=== PATIENT | female | born 1970 | race Caucasian/White ===

== ENCOUNTER 2018-02-18 16:32 | Emergency (ER) | payer SELFPAY ==
[2018-02-18 17:11] LABS: Urine Blood NEGATIVE (NEG); Urine Glucose 1+ (NEG); Urine Protein NEGATIVE (NEG); Urine Specific Gravity >1.030 (1.005-1.030); Urine pH 5.5 (5.0-7.0)
[2018-02-18 17:20] LABS: Urine Bacteria <20 /HPF (<20); Urine Culture Reflex Order NOT NEEDED; Urine RBC NONE SEEN /HPF (NONE SEEN)
[2018-02-18 19:41] LABS: Absolute Monocytes 1.2 K/uL (0.1-1.3); Absolute Neutrophil 8.1 K/uL (1.8-8.0); Basophils % 0.7 % (0-1.3); Eosinophils % 1.3 % (0-4.4); Hematocrit 41.2 % (36.0-45.0); Lymphocytes % 34.2 % (15.3-44.8); MCH 29.9 pg (27.0-35.0); MPV 9.7 fL (7.6-11.3); Monocytes % 8.1 % (3.3-12.3); RBC Red Blood Cell Count 4.63 M/uL (3.86-4.86)
[2018-02-18 19:49] LABS: Potassium 3.8 mEq/L (3.6-5.0)
--- NOTE | 2018-02-18 20:45 | RAD REPORT ---
EXAM DESCRIPTION: CT - Abdomen Pelvis W Contrast - 02/18/2018 8:16 pm CLINICAL HISTORY: Abdominal pain/left upper quadrant pain x1 week COMPARISON: September 2017 TECHNIQUE: Computed axial tomography of the abdomen pelvis was obtained. 100 cc Isovue-300 was admin istered intravenously. Oral contrast was not requested which limits evaluation of bowel. All CT scans are performed using dose optimization technique as appropriate and may include automated exposure control or mA/KV adjustment according to patient size. FINDINGS: Fatty infiltration liver is present. Spleen, pancreas, adrenal and kidneys appear unremarkable. There is no evidence of diverticulitis. The appendix is normal. A 2 centimeter right ovarian cyst is present without significant free-fluid. The gallbladder has been removed. 7 millimeter right pericardiac lymph node is stable. The appendix appears normal IMPRESSION: 2 centimeter right ovarian cyst without significant free-fluid.
[2018-02-18] MEDS ORDERED: KETOROLAC 30 MG/ML INJ ONE (21:19)
--- NOTE | 2018-02-18 21:27 | EDPHYS ---
Physician Documentation [facility] Name: Pamela Bassett Age: 47 yrs Sex: Female : 1970 Arrival Date: 02/18/2018 Time: 16:33 Bed 13 Private MD: Lavon Hightower ED Physician Sandoval Morton HPI: 02/18 17:55 This 47 yrs old Female presents to ER via Ambulatory with complaints of Groin kb Pain. 17:55 The patient presents with abdominal pain in the left lower quadrant. Onset: The kb symptoms/episode began/occurred 1 week(s) ago. The symptoms do not radiate. Associated signs and symptoms: none. The symptoms are described as achy, constant. Modifying factors: The symptoms are alleviated by nothing, the symptoms are aggravated by nothing. Severity of pain: At its worst the pain was moderate in the emergency department the pain is unchanged. The patient has not experienced similar symptoms in the past. The patient has not recently seen a physician. Pt reports left lower abd pain that started a week ago. States she hasn't had any other symptoms. Called PCP today for continued pain and was told to come to ER for evaluation because they couldn't see her for 2 weeks. . 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 hb Historical: - Allergies: 16:38 No Known Allergies; hb - Home Meds: 16:38 diclofenac sodium 75 mg Oral TbEC 1 tab 2 times per day [Active]; dicyclomine 20 mg hb Oral tab 1 tab 3 times per day [Active]; lisinopril 5 mg Oral tab 1 tab once daily [Active]; losartan 50 mg Oral tab 1 tab once daily [Active]; metformin 500 mg Oral Tb24 1 tab once daily [Active]; promethazine 12.5 mg Oral tab 1 tab every 8 hours as needed [Active]; spironolactone 25 mg Oral tab 1 tab once daily [Active]; - PMHx: 16:38 Diabetes - NIDDM; Hypertension; Irritable bowel syndrome; Migraines; PUD; hb - PSHx: 16:38 Cholecystectomy; Tonsillectomy; hb - Immunization history:: Adult Immunizations up to date. - Social history:: Smoking status: Patient/guardian denies using tobacco. ROS: 17:54 Constitutional: Negative for fever, chills, and weight loss, Cardiovascular: Negative kb for chest pain, palpitations, and edema, Respiratory: Negative for shortness of breath, cough, wheezing, and pleuritic chest pain, Back: Negative for injury and pain, : Negative for injury, bleeding, discharge, and swelling, MS/Extremity: Negative for injury and deformity, Skin: Negative for injury, rash, and discoloration, Neuro: Negative for headache, weakness, numbness, tingling, and seizure. 17:54 Abdomen/GI: Positive for abdominal pain, Negative for nausea, vomiting, and diarrhea, constipation, abdominal cramps, abdominal distension, anorexia. Exam: 17:54 Constitutional: This is a well developed, well nourished patient who is awake, alert, kb and in no acute distress. Head/Face: Normocephalic, atraumatic. Chest/axilla: Normal chest wall appearance and motion. Nontender with no deformity. No lesions are appreciated. Cardiovascular: Regular rate and rhythm with a normal S1 and S2. No gallops, murmurs, or rubs. Normal PMI, no JVD. No pulse deficits. Respiratory: Lungs have equal breath sounds bilaterally, clear to auscultation and percussion. No rales, rhonchi or wheezes noted. No increased work of breathing, no retractions or nasal flaring. Back: No spinal tenderness. No costovertebral tenderness. Full range of motion. Skin: Warm, dry with normal turgor. Normal color with no rashes, no lesions, and no evidence of cellulitis. MS/ Extremity: Pulses equal, no cyanosis. Neurovascular intact. Full, normal range of motion. Neuro: Awake and alert, GCS 15, oriented to person, place, time, and situation. Cranial nerves II-XII grossly intact. Motor strength 5/5 in all extremities. Sensory grossly intact. Cerebellar exam normal. Normal gait. 17:54 Abdomen/GI: Inspection: abdomen appears normal, Bowel sounds: normal, in all quadrants, Palpation: soft, in all quadrants, nontender, in the right upper quadrant, left upper quadrant and right lower quadrant, moderate abdominal tenderness, in the left lower quadrant. Vital Signs: 16:38 BP 145 / 92; Pulse 93; Resp 20; Temp 98.9; Pulse Ox 100% on R/A; Weight 120.2 kg; hb Height 5 ft. 5 in. (165.10 cm); Pain 9/10; 18:00 BP 138 / 94; Pulse 87; Resp 18; Pulse Ox 99% on R/A; ph 20:28 BP 137 / 89; Pulse 84; Resp 18; Pulse Ox 99% on R/A; mt 21:00 BP 120 / 58; Pulse 88; Resp 16; Temp 97.9(O); Pulse Ox 99% on R/A; Pain 0/10; bs1 21:30 BP 123 / 86; Pulse 82; Resp 16; Temp 97.9(O); Pulse Ox 100% ; Pain 0/10; bs1 16:38 Body Mass Index 44.10 (120.20 kg, 165.10 cm) hb MDM: 17:18 Patient medically screened. kb 17:53 Data reviewed: vital signs, nurses notes. Data interpreted: Pulse oximetry: on room air kb is 100 %. Interpretation: normal. 21:26 Counseling: I had a detailed discussion with the patient and/or guardian regarding: the kb historical points, exam findings, and any diagnostic results supporting the discharge/admit diagnosis, lab results, radiology results, the need for outpatient follow up, a family practitioner, an OB/Gyne specialist, to return to the emergency department if symptoms worsen or persist or if there are any questions or concerns that arise at home. 02/18 16:39 Order name: Urine Microscopic Only; Complete Time: 17:21 kb 02/18 17:05 Order name: Urine Dipstick--Ancillary (enter results); Complete Time: 17:19 bd 02/18 17:05 Order name: Urine --Ancillary (enter results); Complete Time: 17:19 bd 02/18 17:22 Order name: CBC with Diff; Complete Time: 19:48 kb 02/18 17:22 Order name: Basic Metabolic Panel; Complete Time: 19:50 kb 02/18 17:22 Order name: CT Abd/Pelvis - W/Contrast; Complete Time: 20:46 kb 02/18 16:39 Order name: Urine Dipstick-Ancillary (obtain specimen); Complete Time: 18:29 kb 02/18 17:22 Order name: IV Start; Complete Time: 18:26 kb Administered Medications: 21:35 Drug: TORadol 30 mg Route: IVP; Site: right antecubital; bs1 22:16 Follow up: Response: No adverse reaction bs1 Disposition: 02/18/18 21:27 Discharged to Home. Impression: Lower abdominal pain, unspecified. - Condition is Stable. - Discharge Instructions: Abdominal Pain, Women. - Medication Reconciliation Form, Thank You Letter, Antibiotic Education, Prescription Opioid Use form. - Follow up: Emergency Department; When: As needed; Reason: Worsening of condition. Follow up: Private Physician; When: 2 - 3 days; Reason: Recheck today's complaints, Continuance of care, Re-evaluation by your physician. Addendum: 02/22/2018 19:16 Co-signature as Attending Physician, Sandoval Morton MD. g s Signatures: Dispatcher [employer] EDMS Melanie Mckeon, DONNA-Tri THOMPSON-Lashell Palacios, RN RN Sandoval Morton MD MD gs Salazar, Brittany, RN RN bs1 Corrections: (The following items were deleted from the chart) 02/18 22:16 21:27 02/18/2018 21:27 Discharged to Home. Impression: Lower abdominal pain, bs1 unspecified. Condition is Stable. Forms are Medication Reconciliation Form, Thank You Letter, Antibiotic Education, Prescription Opioid Use. Follow up: Emergency Department; When: As needed; Reason: Worsening of condition. Follow up: Private Physician; When: 2 - 3 days; Reason: Recheck today's complaints, Continuance of care, Re-evaluation by your physician. kb
--- NOTE | 2018-02-18 21:27 | ER ---
Nurse's Notes [facility] Name: Pamela Bassett Age: 47 yrs Sex: Female : 1970 Arrival Date: 02/18/2018 Time: 16:33 Bed 13 Private MD: Lavon Hightower Diagnosis: Lower abdominal pain, unspecified Presentation: 02/18 16:36 Presenting complaint: Patient states: Left groin pain 9/10 that radiates to LUQ x 1 hb week. Denies fever/urinary s/s. Transition of care: patient was not received from another setting of care. Onset of symptoms is unknown. Initial Sepsis Screen: Does the patient meet any 2 criteria? No. Patient's initial sepsis screen is negative. Does the patient have a suspected source of infection? No. Patient's initial sepsis screen is negative. Care prior to arrival: None. 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 hb Historical: - Allergies: 16:38 No Known Allergies; hb - Home Meds: 16:38 diclofenac sodium 75 mg Oral TbEC 1 tab 2 times per day [Active]; dicyclomine 20 mg hb Oral tab 1 tab 3 times per day [Active]; lisinopril 5 mg Oral tab 1 tab once daily [Active]; losartan 50 mg Oral tab 1 tab once daily [Active]; metformin 500 mg Oral Tb24 1 tab once daily [Active]; promethazine 12.5 mg Oral tab 1 tab every 8 hours as needed [Active]; spironolactone 25 mg Oral tab 1 tab once daily [Active]; - PMHx: 16:38 Diabetes - NIDDM; Hypertension; Irritable bowel syndrome; Migraines; PUD; hb - PSHx: 16:38 Cholecystectomy; Tonsillectomy; hb - Immunization history:: Adult Immunizations up to date. - Social history:: Smoking status: Patient/guardian denies using tobacco. Screenin:27 Abuse screen: Denies threats or abuse. Denies injuries from another. Nutritional ph screening: No deficits noted. Tuberculosis screening: No symptoms or risk factors identified. Fall Risk None identified. Assessment: 17:30 General: Appears in no apparent distress. comfortable, obese, well groomed, Behavior is ph calm, cooperative, appropriate for age, Denies fever. Pain: Complains of pain in left femoral area and left inguinal area. 19:15 Reassessment: Patient appears in no apparent distress at this time. Patient and/or bs1 family updated on plan of care and expected duration. Pain level reassessed. Patient is alert, oriented x 3, equal unlabored respirations, skin warm/dry/pink. 19:15 Neuro: Level of Consciousness is awake, alert, obeys commands. Cardiovascular: Denies bs1 chest pain, Heart tones S1 S2 present Capillary refill < 3 seconds Patient's skin is warm and dry. Respiratory: Airway is patent. GI: Parent/caregiver reports the patient having pain in left femoral/inguinal area. 20:15 Reassessment: Patient appears in no apparent distress at this time. No changes from bs1 previously documented assessment. Patient and/or family updated on plan of care and expected duration. Pain level reassessed. Patient is alert, oriented x 3, equal unlabored respirations, skin warm/dry/pink. 21:45 Reassessment: Patient appears in no apparent distress at this time. Patient and/or bs1 family updated on plan of care and expected duration. Pain level reassessed. Patient is alert, oriented x 3, equal unlabored respirations, skin warm/dry/pink. Patient states symptoms have improved. Vital Signs: 16:38 BP 145 / 92; Pulse 93; Resp 20; Temp 98.9; Pulse Ox 100% on R/A; Weight 120.2 kg; hb Height 5 ft. 5 in. (165.10 cm); Pain 9/10; 18:00 BP 138 / 94; Pulse 87; Resp 18; Pulse Ox 99% on R/A; ph 20:28 BP 137 / 89; Pulse 84; Resp 18; Pulse Ox 99% on R/A; mt 21:00 BP 120 / 58; Pulse 88; Resp 16; Temp 97.9(O); Pulse Ox 99% on R/A; Pain 0/10; bs1 21:30 BP 123 / 86; Pulse 82; Resp 16; Temp 97.9(O); Pulse Ox 100% ; Pain 0/10; bs1 16:38 Body Mass Index 44.10 (120.20 kg, 165.10 cm) hb ED Course: 16:33 Patient arrived in ED. as 16:33 Lavon Hightower MD is Private Physician. as 16:37 Triage completed. hb 16:38 Arm band placed on left wrist. hb 17:10 Marva Yates, RN is Primary Nurse. ph 17:18 Mel[facility] Mcke[facility]C [facility]. kb 17:18 Sandoval Morton MD is Attending Physician. kb 18:28 Patient has correct armband on for positive identification. Bed in low position. Call ph light in reach. Side rails up X 1. Pulse ox on. NIBP on. Warm blanket given. 18:28 Initial lab(s) drawn, by me, sent to lab. Inserted saline lock: 22 gauge in right ph antecubital area, using aseptic technique. Blood collected. 19:19 Radiology exam delayed due to lab results not completed at this time. (BUN/Creatinine). 19:43 Radiology exam delayed due to lab results not completed at this time. (BUN/Creatinine). nj 20:[address] via wheelchair. nj 20:16 CT completed. Patient tolerated procedure well. Patient moved back from CT. nj 20:16 CT Abd/Pelvis - W/Contrast In Process Unspecified. EDMS 22:13 No provider procedures requiring assistance completed. IV discontinued, bleeding bs1 controlled, No redness/swelling at site. Pressure dressing applied. Administered Medications: 21:35 Drug: TORadol 30 mg Route: IVP; Site: right antecubital; bs1 22:16 Follow up: Response: No adverse reaction bs1 Outcome: 21:27 Discharge ordered by MD. kb 22:13 Discharged to home ambulatory. bs1 22:13 Condition: stable 22:13 Discharge instructions given to patient, Instructed on discharge instructions, follow up and referral plans. Demonstrated understanding of instructions, follow-up care. 22:16 Patient left the ED. bs1 Signatures: Dispatcher [employer] EDMS Melanie Mckeon FNP-C FNP-Ckb Jones, Susan sj Martinez, Amelia as Marva Yates, DONTE KENT Lashell Diaz RN RN Nii Jackson Moriah il Nora Newman RN RN bs1 Corrections: (The following items were deleted from the chart) 22:13 21:24 BP 161 / 76; Pulse 73bpm; Resp 16bpm; Pulse Ox 96% RA; Temp 97.9F Oral; Pain bs1 0/10; bs1 22:13 22:10 BP 157 / 72; Pulse 73bpm; Resp 17bpm; Pulse Ox 100%; Temp 97.9F Oral; Pain 0/10; bs1 bs1
[2018-02-18 22:30] VITALS: TEMP 97.9
[2018-02-18 22:32] VITALS: BP 123/86; O2SAT 100
== END 2018-02-18 22:16 | disposition home or self-care (01) ==
LOC: ER 16:32
DX: R10.32 Left lower quadrant pain (principal); I10 Essential (primary) hypertension; E11.9 Type 2 diabetes mellitus without complications
CPT/HCPCS: 36415; 74177; 80048; 81003; 81015; 81025; 85025; 96374; 99284; Q9967

== ENCOUNTER 2018-04-12 12:46 | Emergency (ER) | payer SELFPAY ==
[2018-04-12] MEDS ORDERED: NA CHLORIDE 0.9% 1,000 ML ONE (13:31)
[2018-04-12 13:46] LABS: Absolute Lymphocytes (CBC) 3.2 K/uL (0.7-4.9); Absolute Monocytes 0.7 K/uL (0.1-1.3); Absolute Neutrophil 6.8 K/uL (1.8-8.0); Hematocrit 46.1 % (36.0-45.0); Lymphocytes % 29.1 % (15.3-44.8); MCH 29.8 pg (27.0-35.0); MCV 89.5 fL (80-100); MPV 9.9 fL (7.6-11.3); Monocytes % 6.2 % (3.3-12.3); RBC Red Blood Cell Count 5.15 M/uL (3.86-4.86)
[2018-04-12 14:20] LABS: ALT/SGPT 27 U/L (12-78); AST/SGOT 22 U/L (15-37); Albumin 3.7 g/dL (3.4-5.0); Alkaline Phosphatase 86 U/L (45-117); BUN Blood Urea Nitrogen 16 mg/dL (7-18); Bicarbonate 26 mmol/L (21-32); Bilirubin Direct 0.1 mg/dL (0-0.2); Bilirubin Total 0.7 mg/dL (0.2-1.0); Creatine Phosphokinase 38 U/L (26-192); Glucose Level 288 mg/dL (74-106); Potassium 4.4 mmol/L (3.5-5.1); Protein, Total 8.3 g/dL (6.4-8.2); Sodium Level 131 mmol/L (136-145)
--- NOTE | 2018-04-12 15:03 | EDPHYS ---
Physician Documentation [facility] Name: Pamela Bassett Age: 47 yrs Sex: Female : 1970 Arrival Date: 04/12/2018 Time: 12:48 Bed 23 Private MD: None, None ED Physician Harjinder Pool HPI: 04/12 13:20 This 47 yrs old Female presents to ER via Ambulatory with complaints of High jr8 Blood Sugar. 13:20 Onset: The symptoms/episode began/occurred gradually. Associated signs and symptoms: jr8 Pertinent positives: nausea, vomiting. Current symptoms: In the emergency department the patient's symptoms are unchanged from the initial presentation. The patient has not experienced similar symptoms in the past. The patient has been recently seen by a physician:. Patient stated that she blood glucose has been more elevated and A1c came back high. Stated that PCP increased her metformin from 1000mg per day to 2000mg per day and started her on glipizide but has not filled that one yet. Took first increased dose of metformin today. While going to work had n/v, GI upset. Feels weak and has had mild muscle cramping in thighs . 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 - Social history:: Smoking status: Patient/guardian denies using tobacco, Patient/guardian denies using alcohol. - Ebola Screening: : No symptoms or risks identified at this time. ROS: 13:20 Eyes: Negative for injury, pain, redness, and discharge, ENT: Negative for injury, jr8 pain, and discharge, Neck: Negative for injury, pain, and swelling, Cardiovascular: Negative for chest pain, palpitations, and edema, Respiratory: Negative for shortness of breath, cough, wheezing, and pleuritic chest pain, Back: Negative for injury and pain, MS/Extremity: Negative for injury and deformity, Skin: Negative for injury, rash, and discoloration, Neuro: Negative for headache, weakness, numbness, tingling, and seizure. 13:20 Constitutional: Positive for malaise. 13:20 Abdomen/GI: Positive for nausea and vomiting, Negative for abdominal pain, diarrhea, abdominal distension, anorexia, dysphagia, hematemesis, black/tarry stool, rectal pain, rectal bleeding, bowel incontinence, flatulence. Exam: 13:20 Eyes: Pupils equal round and reactive to light, extra-ocular motions intact. Lids and jr8 lashes normal. Conjunctiva and sclera are non-icteric and not injected. Cornea within normal limits. Periorbital areas with no swelling, redness, or edema. ENT: Nares patent. No nasal discharge, no septal abnormalities noted. Tympanic membranes are normal and external auditory canals are clear. Oropharynx with no redness, swelling, or masses, exudates, or evidence of obstruction, uvula midline. Mucous membranes moist. Neck: Trachea midline, no thyromegaly or masses palpated, and no cervical lymphadenopathy. Supple, full range of motion without nuchal rigidity, or vertebral point tenderness. No Meningismus. Cardiovascular: Regular rate and rhythm with a normal S1 and S2. No gallops, murmurs, or rubs. Normal PMI, no JVD. No pulse deficits. Respiratory: Lungs have equal breath sounds bilaterally, clear to auscultation and percussion. No rales, rhonchi or wheezes noted. No increased work of breathing, no retractions or nasal flaring. Abdomen/GI: Soft, non-tender, with normal bowel sounds. No distension or tympany. No guarding or rebound. No evidence of tenderness throughout. Back: No spinal tenderness. No costovertebral tenderness. Full range of motion. Skin: Warm, dry with normal turgor. Normal color with no rashes, no lesions, and no evidence of cellulitis. MS/ Extremity: Pulses equal, no cyanosis. Neurovascular intact. Full, normal range of motion. Neuro: Awake and alert, GCS 15, oriented to person, place, time, and situation. Cranial nerves II-XII grossly intact. Motor strength 5/5 in all extremities. Sensory grossly intact. Cerebellar exam normal. Normal gait. Vital Signs: 12:56 BP 151 / 90; Pulse 97; Resp 20; Temp 98.4; Pulse Ox 97% ; Weight 133.81 kg; Height 5 sv ft. 5 in. (165.10 cm); Pain 0/10; 14:06 BP 116 / 89; Pulse 87; Resp 18; Pulse Ox 96% ; tl3 14:52 BP 125 / 75; Pulse 92; Resp 16; Pulse Ox 99% on R/A; tl3 12:56 Body Mass Index 49.09 (133.81 kg, 165.10 cm) sv MDM: 13:02 Patient medically screened. jr8 15:01 Data reviewed: vital signs, nurses notes, lab test result(s), and as a result, I will jr8 discharge patient. Data interpreted: Pulse oximetry: on room air is 99 %. Interpretation: normal. Counseling: I had a detailed discussion with the patient and/or guardian regarding: the historical points, exam findings, and any diagnostic results supporting the discharge/admit diagnosis, lab results, the need for outpatient follow up, a family practitioner, to return to the emergency department if symptoms worsen or persist or if there are any questions or concerns that arise at home. Response to treatment: the patient's symptoms have markedly improved after treatment, patient is well hydrated. ED course: Discussed with patient that this was more then likely side effect of increasing metformin. To f/u with PCP for adjustment . 04/12 13:16 Order name: CBC with Diff; Complete Time: 14:21 04/12 13:16 Order name: Basic Metabolic Panel; Complete Time: 14:21 04/12 13:16 Order name: IV; Complete Time: 13:40 8 04/12 13:16 Order name: LFT's; Complete Time: 14:21 04/12 13:16 Order name: CK; Complete Time: 14:21 04/12 13:16 Order name: Glucose Level; Complete Time: 13:30 Administered Medications: 13:40 Drug: NS 0.9% 1000 ml Route: IV; Rate: 1000 ml; Site: right forearm; Delivery: Primary tl3 tubing; 14:52 Follow up: IV Status: Completed infusion; IV Intake: 1000ml tl3 Point of Care Testing: Blood Glucose: 12:57 Blood Glucose: 253 mg/dL; sv 15:09 Blood Glucose: 191 mg/dL; tl3 Ranges: Critical Glucose Levels:Adult <50 mg/dl or >400 mg/dl <40 mg/dl or >180 mg/dl Disposition: 16:51 Co-signature as Attending Physician, Harjinder Pool MD. rn Disposition: 04/12/18 15:02 Discharged to Home. Impression: Hyperglycemia, unspecified, Adverse effect of insulin and oral hypoglycemic [antidiabetic] drugs. - Condition is Stable. - Discharge Instructions: Hyperglycemia, Blood Glucose Monitoring, Adult. - Medication Reconciliation Form, Thank You Letter, Antibiotic Education, Prescription Opioid Use, Work release form form. - Follow up: Private Physician; When: 2 - 3 days; Reason: Recheck today's complaints, Continuance of care, Re-evaluation by your physician. - Problem is new. - Symptoms have improved. Signatures: Dispatcher [employer] [place] Lee RN RN sv Nieto, Roman, MD MD rn Roszak, Josh, PA PA jr8 Lynn Zambrano RN RN tl3 Corrections: (The following items were deleted from the chart) 15:18 15:02 04/12/2018 15:02 Discharged to Home. Impression: Hyperglycemia, unspecified; tl3 Adverse effect of insulin and oral hypoglycemic [antidiabetic] drugs. Condition is Stable. Forms are Medication Reconciliation Form, Thank You Letter, Antibiotic Education, Prescription Opioid Use. Follow up: Private Physician; When: 2 - 3 days; Reason: Recheck today's complaints, Continuance of care, Re-evaluation by your physician. Problem is new. Symptoms have improved. jr8
--- NOTE | 2018-04-12 15:03 | ER ---
Nurse's Notes [facility] Name: Pamela Bassett Age: 47 yrs Sex: Female : 1970 Arrival Date: 04/12/2018 Time: 12:48 Bed 23 Private MD: None, None Diagnosis: Hyperglycemia, unspecified;Adverse effect of insulin and oral hypoglycemic [antidiabetic] drugs Presentation: 04/12 12:52 Presenting complaint: Patient states: hyperglycemia [id number], Metformin changed yesterday sv from 500 mg to 2000 mg. c/o vomiting/dizziness. Transition of care: patient was not received from another setting of care. Onset of symptoms was April 12, 2018. Risk Assessment: Do you want to hurt yourself or someone else? Patient reports no desire to harm self or others. Care prior to arrival: None. 12:52 Method Of Arrival: Ambulatory sv 12:52 Acuity: ITALO 3 sv 15:10 Initial Sepsis Screen: Does the patient meet any 2 criteria? No. Patient's initial tl3 sepsis screen is negative. Does the patient have a suspected source of infection? No. Patient's initial sepsis screen is negative. 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 - Social history:: Smoking status: Patient/guardian denies using tobacco, Patient/guardian denies using alcohol. - Ebola Screening: : No symptoms or risks identified at this time. Screenin:05 Abuse screen: Denies threats or abuse. Nutritional screening: No deficits noted. tl3 Tuberculosis screening: No symptoms or risk factors identified. Fall Risk None identified. Assessment: 13:05 General: Appears uncomfortable, obese, well groomed, well developed, well nourished, tl3 Behavior is calm, cooperative, appropriate for age. Pain: Denies pain. Neuro: No deficits noted. Level of Consciousness is awake, alert, obeys commands, Oriented to person, place, time, situation, Appropriate for age. Cardiovascular: Heart tones S1 S2 present Patient's skin is warm and dry. Respiratory: Airway is patent Respiratory effort is even, unlabored, Respiratory pattern is regular, symmetrical. GI: Reports nausea, vomiting, since three times today. Pt Metformin dose was increased to 2000 mg per day yesterday had 1000 mg last pm and 1000 mg this am, pt called PCP and was told to come in to ER since she was vomiting. Glipizide also prescribed yesterday but not picked up from the pharmacy yet. 13:05 : No signs and/or symptoms were reported regarding the genitourinary system. EENT: No tl3 signs and/or symptoms were reported regarding the EENT system. Derm: No signs and/or symptoms reported regarding the dermatologic system. Musculoskeletal: No signs and/or symptoms reported regarding the musculoskeletal system. 14:52 Reassessment: Patient appears in no apparent distress at this time. Patient and/or tl3 family updated on plan of care and expected duration. Pain level reassessed. Patient is alert, oriented x 3, equal unlabored respirations, skin warm/dry/pink. pt resting quietly. Vital Signs: 12:56 BP 151 / 90; Pulse 97; Resp 20; Temp 98.4; Pulse Ox 97% ; Weight 133.81 kg; Height 5 sv ft. 5 in. (165.10 cm); Pain 0/10; 14:06 BP 116 / 89; Pulse 87; Resp 18; Pulse Ox 96% ; tl3 14:52 BP 125 / 75; Pulse 92; Resp 16; Pulse Ox 99% on R/A; tl3 12:56 Body Mass Index 49.09 (133.81 kg, 165.10 cm) sv ED Course: 12:48 Patient arrived in ED. mr 12:48 None, None is Private Physician. mr 12:54 Triage completed. sv 12:57 Arm band placed on right wrist. sv 12:59 Lynn Zambrano, DONTE is Primary Nurse. tl3 13:02 Luis Miguel Bryant PA is PHCP. jr8 13:02 Harjinder Pool MD is Attending Physician. jr8 13:05 Patient has correct armband on for positive identification. Bed in low position. Call tl3 light in reach. Side rails up X 1. 13:05 No provider procedures requiring assistance completed. tl3 13:41 Initial lab(s) drawn, by me, sent to lab. Inserted saline lock: 20 gauge in right tl3 forearm, using aseptic technique. Blood collected. 15:09 IV discontinued, intact, bleeding controlled, No redness/swelling at site. Pressure tl3 dressing applied. Administered Medications: 13:40 Drug: NS 0.9% 1000 ml Route: IV; Rate: 1000 ml; Site: right forearm; Delivery: Primary tl3 tubing; 14:52 Follow up: IV Status: Completed infusion; IV Intake: 1000ml tl3 Point of Care Testing: Blood Glucose: 12:57 Blood Glucose: 253 mg/dL; sv 15:09 Blood Glucose: 191 mg/dL; tl3 Ranges: Intake: 14:52 IV: 1000ml; Total: 1000ml. tl3 Outcome: 15:02 Discharge ordered by MD. corado 15:10 Discharged to home ambulatory. tl3 15:10 Condition: good 15:10 Discharge instructions given to patient, Instructed on discharge instructions, follow up and referral plans. Demonstrated understanding of instructions, follow-up care, medications. 15:18 Patient left the ED. tl3 Signatures: Africa Olivarez, RN RN Birgit Sarmiento mr Luis Miguel Bryant PA PA jr8 Lowrey, Tammy, RN RN tl3 Corrections: (The following items were deleted from the chart) 13:11 13:05 GI: Reports nausea, vomiting, since three times today. Pt Metformin dose was tl3 increased to 2000 mg per day yesterday had 1000 mg last pm and 1000 mg this am, pt called PCP and was told to come in to ER since she was vomiting tl3
[2018-04-12 15:25] VITALS: TEMP 98.4
[2018-04-12 15:30] VITALS: BP 125/75; O2SAT 99
== END 2018-04-12 15:18 | disposition home or self-care (01) ==
LOC: ER 12:46
DX: E11.65 Type 2 diabetes mellitus with hyperglycemia (principal); T38.3X5A Adverse effect of insulin and oral hypoglycemic [antidiabetic] drugs, initial encounter; I10 Essential (primary) hypertension
CPT/HCPCS: 36415; 80048; 80076; 82550; 82962; 85025; 96360; 99284; J7030

== ENCOUNTER 2018-07-06 13:59 | Emergency (ER) | payer SELFPAY ==
--- NOTE | 2018-07-06 15:07 | RAD REPORT ---
EXAM DESCRIPTION: Alycia Single View07/06/2018 2:42 pm CLINICAL HISTORY: Chest pain COMPARISON: September 2017 FINDINGS: The lungs appear clear of acute infiltrate. The heart is upper limits normal size IMPRESSION: No acute abnormalities displayed
[2018-07-06 15:25] LABS: Absolute Lymphocytes (CBC) 4.7 K/uL (0.7-4.9); Absolute Monocytes 0.7 K/uL (0.1-1.3); Absolute Neutrophil 6.8 K/uL (1.8-8.0); Basophils % 0.6 % (0-1.3); Eosinophils % 1.2 % (0-4.4); Hematocrit 43.4 % (36.0-45.0); Lymphocytes % 37.7 % (15.3-44.8); MCH 29.9 pg (27.0-35.0); MCV 89.6 fL (80-100); Monocytes % 5.9 % (3.3-12.3); RBC Red Blood Cell Count 4.84 M/uL (3.86-4.86)
[2018-07-06 15:36] LABS: Protime INR 0.97
[2018-07-06 15:48] LABS: ALT/SGPT 25 U/L (12-78); AST/SGOT 14 U/L (15-37); Albumin 3.7 g/dL (3.4-5.0); Alkaline Phosphatase 82 U/L (45-117); BUN Blood Urea Nitrogen 13 mg/dL (7-18); Bicarbonate 25 mmol/L (21-32); Bilirubin Direct 0.2 mg/dL (0-0.2); Bilirubin Total 0.6 mg/dL (0.2-1.0); CKMB Creatine Kinase MB < 1.0 ng/mL (0.3-3.6); Creatine Phosphokinase 41 U/L (26-192); Glucose Level 226 mg/dL (74-106); Magnesium 1.8 mg/dL (1.8-2.4); NT PRO-BNP 91 pg/mL (<125); Potassium 4.2 mmol/L (3.5-5.1); Sodium Level 134 mmol/L (136-145); Troponin (Emerg Dept Use Only) < 0.02 ng/mL (0.0-0.045)
[2018-07-06 15:56] LABS: Urine Blood NEGATIVE (NEG); Urine Glucose 2+ (NEG); Urine Protein NEGATIVE (NEG)
[2018-07-06] MEDS ORDERED: ACETAMINOPHEN 325 MG TABLET ONE (16:15)
[2018-07-06] MEDS ORDERED: NA CHLORIDE 0.9% 1,000 ML ONE ×2 (16:40→20:25)
--- NOTE | 2018-07-06 18:03 | EDPHYS ---
Physician Documentation [facility] Name: Pamela Bassett Age: 48 yrs Sex: Female : 1970 Arrival Date: 07/06/2018 Time: 14:07 Bed 19 Private MD: ED Physician Korey Scruggs HPI: 07/06 14:47 This 48 yrs old Female presents to ER via EMS with complaints of Weakness, jmm elevated glucose. 14:47 Onset: The symptoms/episode began/occurred this morning. The patient has experienced jmm similar episodes in the past. This is a 48 year old female with a history of DM, HTN that presents to the ED with generalized weakness. Patient states her blood glucose has been elevated at home. Is currently taking metformin XR 1000 mg BID. Patient patricia SOB, vomiting, abdominal pain, cough. . 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 - Social history:: Smoking status: Patient/guardian denies using tobacco. - Ebola Screening: : Patient negative for fever greater than or equal to 101.5 degrees Fahrenheit, and additional compatible Ebola Virus Disease symptoms Patient denies exposure to infectious person Patient denies travel to an Ebola-affected area in the 21 days before illness onset No symptoms or risks identified at this time. ROS: 14:47 Eyes: Negative for injury, pain, redness, and discharge, Cardiovascular: Negative for jmm chest pain, palpitations, and edema, Respiratory: Negative for shortness of breath, cough, wheezing, and pleuritic chest pain, Abdomen/GI: Negative for abdominal pain, nausea, vomiting, diarrhea, and constipation. 14:47 Constitutional: Positive for malaise. 14:47 Neuro: Positive for weakness. 14:47 All other systems are negative. Exam: 14:47 Head/Face: atraumatic. Chest/axilla: Normal chest wall appearance and motion. [facility] Cardiovascular: Regular rate and rhythm. No edema appreciated Respiratory: Normal respirations, no respiratory distress appreciated Abdomen/GI: Non distended, soft 14:47 Constitutional: The patient appears in no acute distress, alert, awake. 14:47 Abdomen/GI: Inspection: abdomen appears normal, Bowel sounds: normal, Palpation: abdomen is soft and non-tender. 14:47 Back: ROM is normal. 14:47 Musculoskeletal/extremity: ROM: intact in all extremities. 14:47 Skin: Appearance: Color: normal in color. 14:47 Neuro: Orientation: is normal, Mentation: is normal, Memory: is normal. 14:47 Psych: Behavior/mood is pleasant, cooperative. Vital Signs: 14:12 BP 130 / 74; Pulse 59; Resp 18; Pulse Ox 100% on R/A; Weight 122.47 kg; Height 5 ft. 5 em in. (165.10 cm); Pain 5/10; 15:30 BP 117 / 66; Pulse 87; Resp 18; Pulse Ox 100% on R/A; Pain 5/10; em 16:39 BP 118 / 73; Pulse 87; Resp 16; Pulse Ox 98% on R/A; em 17:54 BP 107 / 72; Pulse 78; Resp 16; Pulse Ox 98% on R/A; Pain 2/10; em 14:12 Body Mass Index 44.93 (122.47 kg, 165.10 cm) em MDM: 14:45 Patient medically screened. [facility] 17:26 Data reviewed: vital signs, nurses notes, lab test result(s), EKG, radiologic studies. [facility] Data interpreted: Pulse oximetry: on room air is 98 %. Interpretation: normal. Counseling: I had a detailed discussion with the patient and/or guardian regarding: the historical points, exam findings, and any diagnostic results supporting the discharge/admit diagnosis, lab results, radiology results, the need for outpatient follow up, to return to the emergency department if symptoms worsen or persist or if there are any questions or concerns that arise at home. 07/06 14:17 Order name: Basic Metabolic Panel [facility] 07/06 14:17 Order name: CBC with Diff; Complete Time: 16:03 [facility] 07/06 14:17 Order name: Ckmb; Complete Time: 16:03 [facility] 07/06 14:17 Order name: CPK; Complete Time: 16:03 [facility] 07/06 14:17 Order name: LFT's; Complete Time: 16:03 [facility] 07/06 14:17 Order name: Magnesium; Complete Time: 16:03 [facility] 07/06 14:17 Order name: NT PRO-BNP; Complete Time: 16:03 [facility] 07/06 14:17 Order name: PT-INR; Complete Time: 16:03 [facility] 07/06 14:17 Order name: Ptt, Activated; Complete Time: 16:03 [facility] 07/06 14:17 Order name: Troponin (emerg Dept Use Only); Complete Time: 16:03 [facility] 07/06 14:17 Order name: Basic Metabolic Panel; Complete Time: 16:03 [facility] 07/06 15:23 Order name: Urine Dipstick--Ancillary (enter results) ag 07/06 15:23 Order name: Urine --Ancillary (enter results) ag 07/06 15:23 Order name: Urine Dipstick-Ancillary; Complete Time: 16:03 [facility] 07/06 14:17 Order name: XRAY Chest (1 view); Complete Time: 15:17 [facility] 07/06 14:17 Order name: EKG; Complete Time: 14:18 [facility] 07/06 14:17 Order name: Cardiac monitoring; Complete Time: 15:00 [facility] 07/06 14:17 Order name: EKG - Nurse/Tech; Complete Time: 15:00 [facility] 07/06 14:17 Order name: IV Saline Lock; Complete Time: 15:00 [facility] 07/06 14:17 Order name: Labs collected and sent; Complete Time: 15:00 [facility] 07/06 14:17 Order name: O2 Per Protocol; Complete Time: 15:00 [facility] 07/06 14:17 Order name: O2 Sat Monitoring; Complete Time: 15:00 [facility] 07/06 14:17 Order name: Urine Dipstick-Ancillary (obtain specimen); Complete Time: 15:59 [facility] 07/06 15:23 Order name: Urine --Ancillary; Complete Time: 16:03 [facility] 07/06 16:26 Order name: Glucose Level; Complete Time: 16:41 jmm Administered Medications: 16:16 Drug: Tylenol 650 mg Route: PO; em 17:30 Follow up: Response: No adverse reaction; Pain is decreased em 16:38 Drug: NS 0.9% 1000 ml Route: IV; Rate: 1 bolus; Site: right antecubital; em 18:16 Follow up: IV Status: Completed infusion; IV Intake: 1000ml em Point of Care Testing: Blood Glucose: 14:50 Blood Glucose: 203 mg/dL; mh5 17:54 Blood Glucose: 132 mg/dL; em Ranges: Critical Glucose Levels:Adult <50 mg/dl or >400 mg/dl <40 mg/dl or >180 mg/dl Disposition: 07/06/18 18:03 Discharged to Home. Impression: Hyperglycemia, unspecified. - Condition is Stable. - Discharge Instructions: Hyperglycemia. - Medication Reconciliation Form, Thank You Letter, Antibiotic Education, Prescription Opioid Use form. - Follow up: Private Physician; When: 2 - 3 days; Reason: Recheck today's complaints, Continuance of care, Re-evaluation by your physician. Addendum: 07/08/2018 08:00 Co-signature as Attending Physician, Korey Scruggs MD I agree with the assessment and w a plan of care. Signatures: Dispatcher [employer] EDMS David Stone PA PA jmm Munoz, Edgar, MOLDED RUBBER GOODS CUTTER MOLDED RUBBER GOODS CUTTER Korey Scruggs MD MD al Corrections: (The following items were deleted from the chart) 07/06 18:24 18:03 07/06/2018 18:03 Discharged to Home. Impression: Hyperglycemia, unspecified. em Condition is Stable. Forms are Medication Reconciliation Form, Thank You Letter, Antibiotic Education, Prescription Opioid Use. Follow up: Private Physician; When: 2 - 3 days; Reason: Recheck today's complaints, Continuance of care, Re-evaluation by your physician. luly
--- NOTE | 2018-07-06 18:03 | ER ---
Nurse's Notes [facility] Name: Pamela Bassett Age: 48 yrs Sex: Female : 1970 Arrival Date: 07/06/2018 Time: 14:07 Bed 19 Private MD: Diagnosis: Hyperglycemia, unspecified Presentation: 07/06 14:08 Presenting complaint: EMS states: called out for not feeling well that started today, em pt checked glucose was 422, EMS checked it and it was 244, also complains of nausea, dizziness and headache, hx of diabetes, VSS. Transition of care: patient was not received from another setting of care. Onset of symptoms was July 06, 2018. Risk Assessment: Do you want to hurt yourself or someone else? Patient reports no desire to harm self or others. Initial Sepsis Screen: Does the patient meet any 2 criteria? No. Patient's initial sepsis screen is negative. Does the patient have a suspected source of infection? No. Patient's initial sepsis screen is negative. Care prior to arrival: None. 14:08 Method Of Arrival: EMS: [facility] em 14:41 Acuity: ITALO 3 la1 Triage Assessment: 14:12 General: Appears in no apparent distress. uncomfortable, Behavior is calm, cooperative. em Pain: Complains of pain in headache. 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 - Social history:: Smoking status: Patient/guardian denies using tobacco. - Ebola Screening: : Patient negative for fever greater than or equal to 101.5 degrees Fahrenheit, and additional compatible Ebola Virus Disease symptoms Patient denies exposure to infectious person Patient denies travel to an Ebola-affected area in the 21 days before illness onset No symptoms or risks identified at this time. Screenin:58 Abuse screen: Denies threats or abuse. Nutritional screening: No deficits noted. em Tuberculosis screening: No symptoms or risk factors identified. Fall Risk None identified. Assessment: 14:16 General: Appears in no apparent distress. uncomfortable, Behavior is calm, cooperative. em Pain: Complains of pain in headache. Neuro: Level of Consciousness is awake, alert, obeys commands, Oriented to person, place, time, situation. Cardiovascular: Capillary refill < 3 seconds Patient's skin is warm and dry. Respiratory: Airway is patent Respiratory effort is even, unlabored, Respiratory pattern is regular, symmetrical. GI: Abdomen is obese, Reports nausea. : No signs and/or symptoms were reported regarding the genitourinary system. Derm: Skin is intact, Skin is pink, warm \T\ dry. Musculoskeletal: Range of motion: intact in all extremities. 14:16 Reassessment: I agree with assessment completed by Abhijit Gomez LVN . aa5 15:00 Reassessment: Patient appears in no apparent distress at this time. Patient and/or em family updated on plan of care and expected duration. Pain level reassessed. Patient is alert, oriented x 3, equal unlabored respirations, skin warm/dry/pink. 16:05 Reassessment: Patient appears in no apparent distress at this time. Patient and/or em family updated on plan of care and expected duration. Pain level reassessed. Patient is alert, oriented x 3, equal unlabored respirations, skin warm/dry/pink. pt request some Tylenol for mild headache, provider notified, new medication orders received. 16:40 Reassessment: Patient appears in no apparent distress at this time. Patient and/or em family updated on plan of care and expected duration. Pain level reassessed. Patient is alert, oriented x 3, equal unlabored respirations, skin warm/dry/pink. will recheck BGL after completion of liter NS. 17:55 Reassessment: Patient appears in no apparent distress at this time. Patient and/or em family updated on plan of care and expected duration. Pain level reassessed. Patient is alert, oriented x 3, equal unlabored respirations, skin warm/dry/pink. rates pain 2/10, completion of liter NS, provider notified Patient states feeling better. Patient states symptoms have improved. Vital Signs: 14:12 BP 130 / 74; Pulse 59; Resp 18; Pulse Ox 100% on R/A; Weight 122.47 kg; Height 5 ft. 5 em in. (165.10 cm); Pain 5/10; 15:30 BP 117 / 66; Pulse 87; Resp 18; Pulse Ox 100% on R/A; Pain 5/10; em 16:39 BP 118 / 73; Pulse 87; Resp 16; Pulse Ox 98% on R/A; em 17:54 BP 107 / 72; Pulse 78; Resp 16; Pulse Ox 98% on R/A; Pain 2/10; em 14:12 Body Mass Index 44.93 (122.47 kg, 165.10 cm) em ED Course: 14:07 Patient arrived in ED. em 14:12 Arm band placed on. em 14:16 David Stone PA is PHCP. [facility] 14:16 Korey Scruggs MD is Attending Physician. [facility] 14:41 Triage completed. la1 14:41 X-ray completed. Portable x-ray completed in exam room. Patient tolerated procedure la2 well. 14:42 XRAY Chest (1 view) In Process Unspecified. EDMS 14:50 Missed attempt(s): 20 gauge in right forearm. mh5 14:51 Patient has correct armband on for positive identification. Placed in gown. Bed in low mh5 position. Call light in reach. Side rails up X 1. Warm blanket given. Pulse ox on. NIBP on. 15:00 Abhijit Gomez LVN is Primary Nurse. em 15:00 No provider procedures requiring assistance completed. Inserted saline lock: 20 gauge em in right antecubital area, using aseptic technique. Blood collected. 15:00 Initial lab(s) drawn, by in, sent to lab. em 15:18 EKG done, by ED staff, reviewed by David DE GUZMAN. 5 16:41 Urine --Ancillary (enter results) Sent. mh5 16:41 Urine Dipstick--Ancillary (enter results) Sent. 5 16:41 Urine collected: clean catch specimen, clear. 5 18:14 IV discontinued, intact, bleeding controlled, No redness/swelling at site. Pressure em dressing applied. Administered Medications: 16:16 Drug: Tylenol 650 mg Route: PO; em 17:30 Follow up: Response: No adverse reaction; Pain is decreased em 16:38 Drug: NS 0.9% 1000 ml Route: IV; Rate: 1 bolus; Site: right antecubital; em 18:16 Follow up: IV Status: Completed infusion; IV Intake: 1000ml em Point of Care Testing: Blood Glucose: 14:50 Blood Glucose: 203 mg/dL; mh5 17:54 Blood Glucose: 132 mg/dL; em Ranges: Intake: 18:16 IV: 1000ml; Total: 1000ml. em Outcome: 18:03 Discharge ordered by . luly 18:14 Discharged to home ambulatory. em 18:14 Condition: good 18:14 Discharge instructions given to patient, Instructed on discharge instructions, follow up and referral plans. Demonstrated understanding of instructions, follow-up care. 18:24 Patient left the ED. em Signatures: Dispatcher [employer] David Peña PA PA jmm Munoz, Edgar, SENIOR QUALITY METHODS SPECIALIST SENIOR QUALITY METHODS SPECIALIST em Joanna Shaikh RN RN [email or web address] Jm Cali RN RN la1 Birgit Mayer Ana Maria Shen
[2018-07-06 18:32] VITALS: O2SAT 98
[2018-07-06 18:34] VITALS: BP 107/72
[2018-07-06] MEDS ORDERED: METOCLOPRAMIDE 10 MG/2mL INJ ONE (20:24)
[2018-07-06] MEDS ORDERED: KETOROLAC 30 MG/ML INJ ONE (20:24)
[2018-07-06] MEDS ORDERED: NA CHLORIDE 0.9% 100 ML IV ONE (20:25)
--- NOTE | 2018-07-08 06:56 | EKG ---
Test Date: 2018-07-06 Test Time: 15:14:19 Underwear Cutter: TOM MEASUREMENT RESULTS: Intervals: Rate: 83 CT: 132 QRSD: 76 QT: 370 QTc: 434 Hollins: P: 29 CT: 132 QRS: 18 T: 14 INTERPRETIVE STATEMENTS: Normal sinus rhythm Normal ECG Compared to ECG 10/14/2017 06:28:44 No significant changes Electronically Signed On 07-08-18 06:51:38 CDT by Walter Rush
== END 2018-07-06 18:24 | disposition home or self-care (01) ==
LOC: ER 13:59
DX: R73.9 Hyperglycemia, unspecified (principal); I10 Essential (primary) hypertension; E11.9 Type 2 diabetes mellitus without complications
CPT/HCPCS: 36415; 71045; 80048; 80076; 81003; 81025; 82550; 82553; 82962; 83735; 83880; 84484; 85025; 85610; 85730; 93005; 96360; 96361; 99284; J2765; J7030

== ENCOUNTER 2018-11-13 17:27 | Emergency (ER) | payer SELFPAY ==
[2018-11-13 18:46] LABS: Absolute Lymphocytes (CBC) 4.1 K/uL (0.7-4.9); Absolute Monocytes 0.9 K/uL (0.1-1.3); Absolute Neutrophil 6.6 K/uL (1.8-8.0); Basophils % 0.8 % (0-1.3); Eosinophils % 1.2 % (0-4.4); Hematocrit 42.2 % (36.0-45.0); Lymphocytes % 34.4 % (15.3-44.8); MPV 9.3 fL (7.6-11.3); Monocytes % 7.5 % (3.3-12.3); RBC Red Blood Cell Count 4.71 M/uL (3.86-4.86)
[2018-11-13 18:49] LABS: Protime INR 1.05
[2018-11-13 19:06] LABS: ALT/SGPT 24 U/L (12-78); AST/SGOT 9 U/L (15-37); Albumin 3.5 g/dL (3.4-5.0); Alkaline Phosphatase 75 U/L (45-117); BUN Blood Urea Nitrogen 13 mg/dL (7-18); Bicarbonate 25 mmol/L (21-32); Bilirubin Direct 0.2 mg/dL (0-0.2); Bilirubin Total 0.6 mg/dL (0.2-1.0); Glucose Level 181 mg/dL (74-106); Lipase 86 U/L (73-393); Magnesium 1.6 mg/dL (1.8-2.4); Potassium 4.3 mmol/L (3.5-5.1); Protein, Total 7.8 g/dL (6.4-8.2); Sodium Level 135 mmol/L (136-145); Troponin I < 0.02 ng/mL (0.0-0.045)
[2018-11-13 19:12] LABS: Urine Blood NEGATIVE (NEG); Urine Glucose 2+ (NEG); Urine Protein NEGATIVE (NEG); Urine pH 5.5 (5.0-7.0)
--- NOTE | 2018-11-13 21:05 | RAD REPORT ---
EXAM DESCRIPTION: CT - Abdomen Pelvis W Contrast - 11/13/2018 8:42 pm CLINICAL HISTORY: Abdominal pain, nausea and vomiting, history of recent bladder infection COMPARISON: January 2018 CT study TECHNIQUE: Biphasic, helical CT imaging of the abdomen and pelvis was performed following 100 ml non -ionic IV contrast. Oral contrast was given. All CT scans are performed using dose optimization technique as appropriate and may include automated exposure control or mA/KV adjustment according to patient size. FINDINGS: No suspicious findings in the lung bases. Liver is borderline fatty infiltrated. No focal liver lesions seen. Spleen and pancreas show no suspi cious findings. Cholecystectomy clips are present. No biliary tree dilatation. Symmetric renal function is seen with no hydronephrosis or suspicious renal mass. No pyelonephritis o r acute parenchymal process. No bladder wall thickening or edema. No CT findings for cystitis. No adr enal abnormalities. No dilated bowel loops or bowel wall thickening. No appendicitis or acute GI process. No free air, fr ee fluid or inflammatory stranding. No hernia, mass or bulky lymphadenopathy. Uterus and ovaries sh ow no suspicious finding. No suspicious bony findings. IMPRESSION: No CT findings of cystitis or acute bladder process. No renal or ureteral acute finding. Liver is borderline fatty infiltrated. Gallbladder is absent with normal biliary tree.
[2018-11-13] MEDS ORDERED: MAGNESIUM SULFATE 1 gm IVPB 1 GM/100 ML BAG IV ONE (21:52)
--- NOTE | 2018-11-13 21:54 | EDPHYS ---
Physician Documentation [facility] Name: Pamela Bassett Age: 48 yrs Sex: Female : 1970 Arrival Date: 11/13/2018 Time: 17:30 Bed 19 Private MD: Lavon Hightower ED Physician Harjinder Pool HPI: 11/13 18:20 This 48 yrs old Female presents to ER via Ambulatory with complaints of cp Nausea/Vomiting. 18:20 The patient presents to the emergency department with nausea, that is moderate, cp vomiting, that is intermittent, described as bilious. Onset: The symptoms/episode began/occurred 3 day(s) ago. Possible causes: antibiotics, Bactrim for UTI. 18:20 Associated signs and symptoms: Pertinent positives: abdominal pain, diarrhea, fever, cp black colored stool, Pertinent negatives: constipation, active vomiting. Severity of symptoms: in the emergency department the symptoms are unchanged. The patient has been recently seen by a physician: Dr. Hightower and referred to ED for evaluation. 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 - Social history:: Smoking status: Patient/guardian denies using tobacco. - Ebola Screening: : No symptoms or risks identified at this time. ROS: 18:25 Constitutional: Negative for body aches, chills, fever, poor PO intake. cp 18:25 Eyes: Negative for injury, pain, redness, and discharge. cp 18:25 ENT: Negative for drainage from ear(s), ear pain, sore throat, difficulty swallowing, cp difficulty handling secretions. 18:25 Cardiovascular: Negative for chest pain, edema, palpitations. 18:25 Respiratory: Negative for cough, shortness of breath, wheezing. 18:25 Abdomen/GI: Positive for abdominal pain, vomiting, diarrhea, black/tarry stool, Negative for constipation. 18:25 Back: Positive for pain at rest, of the low back area, Negative for injury or acute deformity. 18:25 : Negative for pelvic pain, burning with urination, vaginal bleeding, vaginal discharge. 18:25 Skin: Negative for cellulitis, rash. 18:25 Neuro: Negative for altered mental status, dizziness, headache, weakness. 18:25 All other systems are negative. Exam: 18:30 Constitutional: The patient appears in no acute distress, alert, awake, cp non-diaphoretic, non-toxic, well developed, well nourished, obese. 18:30 Head/Face: Normocephalic, atraumatic. cp 18:30 Eyes: Pupils equal round and reactive to light, extra-ocular motions intact. Lids and cp lashes normal. Conjunctiva and sclera are non-icteric and not injected. Cornea within normal limits. Periorbital areas with no swelling, redness, or edema. ENT: Nares patent. No nasal discharge, no septal abnormalities noted. Tympanic membranes are normal and external auditory canals are clear. Oropharynx with no redness, swelling, or masses, exudates, or evidence of obstruction, uvula midline. Mucous membranes moist. Chest/axilla: Normal chest wall appearance and motion. Nontender with no deformity. No lesions are appreciated. 18:30 Cardiovascular: Rate: normal, Rhythm: regular, Edema: is not appreciated, JVD: is not appreciated. 18:30 Respiratory: the patient does not display signs of respiratory distress, Respirations: cp normal, no use of accessory muscles, no retractions, no splinting, no tachypnea, labored breathing, is not present, Breath sounds: are clear throughout, no decreased breath sounds, no stridor, no wheezing. 18:30 Abdomen/GI: Inspection: obese Bowel sounds: active, all quadrants, Palpation: soft, in all quadrants, moderate abdominal tenderness, in the right lower quadrant. 18:30 Back: pain, that is moderate, of the low back area, ROM is normal. 18:30 Skin: cellulitis, is not appreciated, no rash present. 19:35 ECG was reviewed by the Attending Physician. cp Vital Signs: 17:48 BP 135 / 81; Pulse 90; Resp 18; Temp 98.9; Pulse Ox 99% on R/A; Weight 134.26 kg; ca1 Height 5 ft. 5 in. (165.10 cm); Pain 8/10; 18:40 BP 160 / 80; Pulse 81; Resp 14; Pulse Ox 99% ; bp 19:10 BP 141 / 77; Pulse 85; Resp 17; Temp 98.4; Pulse Ox 100% ; Pain 6/10; rr5 20:00 BP 150 / 90; Pulse 80; Resp 17; Pulse Ox 98% ; rr5 21:00 BP 156 / 91; Pulse 81; Resp 17; Pulse Ox 99% ; rr5 22:00 BP 140 / 72; Pulse 80; Resp 17; Pulse Ox 99% ; rr5 22:30 BP 143 / 76; Pulse 79; Resp 16; Pulse Ox 98% ; rr5 17:48 Body Mass Index 49.26 (134.26 kg, 165.10 cm) ca1 MDM: 18:01 Patient medically screened. cp 19:00 Differential diagnosis: Nonspecific abd pain, gastritis, appendicitis, diverticulitis, cp pyelonephritis, kidney stone. 21:50 Data reviewed: vital signs, nurses notes, lab test result(s), EKG, radiologic studies, cp CT scan. 21:50 Test interpretation: by ED physician or midlevel provider: ECG. cp 21:52 Counseling: I had a detailed discussion with the patient and/or guardian regarding: the cp historical points, exam findings, and any diagnostic results supporting the discharge/admit diagnosis, lab results, radiology results, to return to the emergency department if symptoms worsen or persist or if there are any questions or concerns that arise at home. 21:52 Response to treatment: the patient's symptoms have markedly improved after treatment. cp Special discussion: Based on the patient's Hx, exam, and Dx evaluation, there is no indication for emergent surgery or inpatient Tx. It is understood by the patient/guardian that if the Sx's persist or worsen they need to return immediately for re-evaluation. ED course: VSS. CT abdomen/pelvis negative for acute findings. Nausea and pain improved. Will discharge to home for continued monitoring. 11/13 18:14 Order name: Basic Metabolic Panel; Complete Time: 21:13 cp 11/13 21:48 Interpretation: NA 135; GLUC 181. cp 11/13 18:14 Order name: CBC with Diff; Complete Time: 19:01 cp 11/13 21:14 Interpretation: Normal except: WBC 11.8. cp 11/13 18:14 Order name: Creatinine for Radiology; Complete Time: 21:13 cp 11/13 18:14 Order name: Hepatic Function; Complete Time: 21:13 cp 11/13 18:14 Order name: Lipase; Complete Time: 21:13 cp 11/13 18:14 Order name: Troponin I; Complete Time: 21:13 cp 11/13 18:14 Order name: IV Saline Lock; Complete Time: 18:39 cp 11/13 18:14 Order name: Magnesium; Complete Time: 21:13 cp 11/13 21:48 Interpretation: Abnormal: MG 1.6. cp 11/13 18:14 Order name: EKG; Complete Time: 18:14 cp 11/13 18:14 Order name: PT-INR; Complete Time: 19:01 cp 11/13 18:40 Order name: Urine Dipstick--Ancillary (enter results) [facility] 11/13 18:40 Order name: Urine --Ancillary (enter results) [facility] 11/13 19:02 Order name: CT Abd/Pelvis - W/Contrast: give oral contrast; Complete Time: 21:13 cp 11/13 18:14 Order name: Labs collected and sent; Complete Time: 18:39 cp 11/13 18:14 Order name: Urine Dipstick-Ancillary (obtain specimen); Complete Time: 18:39 cp 11/13 18:14 Order name: Urine Test (obtain specimen); Complete Time: 18:39 cp 11/13 18:14 Order name: EKG - Nurse/Tech; Complete Time: 19:51 cp 11/13 21:49 Order name: PO challenge; Complete Time: 21:57 cp EC:35 Rate is 80 beats/min. Rhythm is regular. MA interval is normal. QRS interval is normal. cp QT interval is normal. T waves are Flattened in leads III, aVF. Interpreted by me. Reviewed by me. Administered Medications: 21:56 Drug: Magnesium Sulfate 1 grams Route: IVPB; Infused Over: 30 mins; Site: right forearm;rr5 22:25 Follow up: Response: No adverse reaction; IV Status: Completed infusion; IV Intake: rr5 100ml Disposition: 11/13/18 21:53 Discharged to Home. Impression: Lower abdominal pain, unspecified, Other chest pain. - Condition is Stable. - Discharge Instructions: Abdominal Pain, Adult, Nonspecific Chest Pain. - Prescriptions for Zofran 4 mg Oral Tablet - take 1 tablet by ORAL route every 12 hours As needed; 20 tablet. Bentyl 20 mg Oral Tablet - take 2 tablets by ORAL route every 6 hours As needed; 30 tablet. - Medication Reconciliation Form, Thank You Letter, Antibiotic Education, Prescription Opioid Use form. - Follow up: Lavon Hightower MD; When: 1 - 2 days; Reason: Recheck today's complaints. - Problem is new. - Symptoms have improved. Addendum: 11/16/2018 07:15 Co-signature as Attending Physician, Harjinder Pool MD. r n Signatures: Dispatcher [employer] EDMS Harjinder Pool MD MD rn Jason Freeman PA PA cp Roque, Raymond, RN RN rr5 Aracely Landin RN RN ca1 Corrections: (The following items were deleted from the chart) 11/13 22:44 21:53 11/13/2018 21:53 Discharged to Home. Impression: Lower abdominal pain, rr5 unspecified; Other chest pain. Condition is Stable. Forms are Medication Reconciliation Form, Thank You Letter, Antibiotic Education, Prescription Opioid Use. Follow up: Lavon Hightower; When: 1 - 2 days; Reason: Recheck today's complaints. Problem is new. Symptoms have improved. cp 22:55 22:44 11/13/2018 21:53 Discharged to Home. Impression: Lower abdominal pain, rr5 unspecified; Other chest pain. Condition is Stable. Discharge Instructions: Abdominal Pain, Adult, Nonspecific Chest Pain. Prescriptions for Zofran 4 mg Oral Tablet - take 1 tablet by ORAL route every 12 hours As needed; 20 tablet, Bentyl 20 mg Oral Tablet - take 2 tablets by ORAL route every 6 hours As needed; 30 tablet. and Forms are Medication Reconciliation Form, Thank You Letter, Antibiotic Education, Prescription Opioid Use. Follow up: Lavon Hightower; When: 1 - 2 days; Reason: Recheck today's complaints. Problem is new. Symptoms have improved. rr5
--- NOTE | 2018-11-13 21:54 | ER ---
Nurse's Notes [facility] Name: Pamela Bassett Age: 48 yrs Sex: Female : 1970 Arrival Date: 11/13/2018 Time: 17:30 Bed 19 Private MD: Lavon Hightower Diagnosis: Lower abdominal pain, unspecified;Other chest pain Presentation: 11/13 17:38 Presenting complaint: Patient states: went to the doctor last week on and was ca1 prescribed Sulfamethoxazole for bladder infection. Started to experience N/V, abdl pain, low back pain, chest pain since Sunday. Called the Doctor this morning regarding N/V, and was instructed to visit the ER. Transition of care: patient was not received from another setting of care. Onset of symptoms was November 10, 2018. Risk Assessment: Do you want to hurt yourself or someone else? Patient reports no desire to harm self or others. Initial Sepsis Screen: Does the patient meet any 2 criteria? No. Patient's initial sepsis screen is negative. Does the patient have a suspected source of infection? No. Patient's initial sepsis screen is negative. Care prior to arrival: None. 17:38 Method Of Arrival: Ambulatory ca1 17:38 Acuity: [place] 3 ca1 Triage Assessment: 17:55 General: Appears in no apparent distress. comfortable, Behavior is cooperative, bp appropriate for age, anxious. Pain: Denies pain. GI: Reports nausea, vomiting. 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 - Social history:: Smoking status: Patient/guardian denies using tobacco. - Ebola Screening: : No symptoms or risks identified at this time. Screenin:57 Abuse screen: Denies threats or abuse. Denies injuries from another. Nutritional bp screening: No deficits noted. Tuberculosis screening: No symptoms or risk factors identified. Fall Risk None identified. Assessment: 17:56 General: Appears in no apparent distress. comfortable, obese, Behavior is cooperative, bp appropriate for age, anxious. Pain: Denies pain. Neuro: Level of Consciousness is awake, alert, obeys commands, Oriented to person, place, time, situation, Appropriate for age. Cardiovascular: No deficits noted. Respiratory: Airway is patent Respiratory effort is even, unlabored, Respiratory pattern is regular, symmetrical. GI: Abdomen is non-distended, obese, Bowel sounds present X 4 quads. : No signs and/or symptoms were reported regarding the genitourinary system. EENT: No deficits noted. Derm: No deficits noted. Musculoskeletal: Circulation, motion, and sensation intact. Range of motion: intact in all extremities. 19:10 General: Appears in no apparent distress. comfortable, Behavior is calm, cooperative, rr5 appropriate for age. Pain: Complains of pain in lower back Pain radiates to abdomen Pain currently is 6 out of 10 on a pain scale. Quality of pain is described as aching, Pain began gradually, Is intermittent. 19:10 Reassessment: oral contrast consumed. CT staff aware. Neuro: Level of Consciousness is rr5 awake, alert, obeys commands, Oriented to person, place, time, situation, Appropriate for age. Cardiovascular: Capillary refill < 3 seconds Patient's skin is warm and dry. Respiratory: Airway is patent Respiratory effort is even, unlabored, Respiratory pattern is regular, symmetrical. GI: Abdomen is non-distended, obese, Bowel sounds present X 4 quads. : Reports having treatment for infection. EENT: No deficits noted. Derm: No signs and/or symptoms reported regarding the dermatologic system. Musculoskeletal: Circulation, motion, and sensation intact. Capillary refill < 3 seconds, Range of motion: intact in all extremities. 20:30 Reassessment: Patient appears in no apparent distress at this time. No changes from rr5 previously documented assessment. sent for CT scan. 21:07 Reassessment: Patient appears in no apparent distress at this time. Patient is alert, rr5 oriented x 3, equal unlabored respirations, skin warm/dry/pink. no complaints made, awaiting for Ct report. 22:00 Reassessment: Patient appears in no apparent distress at this time. Patient is alert, rr5 oriented x 3, equal unlabored respirations, skin warm/dry/pink. magnesium infusion started then for discharge. 22:41 Reassessment: Patient appears in no apparent distress at this time. No changes from rr5 previously documented assessment. discharge instruction instruction given and explained, without complaints made. Vital Signs: 17:48 BP 135 / 81; Pulse 90; Resp 18; Temp 98.9; Pulse Ox 99% on R/A; Weight 134.26 kg; ca1 Height 5 ft. 5 in. (165.10 cm); Pain 8/10; 18:40 BP 160 / 80; Pulse 81; Resp 14; Pulse Ox 99% ; bp 19:10 BP 141 / 77; Pulse 85; Resp 17; Temp 98.4; Pulse Ox 100% ; Pain 6/10; rr5 20:00 BP 150 / 90; Pulse 80; Resp 17; Pulse Ox 98% ; rr5 21:00 BP 156 / 91; Pulse 81; Resp 17; Pulse Ox 99% ; rr5 22:00 BP 140 / 72; Pulse 80; Resp 17; Pulse Ox 99% ; rr5 22:30 BP 143 / 76; Pulse 79; Resp 16; Pulse Ox 98% ; rr5 17:48 Body Mass Index 49.26 (134.26 kg, 165.10 cm) ca1 ED Course: 17:30 Patient arrived in ED. dl4 17:30 Lavon Hightower MD is Private Physician. dl4 17:44 Triage completed. ca1 17:48 Arm band placed on left wrist. ca1 17:53 Rikki Chan, DONTE is Primary Nurse. bp 17:57 Patient has correct armband on for positive identification. Bed in low position. Call bp light in reach. Side rails up X2. 18:01 Jason Freeman PA is PHCP. cp 18:01 Harjinder Pool MD is Attending Physician. cp 18:30 Inserted saline lock: 22 gauge in right forearm, using aseptic technique. Blood bp collected. 19:00 Served as a rn neonatal icu during rectal exam. 5 20:11 Primary Nurse role handed off by Rikki Chan, RN 20:38 Patient moved to [place] via wheelchair. nj 20:42 CT completed. Patient tolerated procedure well. Patient moved back from [place]. nj 20:43 CT Abd/Pelvis - W/Contrast: give oral contrast In Process Unspecified. EDMS 21:02 Avila Armando, RN is Primary Nurse. rr5 21:52 Lavon Hightower MD is Referral Physician. cp 22:43 IV discontinued, intact, bleeding controlled, No redness/swelling at site. Pressure rr5 dressing applied. Administered Medications: 21:56 Drug: Magnesium Sulfate 1 grams Route: IVPB; Infused Over: 30 mins; Site: right forearm;rr5 22:25 Follow up: Response: No adverse reaction; IV Status: Completed infusion; IV Intake: rr5 100ml Intake: 22:25 IV: 100ml; Total: 100ml. rr5 Outcome: 21:53 Discharge ordered by MD. cp 22:43 Discharged to home ambulatory. rr5 22:43 Condition: stable 22:43 Discharge instructions given to patient, Instructed on discharge instructions, follow up and referral plans. medication usage, Demonstrated understanding of instructions, follow-up care, medications, Prescriptions given X 2. 22:55 Patient left the ED. rr5 Signatures: Dispatcher [employer] EDMS Jason Freeman PA PA Nii Hilario Maria 5 Rikki Chan RN RN Avila Armando, RN RN rr5 Timo Hinojosa 4 Nimo Rutledge gm, Cheryl, RN RN ca1 Corrections: (The following items were deleted from the chart) 17:50 17:38 Presenting complaint: Patient states: went to the doctor last week on ca1 and was prescribed Sulfamethoxazole for bladder infection. Started to experience N/V, abdl pain since Sunday. Called the Doctor this morning regarding N/V, and was instructed to visit the ER. ca1
[2018-11-13 23:24] VITALS: TEMP 98.4
[2018-11-13 23:29] VITALS: BP 143/76; O2SAT 98
--- NOTE | 2018-11-14 10:45 | EKG ---
Test Date: 2018-11-13 Test Time: 19:29:53 Coverstitch Elastic Attacher: JASEN MEASUREMENT RESULTS: Intervals: Rate: 80 AL: 130 QRSD: 74 QT: 370 QTc: 426 [place]: P: 18 AL: 130 QRS: 41 T: 13 INTERPRETIVE STATEMENTS: Normal sinus rhythm Cannot rule out Anterior infarct, age undetermined Abnormal ECG Compared to ECG 07/06/2018 15:14:19 Myocardial infarct finding now present Electronically Signed On 11-14-18 10:42:55 STAFF ANESTHETIST by Walter Rush
== END 2018-11-13 22:55 | disposition home or self-care (01) ==
LOC: ER 17:27
DX: R07.89 Other chest pain (principal); I10 Essential (primary) hypertension; E11.9 Type 2 diabetes mellitus without complications
CPT/HCPCS: 36415; 74177; 80048; 80076; 81003; 81025; 83690; 83735; 84484; 85025; 85610; 93005; 96365; 99284; J3475; Q9967

== ENCOUNTER 2019-03-31 10:37 | Emergency (ER) | payer BC, SELFPAY ==
--- OUTSIDE RECORDS SUMMARY | 2019-03-31 10:44 | XMS REPORT ---
:1970 [facility] Address [address] [place] [address] Dr. Ruth [address] [place] [id number] Care Team Providers Name Role Phone Unavailable Unavailable Unavailable Problems This patient has no known problems. Allergies, Adverse Reactions, Alerts This patient has no known allergies or adverse reactions. Medications This patient has no known medications.
[2019-03-31 12:04] LABS: Absolute Lymphocytes (CBC) 3.6 K/uL (0.7-4.9); Absolute Monocytes 0.7 K/uL (0.1-1.3); Basophils % 0.8 % (0-1.3); Eosinophils % 1.5 % (0-4.4); Hematocrit 42.4 % (36.0-45.0); Lymphocytes % 34.3 % (15.3-44.8); MPV 9.5 fL (7.6-11.3); Monocytes % 6.6 % (3.3-12.3); RBC Red Blood Cell Count 4.74 M/uL (3.86-4.86)
[2019-03-31] MEDS ORDERED: METOCLOPRAMIDE 10 MG/2mL INJ ONE (12:05)
[2019-03-31] MEDS ORDERED: NA CHLORIDE 0.9% 1,000 ML ONE (12:05)
[2019-03-31 12:09] LABS: Protime INR 1.01
--- NOTE | 2019-03-31 12:25 | RAD REPORT ---
EXAM DESCRIPTION: CT - Head Brain Wo Cont - 03/31/2019 12:06 pm CLINICAL HISTORY: Syncope COMPARISON: None. TECHNIQUE: Computed axial tomography of the head was obtained. IV contrast was not requested. All CT scans are performed using dose optimization technique as appropriate and may include automated exposure control or mA/KV adjustment according to patient size. FINDINGS: An intracranial bleed is not seen . The ventricles are normal in caliber. No extra-axial fluid collection is noted. Fluid within the sinuses/ mastoids is not seen. IMPRESSION: No acute intracranial abnormality is seen. If patient's symptoms persist MRI of the bra in would be recommended.
[2019-03-31 12:53] LABS: ALT/SGPT 31 U/L (12-78); AST/SGOT 20 U/L (15-37); Albumin 3.7 g/dL (3.4-5.0); Alkaline Phosphatase 80 U/L (45-117); BUN Blood Urea Nitrogen 14 mg/dL (7-18); Bicarbonate 24 mmol/L (21-32); Bilirubin Direct < 0.1 mg/dL (0-0.2); Bilirubin Total 0.6 mg/dL (0.2-1.0); Glucose Level 217 mg/dL (74-106); Magnesium 1.9 mg/dL (1.8-2.4); NT PRO-BNP 113 pg/mL (<125); Potassium 4.6 mmol/L (3.5-5.1); Sodium Level 137 mmol/L (136-145); Troponin (Emerg Dept Use Only) < 0.02 ng/mL (0.0-0.045)
--- NOTE | 2019-03-31 12:58 | RAD REPORT ---
EXAM DESCRIPTION: Alycia Single View03/31/2019 12:47 pm CLINICAL HISTORY: Chest pain COMPARISON: June 2018 FINDINGS: The lungs appear clear of acute infiltrate. The heart is normal size IMPRESSION: No acute abnormalities displayed
--- NOTE | 2019-03-31 13:11 | EKG ---
Test Date: 2019-03-31 Test Time: 11:13:53 Senior Environmental Practice Leader: JORDY MEASUREMENT RESULTS: Intervals: Rate: 73 TN: 126 QRSD: 76 QT: 390 QTc: 429 [place]: P: 24 TN: 126 QRS: 31 T: 25 INTERPRETIVE STATEMENTS: Normal sinus rhythm normal ECG Compared to ECG 11/13/2018 19:29:53 minimal criteria for anterior infarct are no longer present Electronically Signed On 03-31-19 13:11:09 CDT by Manpreet Gonsales
--- NOTE | 2019-03-31 14:02 | EDPHYS ---
Physician Documentation [facility] Name: Pamela Bassett Age: 48 yrs Sex: Female : 1970 Arrival Date: 03/31/2019 Time: 10:42 Bed 17 Private MD: ED Physician Tim Dunlap HPI: 03/31 11:29 This 48 yrs old Female presents to ER via Ambulatory with complaints of jmm Syncope. 11:29 The patient has experienced syncope. jmm 11:29 Onset: The symptoms/episode began/occurred acutely, this morning, at 08:00. jmm 11:29 Associated injury: The patient did not suffer any apparent associated injury. jmm Associated signs and symptoms: Pertinent positives: headache, Pertinent negatives: chest pain, shortness of breath. This is a 48 year old female with a history of PCOS that presents to the ED after a syncopal episode which occurred at approx 0800 today. patient states she awoke with a headache this morning and went to the bathroom to vomit. Patient states after vomiting she woke up on the ground. Patient denies chest pain, denies shortness of breath. . 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 - Social history:: Smoking status: Patient uses tobacco products. - Ebola Screening: : No symptoms or risks identified at this time. ROS: 11:29 Constitutional: Negative for fever, chills, and weight loss, Cardiovascular: Negative jmm for chest pain, palpitations, and edema, Respiratory: Negative for shortness of breath, cough, wheezing, and pleuritic chest pain. 11:29 Neuro: Positive for headache, syncope. 11:29 All other systems are negative. Exam: 11:29 Head/Face: atraumatic. Eyes: EOMI, no conjunctival erythema appreciated ENT: Moist jmm Mucus Membranes Neck: Trachea midline, Supple Chest/axilla: Normal chest wall appearance and motion. 11:29 Constitutional: The patient appears in no acute distress, alert, awake. 11:29 Cardiovascular: Rate: normal, Rhythm: regular, Pulses: no pulse deficits are appreciated. 11:29 Respiratory: the patient does not display signs of respiratory distress, Respirations: normal, Breath sounds: are clear throughout. 11:29 Abdomen/GI: Inspection: abdomen appears normal, Bowel sounds: normal, Rectal exam: is unremarkable. 11:29 Musculoskeletal/extremity: ROM: intact in all extremities. 11:29 Skin: Appearance: Color: normal in color. 11:29 Neuro: Orientation: is normal, Mentation: is normal, Memory: is normal. 11:29 Psych: Behavior/mood is pleasant, cooperative. 13:53 ECG was reviewed by the Attending Physician. [facility] Vital Signs: 10:48 BP 153 / 73; Pulse 76; Resp 16; Temp 98.6; Pulse Ox 98% on R/A; Weight 136.08 kg; aj Height 5 ft. 5 in. (165.10 cm); 13:42 BP 136 / 76; Pulse 81; Resp 19; Pulse Ox 99% ; sv 14:14 BP 134 / 70; Pulse 77; Resp 18; Pulse Ox 99% ; sv 10:48 Body Mass Index 49.92 (136.08 kg, 165.10 cm) aj MDM: 11:29 Patient medically screened. [facility] 13:52 Data reviewed: vital signs, nurses notes. Counseling: I had a detailed discussion with [facility] the patient and/or guardian regarding: the historical points, exam findings, and any diagnostic results supporting the discharge/admit diagnosis, lab results, radiology results, the need for outpatient follow up, to return to the emergency department if symptoms worsen or persist or if there are any questions or concerns that arise at home. 13:52 ED course: Patient is alert and non toxic in appearance in the ED. Lungs CTA. PERC [facility] negative. Symptoms appear to be do to vasovagal episode. Patient has been asymptomatic in the ED. Patient advised to follow up with pcp or cardiology for further evaluation. Patient otherwise given strict return precautions. patient understood and agrees with the plan of care. . 03/31 13:02 Order name: CBC with Automated Diff EDMS 03/31 13:02 Order name: Protime (+INR) EDMS 03/31 13:03 Order name: Basic Metabolic Panel; Complete Time: 13:21 EDMS 03/31 13:03 Order name: Liver (Hepatic) Function; Complete Time: 13:21 EDMS 03/31 13:03 Order name: Troponin (Emerg Dept Use Only); Complete Time: 13:21 EDMS 03/31 13:03 Order name: NT PRO-BNP; Complete Time: 13:21 EDMS 03/31 13:03 Order name: Magnesium; Complete Time: 13:21 EDMS 03/31 11:30 Order name: XRAY Chest (1 view) [facility] 03/31 11:30 Order name: EKG; Complete Time: 13:05 [facility] 03/31 11:30 Order name: Cardiac monitoring; Complete Time: 11:31 [facility] 03/31 11:30 Order name: EKG - Nurse/Tech; Complete Time: 12:46 [facility] 03/31 11:30 Order name: IV Saline Lock; Complete Time: 12:46 [facility] 03/31 11:30 Order name: Labs collected and sent; Complete Time: 12:46 [facility] 03/31 11:30 Order name: O2 Per Protocol; Complete Time: 11:31 [facility] 03/31 11:30 Order name: O2 Sat Monitoring; Complete Time: 11:31 [facility] 03/31 11:30 Order name: CT Head Brain wo Cont [facility] 03/31 11:32 Order name: Urine Dipstick-Ancillary (obtain specimen); Complete Time: 13:46 [facility] 03/31 13:07 Order name: Head Brain Wo Cont; Complete Time: 13:21 [facility] 03/31 13:11 Order name: Chest Single View; Complete Time: 13:21 EDMS EC:53 Rate is 73 beats/min. Rhythm is regular. QRS Edmond is Normal. MA interval is normal. QRS jmm interval is normal. QT interval is normal. T waves are Normal. No ST changes noted. Administered Medications: 12:15 Drug: NS 0.9% 1000 ml Route: IV; Rate: 1 bolus; Site: right forearm; sv 13:30 Follow up: Response: No adverse reaction; IV Status: Completed infusion; IV Intake: sv 1000ml 12:16 Drug: Reglan 10 mg Route: IVP; Site: right forearm; sv 13:30 Follow up: Response: No adverse reaction sv Disposition: 21:48 Co-signature as Attending Physician, Tim Dunlap MD available for consultation at [facility] all times . Disposition: 03/31/19 14:00 Discharged to Home. Impression: Syncope and collapse. - Condition is Stable. - Discharge Instructions: Syncope, Vasovagal Syncope, Adult. - Medication Reconciliation Form, Thank You Letter, Antibiotic Education, Prescription Opioid Use form. - Work release form (03/31/19 14:17). sv - Follow up: Private Physician; When: 2 - 3 days; Reason: Recheck today's complaints, Continuance of care, Re-evaluation by your physician. Signatures: Dispatcher [employer] Africa Lee RN RN sv Myers, Amanda, RN RN aj Mickail, Joel, PA PA jmm Singer, Phillip, MD MD ps1 Corrections: (The following items were deleted from the chart) 14:14 14:00 03/31/2019 14:00 Discharged to Home. Impression: Syncope and collapse. Condition sv is Stable. Forms are Medication Reconciliation Form, Thank You Letter, Antibiotic Education, Prescription Opioid Use. Follow up: Private Physician; When: 2 - 3 days; Reason: Recheck today's complaints, Continuance of care, Re-evaluation by your physician. luly
--- NOTE | 2019-03-31 14:02 | ER ---
Nurse's Notes [facility] Name: Pamela Bassett Age: 48 yrs Sex: Female : 1970 Arrival Date: 03/31/2019 Time: 10:42 Bed 17 Private MD: Diagnosis: Syncope and collapse Presentation: 03/31 10:43 Presenting complaint: Patient states: "I think I passed out but I am not sure. I woke aj up this morning and went to the bathroom at 8am, then I must have gone back to my room because I woke up on my bedroom floor." Patient reports she is unsure if she rolled out of bed but reports she woke up on bedroom floor. Transition of care: patient was not received from another setting of care. Onset of symptoms was March 31, 2019. Risk Assessment: Do you want to hurt yourself or someone else? Patient reports no desire to harm self or others. Initial Sepsis Screen: Does the patient meet any 2 criteria? No. Patient's initial sepsis screen is negative. Does the patient have a suspected source of infection? No. Patient's initial sepsis screen is negative. Note Patient ambulated to triage while speaking on cell phone with no difficulty. Delay in triage as patient continues to speak on phone. Care prior to arrival: None. 10:43 Method Of Arrival: Ambulatory aj 10:43 Acuity: ITALO 4 aj Triage Assessment: 10:48 General: Appears in no apparent distress. comfortable, Behavior is calm, cooperative, aj appropriate for age. Pain: Denies pain. Neuro: Level of Consciousness is awake, alert, obeys commands, Oriented to person, place, time, situation, Appropriate for age. Respiratory: Airway is patent Respiratory effort is even, unlabored, Respiratory pattern is regular, symmetrical. Derm: Skin is intact, is healthy with good turgor, Skin is pink, warm \\T\\ dry. normal. 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 - Social history:: Smoking status: Patient uses tobacco products. - Ebola Screening: : No symptoms or risks identified at this time. Screenin:09 Abuse screen: Denies threats or abuse. Denies injuries from another. Nutritional sv screening: No deficits noted. Tuberculosis screening: No symptoms or risk factors identified. Fall Risk None identified. Assessment: 11:30 General: Appears in no apparent distress. uncomfortable, obese, well developed, sv Behavior is calm, cooperative, appropriate for age. Pain: Denies pain. Neuro: Level of Consciousness is awake, alert, obeys commands, Oriented to person, place, time, situation, Moves all extremities. Full function Gait is steady, Speech is normal, Facial symmetry appears normal, Reports a syncopal episode. Respiratory: Respiratory effort is even, unlabored, Respiratory pattern is regular, symmetrical. Derm: Skin is pink, warm \\T\\ dry. 13:42 Reassessment: Patient appears in no apparent distress at this time. No changes from sv previously documented assessment. Patient and/or family updated on plan of care and expected duration. Pain level reassessed. Patient is alert, oriented x 3, equal unlabored respirations, skin warm/dry/pink. 14:14 Reassessment: Patient appears in no apparent distress at this time. No changes from sv previously documented assessment. Patient and/or family updated on plan of care and expected duration. Pain level reassessed. Patient is alert, oriented x 3, equal unlabored respirations, skin warm/dry/pink. Vital Signs: 10:48 BP 153 / 73; Pulse 76; Resp 16; Temp 98.6; Pulse Ox 98% on R/A; Weight 136.08 kg; aj Height 5 ft. 5 in. (165.10 cm); 13:42 BP 136 / 76; Pulse 81; Resp 19; Pulse Ox 99% ; sv 14:14 BP 134 / 70; Pulse 77; Resp 18; Pulse Ox 99% ; sv 10:48 Body Mass Index 49.92 (136.08 kg, 165.10 cm) aj ED Course: 10:42 Patient arrived in ED. tw3 10:47 Triage completed. aj 10:48 Arm band placed on left wrist. Patient placed in waiting room. aj 11:08 Africa Olivarez, DONTE is Primary Nurse. sv 11:09 David Stone PA is PHCP. [facility] 11:09 Tim Dunlap MD is Attending Physician. [facility] 11:09 Patient has correct armband on for positive identification. Bed in low position. Door sv closed. Head of bed elevated. 11:30 Initial lab(s) drawn, by nh, sent to lab. Inserted saline lock: 20 gauge in right sv forearm, using aseptic technique. Blood collected. Flushed right forearm with 5 ml normal saline. 12:[address] via wheelchair. jg6 12:42 X-ray completed. Portable x-ray completed in exam room. Patient tolerated procedure jb2 well. 13:09 Head Brain Wo Cont In Process Unspecified. EDMS 13:13 Chest Single View In Process Unspecified. EDMS 13:17 Basic Metabolic Panel Sent. sv 13:17 CBC with Diff Sent. sv 13:17 LFT's Sent. sv 13:17 Magnesium Sent. sv 13:17 NT PRO-BNP Sent. sv 13:17 PT-INR Sent. sv 13:17 Troponin (emerg Dept Use Only) Sent. sv 13:17 XRAY Chest (1 view) Sent. sv 13:43 Urine collected: clean catch specimen, clear. sv 13:54 CT Head Brain wo Cont Sent. sv 13:56 Awaiting re-evaluation by ER provider. sv 14:14 No provider procedures requiring assistance completed. IV discontinued, intact, sv bleeding controlled, No redness/swelling at site. Pressure dressing applied. Administered Medications: 12:15 Drug: NS 0.9% 1000 ml Route: IV; Rate: 1 bolus; Site: right forearm; sv 13:30 Follow up: Response: No adverse reaction; IV Status: Completed infusion; IV Intake: sv 1000ml 12:16 Drug: Reglan 10 mg Route: IVP; Site: right forearm; sv 13:30 Follow up: Response: No adverse reaction sv Intake: 13:30 IV: 1000ml; Total: 1000ml. sv Outcome: 14:00 Discharge ordered by . luly 14:14 Patient left the ED. sv 14:14 Discharged to home ambulatory. sv 14:14 Condition: stable 14:14 Discharge instructions given to patient, Instructed on discharge instructions, follow up and referral plans. Demonstrated understanding of instructions, follow-up care. Signatures: Dispatcher [employer] Africa Lee, Sintia Omalley RN, RN RN aj Mickail, Joel, PA PA jmm Buechter, Jesse jbEmely Montgomery Jessica jg6
[2019-03-31 19:41] VITALS: TEMP 98.6
[2019-03-31 19:43] VITALS: O2SAT 99
[2019-03-31 19:54] VITALS: BP 134/70
== END 2019-03-31 14:14 | disposition home or self-care (01) ==
LOC: ER 10:37
DX: R55 Syncope and collapse (principal); Z72.0 Tobacco use
CPT/HCPCS: 36415; 70450; 71045; 80048; 80076; 83735; 83880; 84484; 85025; 85610; 93005; 96361; 96374; 99284; J2765; J7030

== ENCOUNTER 2019-11-04 12:12 | Emergency (ER) | payer BC, OTHER ==
--- OUTSIDE RECORDS SUMMARY | 2019-11-04 12:22 | XMS REPORT ---
:1970 [facility] Address [address] [place] [address] [address] [place] [address] Care Team Providers Name Role Phone Unavailable Unavailable Unavailable Problems This patient has no known problems. Allergies, Adverse Reactions, Alerts This patient has no known allergies or adverse reactions. Medications This patient has no known medications.
--- NOTE | 2019-11-04 12:57 | RAD REPORT ---
EXAM DESCRIPTION: CT - Head Brain Wo Cont - 11/04/2019 12:44 pm CLINICAL HISTORY: HEADACHE Fall, head injury, headache COMPARISON: Head Brain Wo Cont dated 03/31/2019 TECHNIQUE: All CT scans are performed using dose optimization technique as appropriate and may inclu de automated exposure control or mA/KV adjustment according to patient size. FINDINGS: No intracranial hemorrhage, hydrocephalus or extra-axial fluid collection.No areas of brai n edema or evidence of midline shift. The paranasal sinuses and mastoids are clear. The calvarium is intact. IMPRESSION: No acute intracranial abnormality.
--- NOTE | 2019-11-04 13:07 | ER ---
Nurse's Notes [facility] Name: Pamela Bassett Age: 49 yrs Sex: Female : 1970 Arrival Date: 11/04/2019 Time: 12:14 Bed 25 Private MD: Lavon Hightower Diagnosis: Post concussion syndrome Presentation: 11/04 12:30 Presenting complaint: Patient states: i fell from a standing position last week at work mg2 seen at [facility] ED and diagnosed her with concussion. now for the past 2 days she was having severe headache. Transition of care: patient was not received from another setting of care. Onset of symptoms was November 02, 2019. Risk Assessment: Do you want to hurt yourself or someone else? Patient reports no desire to harm self or others. Initial Sepsis Screen: Does the patient meet any 2 criteria? No. Patient's initial sepsis screen is negative. Does the patient have a suspected source of infection? No. Patient's initial sepsis screen is negative. Care prior to arrival: None. 12:30 Method Of Arrival: Ambulatory mg2 12:30 Acuity: ITALO 3 mg2 Triage Assessment: 12:33 Headache History: Denies prior headaches. General: Appears in no apparent distress. mg2 comfortable, Behavior is calm, appropriate for age. Pain: Complains of pain in head Pain does not radiate. Pain currently is 8 out of 10 on a pain scale. Quality of pain is described as aching, Pain began 2-3 days ago. Also complains of no other associated symptoms. EENT: No signs and/or symptoms were reported regarding the EENT system. Neuro: Reports headache. Cardiovascular: Capillary refill < 3 seconds Patient's skin is warm and dry. Respiratory: Airway is patent Respiratory effort is even, unlabored, Respiratory pattern is regular, symmetrical. GI: No signs and/or symptoms were reported involving the gastrointestinal system. : No signs and/or symptoms were reported regarding the genitourinary system. Derm: Skin is intact, is healthy with good turgor, Skin is pink, warm \T\ dry. normal. Musculoskeletal: Circulation, motion, and sensation intact. Capillary refill < 3 seconds. 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 - Social history:: Smoking status: unknown. - Ebola Screening: : No symptoms or risks identified at this time. Screenin:34 Abuse screen: Denies threats or abuse. Denies injuries from another. Nutritional mg2 screening: No deficits noted. Tuberculosis screening: No symptoms or risk factors identified. Fall Risk Fall in past 12 months (25 points). Assessment: 12:34 Reassessment: see triage assessment. mg2 13:18 Reassessment: Patient appears in no apparent distress at this time. Patient is alert, ca1 oriented x 3, equal unlabored respirations, skin warm/dry/pink. Pain:. Vital Signs: 12:32 BP 150 / 76; Pulse 98; Resp 18; Pulse Ox 97% on R/A; mg2 13:18 BP 101 / 55; Pulse 84; Resp 17 S; Pulse Ox 98% ; ca1 ED Course: 12:14 Patient arrived in ED. mr 12:14 Lavon Hightower MD is Private Physician. mr 12:26 Tim Dunlap MD is Attending Physician. ps1 12:29 Aracely Landin RN is Primary Nurse. ca1 12:32 Triage completed. mg2 12:34 Arm band placed on. mg2 12:34 Patient has correct armband on for positive identification. mg2 12:34 No provider procedures requiring assistance completed. Patient did not have IV access mg2 during this emergency room visit. 12:47 CT Head Brain wo Cont In Process Unspecified. EDMS 13:06 Lavon Hightower MD is Referral Physician. ps1 Administered Medications: 13:10 Not Given (Patient Refused): Reglan 10 mg PO once ca1 Outcome: 13:07 Discharge ordered by MD. ps1 13:21 Discharged to home ambulatory. ca1 13:21 Condition: stable 13:21 Discharge instructions given to patient, Instructed on discharge instructions, follow up and referral plans. medication usage, Demonstrated understanding of instructions, follow-up care, medications, Prescriptions given X 2. 13:21 Patient left the ED. ca1 Signatures: Dispatcher [employer] EDIL Marcela Wright mr Tim Dunlap MD MD ps1 Yunior Rodriguez RN RN mg2 Acob, Aracely, RN RN ca1
--- NOTE | 2019-11-04 13:07 | EDPHYS ---
Physician Documentation [facility] Name: Pamela Bassett Age: 49 yrs Sex: Female : 1970 Arrival Date: 11/04/2019 Time: 12:14 Bed 25 Private MD: Lavon Hightower ED Physician Tim Dunlap HPI: 11/04 13:00 This 49 yrs old Female presents to ER via Ambulatory with complaints of ps1 Headache. 13:00 Patient has had a headache since falling a week ago while at work. 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 She was seen and evaluated at [facility]. No imaging and was told that she has symptoms of concussion. Normal exam at the time. She states that she had slurred speech. Normal phonation during my exam today. Additionally states that she has been somnolent for last three days and staying in bed. No repetitive nausea and vomiting or ataxia. . 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 - Social history:: Smoking status: unknown. - Ebola Screening: : No symptoms or risks identified at this time. ROS: 13:00 Constitutional: Negative for fever, chills, and weight loss, Eyes: Negative for injury, ps1 pain, redness, and discharge, Cardiovascular: Negative for chest pain, palpitations, and edema, Respiratory: Negative for shortness of breath, cough, wheezing, and pleuritic chest pain, Abdomen/GI: Negative for abdominal pain, nausea, vomiting, diarrhea, and constipation, MS/Extremity: Negative for injury and deformity, Skin: Negative for injury, rash, and discoloration, Psych: Negative for depression, anxiety, suicide ideation, homicidal ideation, and hallucinations. 13:00 Neuro: Positive for headache, somnolence. Exam: 13:00 Constitutional: This is a well developed, well nourished patient who is awake, alert, ps1 and in no acute distress. Head/Face: Normocephalic, atraumatic. Eyes: Pupils equal round and reactive to light, extra-ocular motions intact. Lids and lashes normal. Conjunctiva and sclera are non-icteric and not injected. Chest/axilla: Normal chest wall appearance and motion. Nontender with no deformity. No lesions are appreciated. Cardiovascular: Regular rate and rhythm. No gallops, murmurs, or rubs. Normal PMI, no JVD. No pulse deficits. Respiratory: Lungs have equal breath sounds bilaterally, clear to auscultation and percussion. No rales, rhonchi or wheezes noted. No increased work of breathing, no retractions or nasal flaring. Abdomen/GI: Soft, non-tender, with normal bowel sounds. No distension or tympany. No guarding or rebound. No evidence of tenderness throughout. Skin: Warm, dry with normal turgor. Normal color with no rashes, no lesions, and no evidence of cellulitis. MS/ Extremity: Pulses equal, no cyanosis. Neurovascular intact. Full, normal range of motion. Neuro: Awake and alert, GCS 15, oriented to person, place, time, and situation. Cranial nerves II-XII grossly intact. Sensory grossly intact. Vital Signs: 12:32 BP 150 / 76; Pulse 98; Resp 18; Pulse Ox 97% on R/A; mg2 13:18 BP 101 / 55; Pulse 84; Resp 17 S; Pulse Ox 98% ; ca1 MDM: 12:49 Patient medically screened. ps1 13:09 Data reviewed: vital signs, nurses notes, radiologic studies, CT scan, and as a result, ps1 I will discharge patient. Counseling: I had a detailed discussion with the patient and/or guardian regarding: the historical points, exam findings, and any diagnostic results supporting the discharge/admit diagnosis, radiology results, the need for outpatient follow up. 11/04 12:36 Order name: CT Head Brain wo Cont; Complete Time: 13:06 mg2 Administered Medications: 13:10 Not Given (Patient Refused): Reglan 10 mg PO once ca1 Disposition: 11/04/19 13:07 Discharged to Home. Impression: Post concussion syndrome. - Condition is Stable. - Discharge Instructions: Post-Concussion Syndrome. - Prescriptions for Reglan 10 mg Oral Tablet - take 1 tablet by ORAL route every 6 hours take 30 minutes before meals and at bedtime; 20 tablet. Zofran 4 mg Oral Tablet - take 1 tablet by ORAL route every 12 hours As needed; 20 tablet. - Medication Reconciliation Form, Thank You Letter, Antibiotic Education, Prescription Opioid Use, Work release form form. - Follow up: Lavon Hightower MD; When: 48 Hours; Reason: Further diagnostic work-up, Recheck today's complaints, Continuance of care, Re-evaluation by your physician. Follow up: Emergency Department; When: As needed; Reason: Worsening of condition. - Problem is an ongoing problem. - Symptoms are unchanged. Signatures: Dispatcher [employer] EDMS Tim Dunlap MD MD ps1 Yunior Rodriguez RN RN mg2 Aracely Landin RN RN ca1 Corrections: (The following items were deleted from the chart) 13:21 13:07 11/04/2019 13:07 Discharged to Home. Impression: Post concussion syndrome. ca1 Condition is Stable. Forms are Medication Reconciliation Form, Thank You Letter, Antibiotic Education, Prescription Opioid Use. Follow up: Lavon Hightower; When: 48 Hours; Reason: Further diagnostic work-up, Recheck today's complaints, Continuance of care, Re-evaluation by your physician. Follow up: Emergency Department; When: As needed; Reason: Worsening of condition. Problem is an ongoing problem. Symptoms are unchanged. ps1
[2019-11-04] MEDS ORDERED: METOCLOPRAMIDE 5 MG TAB ONE (13:10)
[2019-11-04 13:30] VITALS: BP 101/55; O2SAT 98
== END 2019-11-04 13:21 | disposition home or self-care (01) ==
LOC: ER 12:12
DX: F07.81 Postconcussional syndrome (principal); I10 Essential (primary) hypertension; E11.9 Type 2 diabetes mellitus without complications; W01.0XXA Fall on same level from slipping, tripping and stumbling without subsequent striking against object, initial encounter; Y93.89 Activity, other specified; Y92.89 Other specified places as the place of occurrence of the external cause; Y99.8 Other external cause status
CPT/HCPCS: 70450; 99283

== ENCOUNTER 2021-02-03 15:55 | Emergency (ER) | payer OTHER, SELFPAY ==
--- OUTSIDE RECORDS SUMMARY | 2021-02-03 15:57 | XMS REPORT | Continuity of Care Document ---
:1970 Author Organization [facility] t Address [address] [place] [address] Care Team Providers Name Role Phone Doctor Unassigned, Name Attending Clinician Unavailable Lab, Fam Pob I Attending Clinician Unavailable Problems This patient has no known problems. Allergies, Adverse Reactions, Alerts This patient has no known allergies or adverse reactions. Medications This patient has no known medications. Procedures This patient has no known procedures. Encounters Start End Encounter Admission Attending Care Care Encounter Source Date/Time Date/Time Type Type Clinicians Facility Department ID 2020-06-10 2020-06-10 Orders Doctor ANGELA [id number] 00:00:00 00:00:00 Only Unassigned, VIKTORIYA [id number] [place] [facility] [id number] 2020-05-25 2020-05-25 Laboratory Lab, [facility] [id number] 12:50:48 13:10:48 Only Fam Pob I Health [id number] [place] [id number] [place] [id number] [address] Results This patient has no known results.
--- NOTE | 2021-02-03 20:07 | RAD REPORT ---
EXAM DESCRIPTION: CT - Head Brain Wo Cont - 02/03/2021 7:44 pm CLINICAL HISTORY: Headache COMPARISON: 2019 TECHNIQUE: Computed axial tomography of the head was obtained. IV contrast was not requested. All CT scans are performed using dose optimization technique as appropriate and may include automated exposure control or mA/KV adjustment according to patient size. FINDINGS: An intracranial bleed is not seen . The ventricles are normal in caliber. No extra-axial fluid collection is noted. Mild low-density areas within periventricular, deep and subcortical white matter likely represent isc hemic changes secondary to small vessel disease. Fluid within the left maxillary sinus IMPRESSION: No acute intracranial abnormality is seen. If patient's symptoms persist MRI of the bra in would be recommended. Small amount of fluid within the left maxillary sinus may indicate acute sinusitis
[2021-02-03 20:38] LABS: SARS-COV-2 RT PCR NEGATIVE (NEGATIVE)
--- NOTE | 2021-02-03 20:57 | ER ---
Nurse's Notes [facility] Name: Pamela Bassett Age: 50 yrs Sex: Female : 1970 Arrival Date: 02/03/2021 Time: 15:58 Bed 25 Private MD: Lavon Hightower Diagnosis: Headache;Acute upper respiratory infection, unspecified Presentation: 02/03 16:04 Chief complaint: Patient states: Had J\T\J covid vaccine 01/25/21. States she has had a COLE ll1 since last night with nausea. States her PCP told her to come get evaluated because that vaccine was recalled. No fever. Coronavirus screen: Client denies travel out of the [place] in the last 14 days. chills, fatigue, headache, nausea, Client presents with at least one sign or symptom that may indicate coronavirus-19. Standard/surgical mask placed on the client. Ebola Screen: Patient denies travel to an Ebola-affected area in the 21 days before illness onset. Initial Sepsis Screen: Does the patient meet any 2 criteria? No. Patient's initial sepsis screen is negative. Does the patient have a suspected source of infection? Yes: Other: COLE. Risk Assessment: Do you want to hurt yourself or someone else? Patient reports no desire to harm self or others. Onset of symptoms was February 02, 2021. 16:04 Method Of Arrival: Ambulatory ll1 16:04 Acuity: ITALO 3 ll1 Historical: - Allergies: 16:08 No Known Allergies; ll1 - PMHx: 16:08 PCOS; PUD; Irritable bowel syndrome; Hypertension; Diabetes - NIDDM; Migraines; ll1 shingles; Stomach Ulcers; - PSHx: 16:08 Cholecystectomy; Tonsillectomy; ll1 - Immunization history:: Client reports receiving the 1st dose of the Covid vaccine, J\T\J Flu vaccine is up to date. - Social history:: Smoking status: Patient denies any tobacco usage or history of. - Family history:: not pertinent. - Hospitalizations: : No recent hospitalization is reported. Screenin:38 Abuse screen: Denies threats or abuse. Nutritional screening: No deficits noted. bb Tuberculosis screening: No symptoms or risk factors identified. Fall Risk None identified. Assessment: 19:38 General: Appears in no apparent distress. uncomfortable, Behavior is calm, cooperative. bb Pain: Complains of pain in head. Neuro: Level of Consciousness is awake, alert, obeys commands, Oriented to person, place, time, situation. Cardiovascular: No deficits noted. Respiratory: Respiratory effort is even, unlabored, Respiratory pattern is regular. GI: No signs and/or symptoms were reported involving the gastrointestinal system. Derm: Skin is pink, warm \T\ dry. Musculoskeletal: Circulation, motion, and sensation intact. 19:39 Reassessment: pt to CT scan via wheelchair accompanied by technology education teacher. bb 20:36 Reassessment: Patient is alert, oriented x 3, equal unlabored respirations, skin bb warm/dry/pink. awaiting diagnostic results. 21:09 Reassessment: Patient is alert, oriented x 3, equal unlabored respirations, skin bb warm/dry/pink. pt verbalized understanding of and agrees to plan of care discharge instructions given pt ambulated with steady gait to exit. Vital Signs: 16:04 BP 152 / 97; Pulse 90; Resp 17; Temp 97.1; Pulse Ox 98% ; Weight 132.9 kg; Height 5 ft. ll1 5 in. (165.10 cm); Pain 8/10; 20:36 BP 104 / 45; Pulse 81; Resp 16 S; Pulse Ox 98% on R/A; bb 21:09 BP 133 / 76; Pulse 85; Resp 16 S; Pulse Ox 99% on R/A; bb 16:04 Body Mass Index 48.76 (132.90 kg, 165.10 cm) ll1 Lyons Coma Score: 20:54 Eye Response: spontaneous(4). Verbal Response: oriented(5). Motor Response: obeys rn commands(6). Total: 15. ED Course: 15:58 Patient arrived in ED. mr 15:58 Lavon Hightower MD is Private Physician. mr 16:08 Triage completed. ll1 16:09 Arm band placed on. ll1 19:19 Harjinder Pool MD is Attending Physician. rn 19:38 Belle Fernández RN is Primary Nurse. bb 19:38 Patient has correct armband on for positive identification. Bed in low position. Call bb light in reach. 19:40 Flu and/or RSV swab sent to lab. COVID swab. bb 21:10 No provider procedures requiring assistance completed. Patient did not have IV access bb during this emergency room visit. Administered Medications: No medications were administered Outcome: 20:57 Discharge ordered by . rn 21:10 Discharged to home ambulatory. bb 21:10 Condition: stable 21:10 Discharge instructions given to patient, Instructed on discharge instructions, follow up and referral plans. Demonstrated understanding of instructions, follow-up care. 21:10 Patient left the ED. bb Signatures: Marcela Wright Brenda RN RN bb Harjinedr Pool MD MD rn Lewis, Lynsay RN RN ll1
--- NOTE | 2021-02-03 20:57 | EDPHYS ---
Physician Documentation [facility] Name: Pamela Bassett Age: 50 yrs Sex: Female : 1970 Arrival Date: 02/03/2021 Time: 15:58 Bed 25 Private MD: Lavon Hightower ED Physician Harjinder Pool HPI: 02/03 19:44 This 50 yrs old Female presents to ER via Ambulatory with complaints of rn Headache. 19:44 The patient complains of pain to the forehead. The patient describes the headache as rn aching. Onset: The symptoms/episode began/occurred yesterday. Associated signs and symptoms: Pertinent negatives: altered mental status, fever, neck stiffness, paresthesias, Photophobia rash, sinus congestion, sinus tenderness, vision changes, vision loss, vomiting, weakness, vertigo. Severity of symptoms: At its worst the pain was mild, in the emergency department the pain is unchanged. The symptoms are alleviated by nothing. the symptoms are aggravated by nothing. The patient has not experienced similar symptoms in the past. The patient has been recently seen by a physician:. Reports received jonathon and jonathon vaccine 1 week ago, began with headache yesterday, no trauma, no fever, does have fatigue and congestion, reports colleague with "bad cough". No focal neuro complaint. No vision changes. . Historical: - Allergies: 16:08 No Known Allergies; ll1 - PMHx: 16:08 PCOS; PUD; Irritable bowel syndrome; Hypertension; Diabetes - NIDDM; Migraines; ll1 shingles; Stomach Ulcers; - PSHx: 16:08 Cholecystectomy; Tonsillectomy; ll1 - Immunization history:: Client reports receiving the 1st dose of the Covid vaccine, J\\T\\J Flu vaccine is up to date. - Social history:: Smoking status: Patient denies any tobacco usage or history of. - Family history:: not pertinent. - Hospitalizations: : No recent hospitalization is reported. ROS: 19:44 Constitutional: Negative for fever, chills, and weight loss, Eyes: Negative for injury, rn pain, redness, and discharge, Neck: Negative for injury, pain, and swelling, Cardiovascular: Negative for chest pain, palpitations, and edema, Respiratory: Negative for shortness of breath, wheezing, and pleuritic chest pain, Abdomen/GI: Negative for abdominal pain, nausea, vomiting, diarrhea, and constipation, Back: Negative for injury and pain, MS/Extremity: Negative for injury and deformity, Skin: Negative for injury, rash, and discoloration, Neuro: + headache, no focla weakness or numbness Exam: 19:44 Constitutional: This is a well developed, well nourished patient who is awake, alert, rn and in no acute distress. Head/Face: Normocephalic, atraumatic. Eyes: Pupils equal round and reactive, extra-ocular motions intact. Cardiovascular: Regular rate and rhythm. No pulse deficits. Respiratory: No increased work of breathing, no retractions or nasal flaring. Skin: Warm, dry, no cyanosis MS/ Extremity: Pulses equal, no cyanosis. Neuro: Awake and alert, GCS 15, oriented to person, place, time, and situation. Cranial nerves II-XII grossly intact. Motor strength 5/5 in all extremities. Sensory grossly intact. Cerebellar exam normal. Vital Signs: 16:04 BP 152 / 97; Pulse 90; Resp 17; Temp 97.1; Pulse Ox 98% ; Weight 132.9 kg; Height 5 ft. ll1 5 in. (165.10 cm); Pain 8/10; 20:36 BP 104 / 45; Pulse 81; Resp 16 S; Pulse Ox 98% on R/A; bb 21:09 BP 133 / 76; Pulse 85; Resp 16 S; Pulse Ox 99% on R/A; bb 16:04 Body Mass Index 48.76 (132.90 kg, 165.10 cm) ll1 Jan Coma Score: 20:54 Eye Response: spontaneous(4). Verbal Response: oriented(5). Motor Response: obeys rn commands(6). Total: 15. MDM: 19:19 Patient medically screened. rn 20:54 Differential diagnosis: migraine, tension headache, vasomotor headache, sinus rn thrombosis, post vaccine adverse effect. Data reviewed: vital signs, nurses notes, lab test result(s), radiologic studies, CT scan, and as a result, I will discharge patient. Counseling: I had a detailed discussion with the patient and/or guardian regarding: the historical points, exam findings, and any diagnostic results supporting the discharge/admit diagnosis, lab results, radiology results, the need for outpatient follow up, to return to the emergency department if symptoms worsen or persist or if there are any questions or concerns that arise at home. Special discussion: I discussed with the patient/guardian in detail that at this point there is no indication for admission to the hospital. It is understood, however, that if the symptoms persist or worsen the patient needs to return immediately for re-evaluation. ED course: CT head neg, flu/covid neg, most likely either adverse effect of vaccine or other viral illness. . 02/03 19:28 Order name: COVID-19 : Document "Date of Symptom Onset" if Symptomatic. rn 02/03 19:28 Order name: Flu rn 02/03 19:28 Order name: CT Head Brain wo Cont rn 02/03 19:54 Order name: CORONAVIRUS EDMS 02/03 19:54 Order name: Influenza Screen (A EDMS 02/03 20:38 Order name: COVID-19/FLU A+B; Complete Time: 20:54 EDMS 02/03 20:08 Order name: CT; Complete Time: 20:54 EDMS Administered Medications: No medications were administered Disposition: 02/03/21 20:57 Discharged to Home. Impression: Headache, Acute upper respiratory infection, unspecified. - Condition is Stable. - Discharge Instructions: General Headache Without Cause, Viral Respiratory Infection. - Work release form, Medication Reconciliation Form, Thank You Letter, Antibiotic Education, Prescription Opioid Use form. - Follow up: Private Physician; When: As needed; Reason: Recheck today's complaints, Re-evaluation by your physician. - Problem is new. - Symptoms have improved. Signatures: Dispatcher [employer] Belle Lacey RN RN bb Nieto, Roman, MD MD rn Lewis, Lynsay, RN RN ll1 Corrections: (The following items were deleted from the chart) 21:10 20:57 02/03/2021 20:57 Discharged to Home. Impression: Headache; Acute upper bb respiratory infection, unspecified. Condition is Stable. Forms are Medication Reconciliation Form, Thank You Letter, Antibiotic Education, Prescription Opioid Use. Follow up: Private Physician; When: As needed; Reason: Recheck today's complaints, Re-evaluation by your physician. Problem is new. Symptoms have improved. rn
[2021-02-03 21:15] VITALS: TEMP 97.1
[2021-02-03 21:18] VITALS: BP 133/76; O2SAT 99
== END 2021-02-03 21:10 | disposition home or self-care (01) ==
LOC: ER 15:55
DX: J06.9 Acute upper respiratory infection, unspecified (principal); Z20.822 Contact with and (suspected) exposure to COVID-19; I10 Essential (primary) hypertension
CPT/HCPCS: 0240U; 70450; 99283

== ENCOUNTER 2022-12-18 09:22 | Emergency (ER) | payer OTHER ==
--- OUTSIDE RECORDS SUMMARY | 2022-12-18 09:27 | XMS REPORT | Continuity of Care Document ---
:1970 Author Organization [facility] t Address [address] [place] [address] Care Team Providers Name Role Phone OSIEL STALEY JR Primary Care Physician Unavailable Corky FITZPATRICK Attending Clinician Unavailable Corky Kothari Attending Clinician Doctor Unassigned, [place] Attending Clinician Unavailable LORI FOSTER Attending Clinician Unavailable Lab, Adc Fam Pob I Attending Clinician Unavailable Lori Menjivar Attending Clinician Corky FITZPATRICK Admitting Clinician Unavailable Payers Payer Name Policy Type Policy Number Effective Date Expiration Date S nam [facility] [id number] 2018 00:00:00 Problems Condition Condition Condition Status Onset Resolution Last Treating Co mments Source Name Details Category Date Date Treatment Clinician Date Rubella Rubella Disease Active Univers immune immune 02-24 ity of 00:00: [address] Hirsutism Hirsutism Disease Active Uni vers 02-23 ity of 00:00: [address] Diabetes- Diabetes- Disease Active Uni vers Type 2 Type 2 02-23 ity of 00:00: [address] Surveillan Surveillan Disease Active U nivers ce of ce of 02-23 [place] 00 [place] dical contracept contracept Br anch naya pill naya pill PCOS PCOS Disease Active Univers (polycysti (polycysti 5-05 it y of c ovarian c [place] syndrome[place] syndrome[place] 00 [facility] [place] Branch Morbid Morbid Disease Active Univers obesity obesity -05 ity of 00:00: [address] Allergies, Adverse Reactions, Alerts Allergy Allergy Status Severity Reaction(s) Onset Inactive Treating Comm ents Source Name Type Date Date Clinician NO KNOWN Drug Active Univers ALLERGIE Class ity of S [facility] Social History Social Habit Start Date Stop Date Quantity Comments Source History SDOH University o f Alcohol Frequency [facility] edical Branch History [facility] University o f Alcohol Std [place] [facility] Dr[facility] Branch History [facility] University o f Alcohol Binge [place] [facility] Branch Exposure to 2022-04-06 2022-04-16 Not sure [facility] SARS-CoV-2 00:00:00 16:27:00 [facility] (event) Branch Alcohol intake 2019-10-28 2019-10-28 Current drinker Unive rsity of 00:00:00 00:00:00 of alcohol [facility] (finding) [place] Alcohol Comment 2014-10-06 2014-10-06 occasional Universit y of 00:00:00 00:00:00 [facility] Tobacco use and 2013-02-13 2013-02-13 Never used Universit y of exposure 00:00:00 00:00:00 [facility] Sex [birth year] Universit y of 00:00:00 00:00:00 [facility] Smoking Status Start Date Stop Date Source Never smoker [facility] Medications Ordered Filled Start Stop Current Ordering Indication Dosage Frequency Signature Comments Components Source Medication Medication Date Date Medication? Clinician (SIG) Name Name dicyclomine No 20mg 20 mg, Uni vers (BENTYL) 04-16 Oral, ity of tablet 20 23:00: 22:08 ONCE, [place] mg [place] :00 dose, On Medical [place] 04/16/22 at 1800, Routine NaCl 0.9% No 1000mL at 999 Uni vers (NS) bolus 04-16 06-26 mL/hr, ity of infusion 22:45: 22:42 1,000 mL, Eric as 1,000 mL 00 :00 IV Medical Infusion, Branch ONCE, 1 dose, On 04/16/22 at 1745, STAT magnesium 2021- No 2g 2 g, IV Univ ers sulfate in 04-16 Piggyback, it y of water 2 22:45: 22:11 Administer Eric as gram/50 mL 00 :00 over 60 Medica l (4 %) Minutes, Branch infusion 2 ONCE, 1 g dose, On 04/16/22 at 1745, Routine iopamidol 2021- No [id number] 70mL 70 mL, U nivers (ISOVUE 04-16 Intravenou ity o f 370-500 mL) 22:30: 21:09 s, ONCE, 1 [place] injection 00 :00 dose, On Medica l 70 mL [place] 04/16/22 at 1730, Routine NaCl 0.9% 2021- No 1000mL at 999 Uni vers (NS) bolus 04-16 mL/hr, ity of infusion 22:00: 22:31 1,000 mL, Eric as 1,000 mL 00 :00 IV Medical Infusion, Branch ONCE, 1 dose, On 04/16/22 at 1700, STAT dicyclomine 0 Yes [id number] 20mg Take 1 Univers 20 mg 04-16 tablet by ity of tablet 00:00: mouth [address] [place] [address] (four) Medical times Branch daily. omeprazole 2020-0 Yes 40mg Take 40 mg U nivers 20 mg 1-07 by mouth ity of capsule 20:05: daily. [address] glipiZIDE 2020-0 Yes 20mg Take 20 mg Un jeanne 10 mg 1-07 by mouth ity of tablet 20:05: daily. [address] losartan 25 2020-0 Yes 25mg Take 25 mg Univers mg tablet 1-07 by mouth ity of 20:05: daily. [address] LOVASTATIN 2020-0 Yes Take by Univ ers ORAL 1-07 mouth. ity of 20:05: [address] omeprazole 2020-0 Yes 40mg Take 40 mg U nivers 20 mg 1-07 by mouth ity of capsule 20:05: daily. [address] glipiZIDE 2020-0 Yes 20mg Take 20 mg Un jeanne 10 mg 1-07 by mouth ity of tablet 20:05: daily. [address] losartan 25 2020-0 Yes 25mg Take 25 mg Univers mg tablet 1-07 by mouth ity of 20:05: daily. [address] LOVASTATIN 2020-0 Yes Take by Univ ers ORAL 1-07 mouth. ity of 20:05: [address] omeprazole 2020-0 Yes 40mg Take 40 mg U nivers 20 mg 1-07 by mouth ity of capsule 14:05: daily. [address] glipiZIDE 2019-0 Yes 20mg Take 20 mg Un jeanne 10 mg 1-07 by mouth ity of tablet 14:05: daily. [address] losartan 25 2019-0 Yes 25mg Take 25 mg Univers mg tablet 1-07 by mouth ity of 14:05: daily. [address] LOVASTATIN 2019-0 Yes Take by Univ ers ORAL 1-07 mouth. ity of 14:05: [address] omeprazole 2019-0 Yes 40mg Take 40 mg U nivers 20 mg 1-07 by mouth ity of capsule 14:05: daily. [address] glipiZIDE 2019-0 Yes 20mg Take 20 mg Un jeanne 10 mg 1-07 by mouth ity of tablet 14:05: daily. [address] losartan 25 2019-0 Yes 25mg Take 25 mg Univers mg tablet 1-07 by mouth ity of 14:05: daily. [address] LOVASTATIN 2019-0 Yes Take by Univ ers ORAL 1-07 mouth. ity of 14:05: [address] metformin 2013-10 Yes 500mg Take 1 Tab U nivers ER 2-09 by mouth 2 ity of (GLUCOPHAGE 00:00: (two) [place] -XR) 500 mg 00 times Medical 24 hr daily. Branch tablet metformin 2013-10 Yes 500mg Take 1 Tab U nivers ER 2-09 by mouth 2 ity of (GLUCOPHAGE 00:00: (two) [place] -XR) 500 mg 00 times Medical 24 hr daily. Branch tablet metformin 2013-10 Yes 500mg Take 1 Tab U nivers ER 2-09 by mouth 2 ity of (GLUCOPHAGE 00:00: (two) [place] -XR) 500 mg 00 times Medical 24 hr daily. Branch tablet metformin 2013-10 Yes 500mg Take 1 Tab U nivers ER 2-09 by mouth 2 ity of (GLUCOPHAGE 00:00: (two) [place] -XR) 500 mg 00 times Medical 24 hr daily. Branch tablet PHENTERMINE Yes Take by Uni vers HCL 5-05 mouth. ity of (PHENTERMIN 14:20: [place] E ORAL) 29 Medical Branch PHENTERMINE Yes Take by Uni vers HCL 5-05 mouth. ity of (PHENTERMIN 14:20: [place] E ORAL) 29 Medical Branch PHENTERMINE Yes Take by Uni vers HCL 5-05 mouth. ity of (PHENTERMIN 09:20: [place] E ORAL) 29 Medical Branch PHENTERMINE Yes Take by Uni vers HCL 5-05 mouth. ity of (PHENTERMIN 09:20: [place] E ORAL) [address] [place] [address] Immunizations Ordered Filled Immunization Date Status Comments Sour e Immunization Name Name MMR Booster 2012-01-22 Completed University of 00:00:00 [facility] MMR Booster 2012-01-22 Completed University of 00:00:00 [facility] MMR Booster 2012-01-22 Completed University of 00:00:00 [facility] MMR Booster 2012-01-22 Completed University of 00:00:00 [facility] TDAP 2011-12-28 Completed University of 00:00:00 [facility] TDAP 2011-12-28 Completed University of 00:00:00 [facility] TDAP 2011-12-28 Completed University of 00:00:00 [facility] TDAP 2011-12-28 Completed University of 00:00:00 [facility] Vital Signs Vital Name Observation Time Observation Value Comments Source Systolic blood 2022-04-16 22:00:00 135 mm[Hg] Univer sity of pressure [facility] Diastolic blood 2022-04-16 22:00:00 62 mm[Hg] Unive rsity of pressure [facility] Heart rate 2022-04-16 22:00:00 81 /min [facility] Respiratory rate 2022-04-16 22:00:00 16 /min [facility] Oxygen saturation in 2022-04-16 22:00:00 95 /min [facility] Arterial blood by [facility] Pulse oximetry [place] Body temperature 2022-04-16 20:21:[address] [facility] Body height 2022-04-16 20:21:00 165.1 cm [facility] Body weight 2022-04-16 20:21:00 140.615 kg [facility] BMI 2022-04-16 20:21:00 51.59 kg/m2 [facility] Procedures Procedure Date / Time Performing Clinician Source Performed URINALYSIS 2022-04-16 21:24:00 Corky Fitzpatrick [facility] CT ABDOMEN PELVIS W 2022-04-16 21:17:04 Corky Fitzpatrick [facility] CONTRAST [facility] CBC WITH DIFF 2022-04-16 20:41:00 Corky Fitzpatrick Paula [facility] LIPASE 2022-04-16 20:41:00 Corky Fitzpatrick [facility] MAGNESIUM 2022-04-16 20:41:00 oCrky Fitzpatrick Paula [facility] TROPONIN I 2022-04-16 20:41:00 Corky Fitzpatrick [facility] COMP. METABOLIC PANEL 2022-04-16 20:41:00 Corky Fitzpatrick [facility] ([id number]) [facility] NOTICE OF PRIVACY 2022-04-16 20:08:24 Doctor Unassigned, No [facility] PRACTICES Name Medical Branch CONSENT/REFUSAL FOR 2022-04-16 20:08:08 [facility]assigned[facility] [place] [facility] DIAGNOSIS AND TREATMENT Name [facility] AUTHORIZATION FOR 2020-06-10 05:01:00 Doctor Unassigned, No [facility] RELEASE OF PHI Name [facility] Encounters Start End Encounter Admission Attending Care Care Encounter Source Date/Time Date/Time Type Type Clinicians Facility Department ID 2022-04-16 2022-04-16 Emergency X Corky FITZPATRICK [facility] ERT [id number] Univers 15:22:00 17:55:00 ity of [facility] 2022-04-16 2022-04-16 Emergency Corky Fitzpatrick [facility] [id number] Univers 15:22:00 17:55:00 Paula BERMEO 350.1.13.10 i ty [facility] 4.2.7.2.686 [facility] [phone] [facility] 084 Branch 2022-04-16 2022-04-16 Orders Doctor ANGELA [id number] Univers 00:00:00 00:00:00 Only Unassigned, VIKTORIYA 350.1.13.10 ity of [place] [facility] 4.2.7.2.686 Eric as [phone] [address] 2020-06-10 2020-06-10 Orders Doctor ANGELA 1.2.840.114 [id number] 00:00:00 00:00:00 Only Unassigned, VIKTORIYA 350.1.13.10 [place] [facility] [phone] [facility] 2020-06-10 2020-06-10 Orders Doctor ANGELA 1.2.840.114 [id number] Univers 00:00:00 00:00:00 Only Unassigned, VIKTORIYA 350.1.13.10 ity of [place] [facility] 4.2.7.2.686 Eric as [phone] [address] 2020-05-25 2020-05-25 Outpatient R KRISTIN [facility] [id number] [facility] 13:20:00 13:20:00 LORI ity of [facility] 2020-05-25 2020-05-25 Laboratory Lab, [facility] [id number] 12:50:48 13:10:48 Only Fam Pob I Health 350.1.13.10 [place] 4.2.7.2.686 Professio [phone] [place] [address] Office [facility] One 2020-05-25 2020-05-25 Laboratory Lab, [facility] Fam Pob I [facility] 1.2. [id number] [id number] [facility] 12:50:48 13:10:48 Only L[facility] 350.1.13.10 ity of [place] 4.2.7.2.686 Eric as Professio [phone] Tn dical [address] Office Building One Results Test Description Test Time Test Comments Results Result Comments Source CBC WITH DIFF 2022-04-16 21:54:28 Test Item Value Reference Range Interpretation Comme nts WBC (test code = 6690-2) See_Comment [A utomated message] The system which ge nerated this result transmit melly reference range: 4.30 - 1 1.10 10*3/?L. The reference r benoit was not used to interpr et this result as normal/abnor mal. RBC (test code = 789-8) See_Comment [Au tomated message] The system which [employer] nerated this result transmit melly reference range: 3.93 - 5 .25 10*6/?L. The reference r benoit was not used to interpr et this result as normal/abnor mal. HGB (test code = 718-7) 15.3 g/dL 11.6-15.0 H HCT (test code = 4544-3) 45.5 % 35.7-45.2 H MCV (test code = 787-2) 87.0 fL 80.6-95.5 MCH (test code = 785-6) 29.3 pg 25.9-32.8 MCHC (test code = 786-4) 33.6 g/dL 31.6-35.1 RDW-SD (test code = 83199-4) 41.1 fL 39.0-49.9 RDW-CV (test code = 788-0) 12.9 % 12.0-15.5 PLT (test code = 777-3) See_Comment [Au tomated message] The system which [employer] nerated this result transmit melly reference range: 166 - 35 8 10*3/?L. The reference range was not used to interpret th is result as normal/abnormal . MPV (test code = 97052-9) 11.3 fL 9.5-12.9 NRBC/100 WBC (test code = See_Comment [ Automated message] The [id number]) system which [employer] nerated this result transmit melly reference range: 0.0 - 10 .0 /100 WBCs. The reference r benoit was not used to interpr et this result as normal/abnor mal. NRBC x10^3 (test code = <0.01 See_Comment [Au tomated message] The [id number]) system which [employer] nerated this result transmit melly reference range: 10*3/?L. The reference range was not u sed to interpret this result as normal/abnormal . GRAN MAT (NEUT) % (test code 45.8 % = 770-8) IMM GRAN % (test code = 0.20 % 2455934846) LYMPH % (test code = 736-9) 44.9 % MONO % (test code = 5905-5) 6.6 % EOS % (test code = 713-8) 1.7 % BASO % (test code = 706-2) 0.8 % GRAN MAT x10^3(ANC) (test 4.33 10*3/uL 1.88-7.09 code = 4356372826) IMM GRAN x10^3 (test code = <0.03 0.00-0.06 5523700737) LYMPH x10^3 (test code = 4.25 10*3/uL 1.32-3.29 H 731-0) MONO x10^3 (test code = 0.62 10*3/uL 0.33-0.92 742-7) EOS x10^3 (test code = 0.16 10*3/uL 0.03-0.39 711-2) BASO x10^3 (test code = 0.08 10*3/uL 0.01-0.07 H 704-7) Lab Interpretation (test Abnormal code = 17459-7) [facility] [id number] 21:12:50 Test Item Value Reference Interpretation Comments Range TROPONIN I (test 0.015 ng/mL See_Comment [Automated code = 8676955640) message] The system which generated this result transmitted reference range : <=0.034. The reference range was not used to interpret this result as normal/abnormal . CHELSIE (test code = Reference (Normal) CHELSIE) Range (defined by the 99th percentile reference limit): <= 0.034 ng/mL Note: Cardiac troponin begins to rise 3-4 hours after the onset of ischemia. Repeat in 4-6 hours if the sample was drawn within 3-4 hours of the onset of the symptom and found normal. Diagnosis of myocardial injury is made with acute changes in cTn concentrations with at least one serial sample above the 99th percentile upper reference limit (URL), taken together with the patient's clinical presentation. Biotin has been reported to cause a negative bias, interpret results relative to patient's use of biotin. Lab Interpretation Normal (test code = 19345-4) [facility]08 Test Item Value Reference Range Interpretation Comments MAGNESIUM (test code = 4298177747) 1.6 mg/dL 1.7-2.4 L Lab Interpretation (test code = Abnormal 10402-8) [facility] (95880)2022-04-16 21:01:48 Test Item Value Reference Range Interpretation Comments NA (test code = 136 mmol/L 135-145 3424152204) K (test code = 3.9 mmol/L 3.5-5.0 6133321881) CL (test code = 99 mmol/L 98-108 1803989544) CO2 TOTAL (test code = 24 mmol/L 23-31 8638923886) AGAP (test code = 2-16 9428507751) BUN (test code = 7 mg/dL 7-23 6092726014) GLUCOSE (test code = 300 mg/dL 70-110 H 1062882726) CREATININE (test code = 0.55 mg/dL 0.50-1.04 5012473178) TOTAL BILI (test code = 0.9 mg/dL 0.1-1.5 0468081147) CALCIUM (test code = 9.0 mg/dL 8.6-10.6 1723568546) T PROTEIN (test code = 6.9 g/dL 6.3-8.2 8849742041) ALBUMIN (test code = 4.0 g/dL 3.5-5.0 8129645105) ALK PHOS (test code = 88 U/L 34-122 8873734612) ALTv (test code = 18 U/L 5-35 1742-6) AST(SGOT) (test code = 21 U/L 13-40 2768275571) eGFR (test code = mL/min/1.73m2 9259646968) CHELSIE (test code = CHELSIE) Association of Glomerular Filtration Rate (GFR) and Staging of Kidney Disease* + --+ --+ ------+| GFR (mL/min/1.73 m2) ?| With Kidney Damage ?| ?Without Kidney Damage+ --------+ --------+ +| ?>90 ?| ?Stage one ?| ? Normal ?+ ---+ ---+ -------+| ?60-89 ?| ?Stage two ?| ? Decreased GFR ? + --+ --+ ------+| ?30-59 ?| ?Stage three ?| ? Stage three ? + --+ --+ ------+| ?15-29 ?| ?Stage four ? | ? Stage four ?+ ---+ ---+ -------+| ?<15 (or dialysis) ? ?| ?Stage five ? | ? Stage five ?+ ---+ ---+ -------+ *Each stage assumes the associated GFR level has been in effect for at least three months. ?Stages 1 to 5, with or without kidney disease, indicate chronic kidney disease. Notes: Determination of stages one and two (with eGFR >59mL/min/1.73 m2) requires estimation of kidney damage for at least three months as defined by structural or functional abnormalities of the kidney, manifested by either:Pathological abnormalities or Markers of kidney damage (including abnormalities in the composition of the blood or urine or abnormalities in imaging tests). Lab Interpretation Abnormal (test code = 98083-9) [facility] 21[facility]01:28 Test Item Value Reference Range Interpretation Comments LIPASE (test code = 2429016955) 55 U/L 0-220 Lab Interpretation (test code = Normal 67545-2) [facility]"
[2022-12-18] MEDS ORDERED: NA CHLORIDE 0.9% 1,000 ML ONE (09:55)
[2022-12-18] MEDS ORDERED: FAMOTIDINE 20 MG/2 ML VIAL IV ONE (09:55)
[2022-12-18] MEDS ORDERED: ONDANSETRON 4 MG/2 ML VIAL ONE (09:55)
[2022-12-18 10:40] LABS: Urine Blood Negative (Negative); Urine Glucose 3+ (Negative); Urine Protein Negative (Negative); Urine Specific Gravity 1.015 (1.005-1.030); Urine pH 5.5 (5.0-7.0)
[2022-12-18 10:49] LABS: Absolute Lymphocytes (CBC) 4.7 K/uL (0.7-4.9); Hematocrit 41.4 % (36.0-45.0); Lymphocytes % 37.8 % (15.3-44.8); MCV 89.1 fL (80-100); MPV 10.2 fL (7.6-11.3); RBC Red Blood Cell Count 4.64 M/uL (3.86-4.86)
[2022-12-18 10:55] LABS: Urine Bacteria <20 /HPF (<20); Urine Mucus Slight /HPF (None Seen); Urine RBC <5 /HPF (None Seen); Urine WBC Clump Rare /HPF (None Seen)
[2022-12-18 11:22] LABS: Albumin 3.4 g/dL (3.4-5.0); Bilirubin Total 0.6 mg/dL (0.2-1.0); Protein, Total 7.7 g/dL (6.4-8.2)
[2022-12-18 11:24] LABS: Potassium 4.4 mmol/L (3.5-5.1)
--- NOTE | 2022-12-18 12:01 | RAD REPORT ---
EXAM DESCRIPTION: CTAbdomen Pelvis W Contrast - 12/18/2022 11:54 am CLINICAL HISTORY: ABD PAIN COMPARISON: Abdomen Pelvis W Contrast dated 11/13/2018; Abdomen Pelvis W Contrast dated 02/18/2018 ; Abdomen Pelvis W Contrast dated 10/13/2017; Abdomen Pelvis W Contrast dated 09/17/2017 TECHNIQUE: CT of the abdomen and pelvis was performed. All CT scans are performed using dose optimization technique as appropriate and may include automated exposure control or mA/KV adjustment according to patient size. FINDINGS: Lower chest: No acute abnormality. Liver: Hepatic steatosis. Mildly nodular liver configuration. Biliary: Cholecystectomy Stomach: No significant focal abnormality. Duodenum: No significant focal abnormality. Pancreas: No significant abnormality. Spleen: No significant abnormality. Adrenal: No suspicious lesions. Kidney/ureter: No hydronephrosis. No renal calculi. Retroperitoneum: No retroperitoneal adenopathy. Vascular: No aneurysm. Bowel: No significant focal abnormality. Moderate colonic stool. No appendicitis . Peritoneum: No ascites or free air. Bladder: Grossly unremarkable. Reproductive: No adnexal masses. Bones: No acute fracture. Other: n/a IMPRESSION: No acute intra-abdominal or pelvic finding. Hepatic steatosis. Question early cirrhotic changes.
--- NOTE | 2022-12-18 12:04 | EDPHYS ---
Physician Documentation [facility] Name: Pamela Bassett Age: 52 yrs Sex: Female : 1970 Arrival Date: 12/18/2022 Time: 09:23 Bed 18 Private MD: Lavon Hightower ED Physician Bhupendra Villa HPI: 12/18 09:30 This 52 yrs old Female presents to ER via Ambulatory with complaints of Abdominal Pain, jh7 Diarrhea, Nausea. 09:30 Onset: The symptoms/episode began/occurred 1 week(s) ago. 52-year-old female reports jh7 abdominal discomfort, diarrhea, nausea, and malaise. Reports that her diabetes has been acting up and that her sugar was 357 last night and 229 this morning. History of cholecystectomy. Patient of Dr. Feliciano. Denies fever or any other complaints at this time.. 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 - Social history:: Smoking status: Patient denies any tobacco usage or history of. Patient/guardian denies using alcohol. ROS: 09:30 Constitutional: Negative for fever, chills, and weight loss, Eyes: Negative for injury, jh7 pain, redness, and discharge, ENT: Negative for injury, pain, and discharge, Neck: Negative for injury, pain, and swelling, Cardiovascular: Negative for chest pain, palpitations, and edema, Respiratory: Negative for shortness of breath, cough, wheezing, and pleuritic chest pain, Back: Negative for injury and pain, MS/Extremity: Negative for injury and deformity, Skin: Negative for injury, rash, and discoloration, Neuro: Negative for headache, weakness, numbness, tingling, and seizure. 09:30 Abdomen/GI: Positive for abdominal pain, nausea, vomiting, and diarrhea. 09:30 All other systems are negative. Exam: 09:30 Constitutional: This is a well developed, well nourished patient who is awake, alert, jh7 and in no acute distress. Head/Face: Normocephalic, atraumatic. Eyes: Pupils equal round and reactive to light, extra-ocular motions intact. Lids and lashes normal. Conjunctiva and sclera are non-icteric and not injected. Cornea within normal limits. Periorbital areas with no swelling, redness, or edema. ENT: Nares patent. No nasal discharge, no septal abnormalities noted. Tympanic membranes are normal and external auditory canals are clear. Oropharynx with no redness, swelling, or masses, exudates, or evidence of obstruction, uvula midline. Mucous membranes moist. Cardiovascular: Regular rate and rhythm with a normal S1 and S2. No gallops, murmurs, or rubs. Normal PMI, no JVD. No pulse deficits. Respiratory: Lungs have equal breath sounds bilaterally, clear to auscultation and percussion. No rales, rhonchi or wheezes noted. No increased work of breathing, no retractions or nasal flaring. Back: No spinal tenderness. No costovertebral tenderness. Full range of motion. Skin: Warm, dry with normal turgor. Normal color with no rashes, no lesions, and no evidence of cellulitis. MS/ Extremity: Pulses equal, no cyanosis. Neurovascular intact. Full, normal range of motion. Neuro: Awake and alert, GCS 15, oriented to person, place, time, and situation. Normal gait. 09:30 Abdomen/GI: Inspection: abdomen appears normal, Bowel sounds: normal, Palpation: soft, mild abdominal tenderness, in the right upper quadrant and left upper quadrant. Vital Signs: 09:29 BP 136 / 70; Pulse 82; Resp 18; Temp 97.8(O); Pulse Ox 97% on R/A; Weight 128.82 kg; ld1 Height 5 ft. 5 in. (165.10 cm); Pain 0/10; 11:00 BP 123 / 82; Pulse 63; Resp 18; Pulse Ox 100% on R/A; db 11:43 BP 102 / 83; Pulse 66; Resp 17; Pulse Ox 100% ; jh5 12:30 BP 139 / 83; Pulse 78; Resp 16; Pulse Ox 100% on R/A; db 09:29 Body Mass Index 47.26 (128.82 kg, 165.10 cm) ld1 MDM: 09:24 Patient medically screened. [facility] 12:10 Differential diagnosis: gastritis, gastroesophageal reflux disease, Viral [facility] gastroenteritis. Data reviewed: vital signs, nurses notes, lab test result(s), radiologic studies, CT scan. I considered the following discharge prescriptions or medication management in the emergency department Medications were administered in the Emergency Department. See MAR. Care significantly affected by the following chronic conditions: Diabetes, Hypertension. Counseling: I had a detailed discussion with the patient and/or guardian regarding: the historical points, exam findings, and any diagnostic results supporting the discharge/admit diagnosis, to return to the emergency department if symptoms worsen or persist or if there are any questions or concerns that arise at home. Response to treatment: the patient's symptoms have markedly improved after treatment. 12/18 09:30 Order name: CBC with Diff [facility] 12/18 09:30 Order name: CMP [facility] 12/18 09:30 Order name: Lipase [facility] 12/18 09:30 Order name: Urine Microscopic Only [facility] 12/18 10:41 Order name: Urine Dipstick-Ancillary; Complete Time: 10:51 [facility] 12/18 10:41 Order name: Glucose, Ancillary Testing; Complete Time: 10:51 [facility] 12/18 10:50 Order name: CBC with Automated Diff; Complete Time: 10:51 [facility] 12/18 11:05 Order name: Urine Microscopic Only; Complete Time: 11:17 [facility] 12/18 11:19 Order name: CT Abd/Pelvis - IV Contrast Only [facility] 12/18 11:25 Order name: Comprehensive Metabolic Panel; Complete Time: 11:37 [facility] 12/18 11:25 Order name: Lipase; Complete Time: 11:37 [facility] 12/18 12:02 Order name: CT; Complete Time: 12:02 [facility] 12/18 12:15 Order name: Urine Culture [facility] 12/18 12:49 Order name: Glucose, Ancillary Testing; Complete Time: 12:50 [facility] 12/18 09:30 Order name: IV Saline Lock; Complete Time: 10:45 [facility] 12/18 09:30 Order name: Labs collected and sent; Complete Time: 10:45 [facility] 12/18 09:30 Order name: Urine Dipstick-Ancillary (obtain specimen); Complete Time: 10:45 [facility] 12/18 09:30 Order name: Blood Glucose Level; Complete Time: 10:45 7 12/18 12:03 Order name: Recheck Blood Sugar; Complete Time: 12:43 jh7 Administered Medications: 10:25 Drug: NS 0.9% 1000 ml Route: IV; Rate: 1 bolus; Site: left antecubital; db 11:30 Follow up: Response: No adverse reaction; IV Status: Completed infusion; IV Intake: db 1000ml 10:25 Drug: Pepcid (famotidine) 20 mg Route: IVP; Site: right antecubital; db 12:50 Follow up: Response: No adverse reaction db 10:25 Drug: Zofran (Ondansetron) 4 mg Route: IVP; Site: right antecubital; db 12:50 Follow up: Response: No adverse reaction db Disposition: 11:26 Co-signature as Attending Physician, Bhupendra Villa DO I was immediately available on-site ms3 in the Emergency Department for consultation in the care of the patient. Disposition Summary: 12/18/22 12:03 Discharge Ordered Location: Home [facility] Problem: new [facility] Symptoms: have improved [facility] Condition: Stable [facility] Diagnosis - Noninfective gastroenteritis and colitis, unspecified jh7 - Hyperglycemia, unspecified jh7 Followup: [facility] - With: Lavon Hightower MD - When: 2 - 3 days - Reason: Recheck today's complaints Discharge Instructions: - Discharge Summary Sheet 7 - Diarrhea, Adult jh7 - Viral Gastroenteritis, Adult jh7 Forms: - Medication Reconciliation Form 7 - Thank You Letter 7 - Work release form db Prescriptions: - ondansetron 4 mg Oral tablet,disintegrating - place 1 tablet by TRANSLINGUAL route 4 times per day As needed; 20 tablet; 7 Refills: 0, Product Selection Permitted - Levsin 0.125 mg Oral Tablet - take 1 tablet by ORAL route every 8 hours; 30 tablet; Refills: 0, Product [facility] Selection Permitted Signatures: Dispatcher [employer] EDBhupendra Panda DO DO ms3 Sho Morales RN RN ld1 Sally Goldstein, EDUCATION PROGRAM MANAGER EDUCATION PROGRAM MANAGER 7 Luz Roberts RN RN db Corrections: (The following items were deleted from the chart) 10:00 09:30 This 52 yrs old Female presents to ER via Ambulatory with complaints of Abdominal 7 Pain, Diarrhea, Nausea. jh7
--- NOTE | 2022-12-18 12:04 | ER ---
Nurse's Notes [facility] Name: Pamela Bassett Age: 52 yrs Sex: Female : 1970 Arrival Date: 12/18/2022 Time: 09:23 Bed 18 Private MD: Lavon Hightower Diagnosis: Noninfective gastroenteritis and colitis, unspecified;Hyperglycemia, unspecified Presentation: 12/18 09:29 Chief complaint: Patient states: Unable to control BGL for 1-2 weeks. N/V/D for 1 week. ld1 Abdominal discomfort. Coronavirus screen: At this time, the client does not indicate any symptoms associated with coronavirus-19. Ebola Screen: No symptoms or risks identified at this time. Initial Sepsis Screen: Does the patient meet any 2 criteria? No. Patient's initial sepsis screen is negative. Does the patient have a suspected source of infection? No. Patient's initial sepsis screen is negative. Risk Assessment: Do you want to hurt yourself or someone else? Patient reports no desire to harm self or others. Onset of symptoms was December 18, 2022. 09:29 Method Of Arrival: Ambulatory ld1 09:29 Acuity: [place]AL[place] 3 ld1 Triage Assessment: :31 General: Appears in no apparent distress. comfortable, Behavior is calm, cooperative, ld1 appropriate for age. Pain: Denies pain. Neuro: Level of Consciousness is awake, alert, obeys commands, Oriented to person, place, time, situation. Respiratory: Airway is patent Respiratory effort is even, unlabored. GI: Abdomen is round non-distended, Reports diarrhea, nausea, vomiting, abdominal discomfort. 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 - Social history:: Smoking status: Patient denies any tobacco usage or history of. Patient/guardian denies using alcohol. Screenin:30 [facility] ED Fall Risk Assessment (Adult) History of falling in the last 3 months, db including since admission No falls in past 3 months (0 pts) Confusion or Disorientation No (0 pts) Intoxicated or Sedated No (0 pts) Impaired Gait No (0 pts) Mobility Assist Device Used No (0 pt) Altered Elimination No (0 pt) Score/Fall Risk Level 0 - 2 = Low Risk Oriented to surroundings, Maintained a safe environment. Abuse screen: Denies threats or abuse. Denies injuries from another. Nutritional screening: No deficits noted. Tuberculosis screening: No symptoms or risk factors identified. Assessment: 10:00 Reassessment: Patient appears in no apparent distress at this time. Patient and/or db family updated on plan of care and expected duration. Pain level reassessed. Patient is alert, oriented x 3, equal unlabored respirations, skin warm/dry/pink. high blood glucose and abdominal pain nausea since yesterday. General: Appears in no apparent distress. comfortable, Behavior is calm, cooperative. Neuro: No deficits noted. Level of Consciousness is awake, alert, obeys commands, Oriented to person, place, time, situation. Respiratory: Airway is patent Respiratory effort is even, unlabored, Respiratory pattern is regular, symmetrical. GI: Abdomen is distended, Bowel sounds present X 4 quads. Abd is soft and non tender. Vital Signs: 09:29 BP 136 / 70; Pulse 82; Resp 18; Temp 97.8(O); Pulse Ox 97% on R/A; Weight 128.82 kg; ld1 Height 5 ft. 5 in. (165.10 cm); Pain 0/10; 11:00 BP 123 / 82; Pulse 63; Resp 18; Pulse Ox 100% on R/A; db 11:43 BP 102 / 83; Pulse 66; Resp 17; Pulse Ox 100% ; jh5 12:30 BP 139 / 83; Pulse 78; Resp 16; Pulse Ox 100% on R/A; db 09:29 Body Mass Index 47.26 (128.82 kg, 165.10 cm) ld1 ED Course: 09:23 Patient arrived in ED. am2 09:23 Lavon Hightower MD is Private Physician. am2 09:23 [facility] Goldstein [facility] jh7 09:24 Bhupendra Villa DO is Attending Physician. jh7 09:31 Triage completed. ld1 09:31 Arm band placed on right wrist. ld1 09:44 Luz Roberts, RN is Primary Nurse. db 12:03 Lavon Hightower MD is Referral Physician. jh7 12:30 Patient has correct armband on for positive identification. Call light in reach. Side db rails up X 1. Pulse ox on. NIBP on. Warm blanket given. 12:30 No provider procedures requiring assistance completed. IV discontinued, intact, db bleeding controlled, No redness/swelling at site. Administered Medications: 10:25 Drug: NS 0.9% 1000 ml Route: IV; Rate: 1 bolus; Site: left antecubital; db 11:30 Follow up: Response: No adverse reaction; IV Status: Completed infusion; IV Intake: db 1000ml 10:25 Drug: Pepcid (famotidine) 20 mg Route: IVP; Site: right antecubital; db 12:50 Follow up: Response: No adverse reaction db 10:25 Drug: Zofran (Ondansetron) 4 mg Route: IVP; Site: right antecubital; db 12:50 Follow up: Response: No adverse reaction db Medication: 12:30 VIS not applicable for this client. db Intake: 11:30 IV: 1000ml; Total: 1000ml. db Outcome: 12:03 Discharge ordered by . jh7 12:30 Discharged to home ambulatory. db 12:30 Condition: stable 12:30 Discharge instructions given to patient, Instructed on discharge instructions, follow up and referral plans. Prescriptions given X 2. 12:51 Patient left the ED. db Signatures: Sintia Macario am2 Sho Morales, RN RN ld1 Monserrat Wolf RN RN jh5 Sally Goldstein FNP [employer] PA[employer]RO[employer] CONSULTANT jh7 Luz Roberts, RN RN db
[2022-12-18 12:59] VITALS: TEMP 97.8
[2022-12-18 13:25] VITALS: O2SAT 100
[2022-12-18 13:28] VITALS: BP 139/83
== END 2022-12-18 12:51 | disposition home or self-care (01) ==
LOC: ER 09:22
DX: K52.9 Noninfective gastroenteritis and colitis, unspecified (principal); E11.65 Type 2 diabetes mellitus with hyperglycemia; I10 Essential (primary) hypertension
CPT/HCPCS: 87088; 85025; 87086; 36415; 82947 ×2; 83690; 80053; 74177; Q9967; J7030; J2405; 81003; 81015; 87077; 87186; 96361; 96374; 96375; 99283

== ENCOUNTER 2022-12-26 13:32 | Emergency (ER) | payer OTHER ==
--- OUTSIDE RECORDS SUMMARY | 2022-12-26 13:35 | XMS REPORT | Continuity of Care Document ---
:1970 Author Organization [facility] t Address [address] [place] [address] Care Team Providers Name Role Phone OSIEL STALEY JR Primary Care Physician Unavailable Corky FITZPATRICK Attending Clinician Unavailable Corky Kothari Attending Clinician Doctor Unassigned, [place] Attending Clinician Unavailable LORI FOSTER Attending Clinician Unavailable Lab, Adc Fam Pob I Attending Clinician Unavailable Lori Menjivar Attending Clinician Corky FITZPATRICK Admitting Clinician Unavailable Payers Payer Name Policy Type Policy Number Effective Date Expiration Date S [facility] [id number] 2018 00:00:00 Problems Condition Condition Condition Status Onset Resolution Last Treating Co mments Source Name Details Category Date Date Treatment Clinician Date Rubella Rubella Disease Active Univers immune immune 02-24 ity of 00:00: [address] Hirsutism Hirsutism Disease Active Uni vers 02-23 ity of 00:00: [address] Diabetes- Diabetes- Disease Active Uni vers Type 2 Type 2 02-23 ity of 00:00: [address] Surveillan Surveillan Disease Active U nivers ce of ce of 02-23 [place] 00 Me dical contracept contracept Br anch naya pill naya pill PCOS PCOS Disease Active Univers (polycysti (polycysti -05 it y of c ovarian c ovarian [place] syndrome[place] syndrome) 00 [facility] Morbid Morbid Disease Active [facility] obesity obesity -05 ity of 00:00: [address] Allergies, Adverse Reactions, Alerts Allergy Allergy Status Severity Reaction(s) Onset Inactive Treating Comm ents Source Name Type Date Date Clinician NO KNOWN Drug Active [facility] ALLERGIE Class ity of S [facility] Social History Social Habit Start Date Stop Date Quantity Comments Source History SDOH University o f Alcohol Frequency [facility] edical Branch History SDOH University o f Alcohol Std [place] [facility] History SDTX University o f Alcohol Binge [place] [facility] Exposure to 2022-04-06 2022-04-16 Not sure [facility]-CoV-2 00:00:00 16:27:00 [facility] (event) Union Alcohol intake 2019-10-28 2019-10-28 Current drinker Unive rsity of 00:00:00 00:00:00 of alcohol [facility] (finding) [facility] Alcohol Comment 2014-10-06 2014-10-06 occasional Universit y of 00:00:00 00:00:00 [facility] Tobacco use and 2013-02-13 2013-02-13 Never used Universit y of exposure 00:00:00 00:00:00 [facility] Sex Ass[birth year] At [birth year] Universit y of 00:00:00 00:00:00 [facility] Smoking Status Start Date Stop Date Source Never smoker [facility] Medications Ordered Filled Start Stop Current Ordering [...] infusion 2 ONCE, 1 g dose, On [place] 04/16/22 at 1745, Routine iopamidol 2021- No [id number] 70mL 70 mL, U nivers (ISOVUE 04-16 [...] Medical Infusion, Branch ONCE, 1 dose, On [place] 04/16/22 at 1700, STAT dicyclomine Yes [id number] 20mg Take 1 Univers 20 mg 04-16 tablet by ity of tablet 00:00: mouth [address] [place] [id number] (four) Medical times Branch daily. omeprazole 2020-0 Yes 40mg Take 40 mg U nivers 20 mg 1-07 by mouth ity of capsule 20:05: daily. [address] glipiZIDE 2020-0 Yes 20mg Take 20 mg Un jeanne 10 mg 1-07 by mouth ity of tablet 20:05: daily. [address] losartan 25 2020-0 Yes 25mg Take 25 mg Univers mg tablet 1-07 by mouth ity of 20:05: daily. [address] LOVASTATIN 2020-0 Yes Take by Univ ers ORAL 1-07 mouth. ity of 20:05: [address] omeprazole 2020-0 Yes 40mg Take 40 mg U nivers 20 mg 1-07 by mouth ity of capsule 20:05: daily. [address] glipiZIDE 2020-0 Yes 20mg Take 20 mg Un jeanne 10 mg 1-07 by mouth ity of tablet 20:05: daily. [address] losartan 25 2020-0 Yes 25mg Take 25 mg Univers mg tablet 1-07 by mouth ity of 20:05: daily. [address] LOVASTATIN 2020-0 Yes Take by Univ ers ORAL 1-07 mouth. ity of 20:05: [address] omeprazole 2020-0 Yes 40mg Take 40 mg U nivers 20 mg 1-07 by mouth ity of capsule 14:05: daily. [address] glipiZIDE 2019-0 Yes 20mg Take 20 mg Un jeanne 10 mg 1-07 by mouth ity of tablet 14:05: daily. [address] losartan 25 2019-0 Yes 25mg Take 25 mg Univers mg tablet 1-07 by mouth ity of 14:05: daily. [address] LOVASTATIN 2019-0 Yes Take by Univ ers ORAL 1-07 mouth. ity of 14:05: [address] omeprazole 2019-0 Yes 40mg Take 40 mg U nivers 20 mg 1-07 by mouth ity of capsule 14:05: daily. [address] glipiZIDE 2019-0 Yes 20mg Take 20 mg Un jeanne 10 mg 1-07 by mouth ity of tablet 14:05: daily. [address] losartan 25 2019-0 Yes 25mg Take 25 mg Univers mg tablet 1-07 by mouth ity of 14:05: daily. [address] LOVASTATIN 2019-0 Yes Take by Univ ers ORAL 1-07 mouth. ity of 14:05: [address] metformin 2013-10 Yes 500mg Take 1 [...] ity of (PHENTERMIN 09:20: [place] E ORAL) [address] [place] [address] Immunizations Ordered Filled Immunization Date Status Comments Sour e Immunization Name Name MMR Booster 2012-01-22 Completed University of 00:00:00 [facility] MMR Booster 2012-01-22 Completed University of 00:00:00 [facility] MMR Booster 2012-01-22 Completed University of 00:00:00 [facility] MMR Booster 2012-01-22 Completed University of 00:00:00 [facility] TDAP 2011-12-28 Completed University of 00:00:00 [facility] TDAP 2011-12-28 Completed University of 00:00:00 [facility] TDAP 2011-12-28 Completed University of 00:00:00 [facility] TDAP 2011-12-28 Completed University of 00:00:00 [facility] Vital Signs Vital Name Observation Time Observation Value Comments Source Systolic blood 2022-04-16 22:00:00 135 mm[Hg] Univer sity of pressure [facility] Diastolic blood 2022-04-16 22:00:00 62 mm[Hg] Unive rsity of pressure [facility] Heart rate 2022-04-16 22:00:00 81 /min [facility] Respiratory rate 2022-04-16 22:00:00 16 /min [facility] Oxygen saturation in 2022-04-16 22:00:00 95 /min [facility] Arterial blood by [facility] Pulse oximetry Branch Body temperature 2022-04-16 20:21:00 37.44 Yany [facility] Body height 2022-04-16 20:21:00 165.1 cm [facility] Body weight 2022-04-16 20:21:00 140.615 kg [facility] BMI 2022-04-16 20:21:00 51.59 kg/m2 [facility] Procedures Procedure Date / Time Performing Clinician Source Performed URINALYSIS 2022-04-16 21:24:00 Corky Fitzpatrick [facility] ABDOMEN PELVIS W 2022-04-16 21:17:04 Corky Fitzpatrick [facility] CONTRAST [facility] CBC WITH DIFF 2022-04-16 20:41:00 Corky Fitzpatrick [facility] LIPASE 2022-04-16 20:41:00 Corky [facility]patrick [facility] MAGNESIUM 2022-04-16 20:41:00 Corky Fitzpatrick [facility] TROPONIN I 2022-04-16 20:41:00 [facility] COMP. METABOLIC PANEL 2022-04-16 20:41:00 Corky Fitzpatrick [facility] ([id number]) [facility] NOTICE OF PRIVACY 2022-04-16 20:08:24 Doctor Unassigned, No [facility] PRACTICES Name Medical Branch CONSENT/REFUSAL FOR 2022-04-16 20:08:08 [facility] Name [facility] AUTHORIZATION FOR 2020-06-10 05:01:00 Doctor Unassigned, No [facility] RELEASE OF PHI Name [facility] Encounters Start End Encounter Admission Attending Care Care Encounter Source Date/Time Date/Time Type Type Clinicians Facility Department ID 2022-04-16 2022-04-16 Emergency X Corky FITZPATRICK [facility] ERT [id number] Univers 15:22:00 17:55:00 ity of [facility] 2022-04-16 2022-04-16 Emergency Corky Fitzpatrick [facility] [id number] Univers 15:22:00 17:55:00 Paula BERMEO [id number] i ty [facility] 4.2.7.2.686 [facility] [id number] [address] 2022-04-16 2022-04-16 Orders Doctor ANGELA [id number] Univers 00:00:00 00:00:00 Only Unassigned, VIKTORIYA [id number] ity of [place] [facility] 4.2.7.2.686 Eric as [id number] [address] 2020-06-10 2020-06-10 Orders Doctor ANGELA [id number] 00:00:00 00:00:00 Only Unassigned, VIKTORIYA [id number] [place] [facility] 4.2.7.2.686 [id number] [facility] 2020-06-10 2020-06-10 Orders Doctor ANGELA [id number] Univers 00:00:00 00:00:00 Only Unassigned, VIKTORIYA [id number] ity of [place] [facility] 4.2.7.2.686 Eric as [phone] [address] 2020-05-25 2020-05-25 Outpatient R KRISTIN, [facility] [id number] [facility] 13:20:00 13:20:00 LORI ity of [facility] 2020-05-25 2020-05-25 Laboratory Lab, [facility] 1.2.840.114 [id number] 12:50:48 13:10:48 Only Fam Pob I Health 350.1.13.10 [place] 4.2.7.2.686 Professio [phone] [place] [address] [address] 2020-05-25 2020-05-25 Laboratory Lab, [facility] Fam Pob I [facility] [id number]. [id number] [id number] Univers 12:50:48 13:10:48 Only L[facility] 350.1.13.10 ity of [place] 4.2.7.2.686 Eric as Professio [phone] Id dical [address] Office [address] Results Test Description [...] See_Comment [Au tomated message] The system which Xuanyixia nerated this result transmit melly reference range: [...] 33.6 g/dL 31.6-35.1 RDW-SD (test code = 48676-5) 41.1 fL 39.0-49.9 RDW-CV (test code = 788-0) 12.9 % 12.0-15.5 PLT (test code = 777-3) See_Comment [Au tomated message] The system which Xuanyixia nerated this result transmit melly reference range: 166 - 35 8 10*3/?L. The reference range was not used to interpret th is result as normal/abnormal . MPV (test code = 53789-9) 11.3 fL 9.5-12.9 NRBC/100 WBC (test code = See_Comment [ Automated message] The 4492906206) system which Xuany[employer]ia nerated this result transmit melly reference range: 0.0 - 10 .0 /100 WBCs. The reference r benoit was not used to interpr et this result as normal/abnor mal. NRBC x10^3 (test code = <0.01 See_Comment [Au tomated message] The 5025811623) system which Xuanyixia nerated this result transmit melly reference range: 10*3/?L. The reference range was not u sed to interpret this result as normal/abnormal . GRAN MAT (NEUT) % (test code 45.8 % = 770-8) IMM GRAN % (test code = 0.20 % 2882231147) LYMPH % (test code = 736-9) 44.9 % MONO % (test code = 5905-5) 6.6 % EOS % (test code = 713-8) 1.7 % BASO % (test code = 706-2) 0.8 % GRAN MAT x10^3(ANC) (test 4.33 10*3/uL 1.88-7.09 code = 9028526383) IMM GRAN x10^3 (test code = <0.03 0.00-0.06 6851617253) LYMPH x10^3 (test code = 4.25 10*3/uL 1.32-3.29 H 731-0) MONO x10^3 (test code = 0.62 10*3/uL 0.33-0.92 742-7) EOS x10^3 (test code = 0.16 10*3/uL 0.03-0.39 711-2) BASO x10^3 (test code = 0.08 10*3/uL 0.01-0.07 H 704-7) Lab Interpretation (test Abnormal code = 21037-6) [facility] [id number] 21:12:50 Test Item Value Reference Interpretation Comments Range TROPONIN I (test 0.015 ng/mL See_Comment [Automated code = 8217744418) message] The system which generated this result [...] biotin. Lab Interpretation Normal (test code = 42657-8) [facility] Test Item Value Reference Range Interpretation Comments MAGNESIUM (test code = 8210333690) 1.6 mg/dL 1.7-2.4 L Lab Interpretation (test code = Abnormal 61133-0) [facility]. METABOLIC PANEL (32596)2022-04-16 21:01:48 Test Item Value Reference Range Interpretation Comments NA (test code = 136 mmol/L 135-145 5605188014) K (test code = 3.9 mmol/L 3.5-5.0 5209705560) CL (test code = 99 mmol/L 98-108 4323366488) CO2 TOTAL (test code = 24 mmol/L 23-31 3077465902) AGAP (test code = 2-16 8010698861) BUN (test code = 7 mg/dL 7-23 2257731773) GLUCOSE (test code = 300 mg/dL 70-110 H 0720122127) CREATININE (test code = 0.55 mg/dL 0.50-1.04 4561631417) TOTAL BILI (test code = 0.9 mg/dL 0.1-1.7 2925173099) CALCIUM (test code = 9.0 mg/dL 8.6-10.6 6614795977) T PROTEIN (test code = 6.9 g/dL 6.3-8.2 1748415864) ALBUMIN (test code = 4.0 g/dL 3.5-5.0 6140849056) ALK PHOS (test code = 88 U/L 34-122 6408930519) ALTv (test code = 18 U/L 5-35 1742-6) AST(SGOT) (test code = 21 U/L 13-40 3974570177) eGFR (test code = mL/min/1.73m2 9313434055) CHELSIE (test code = CHELSIE) Association of [...] tests). Lab Interpretation Abnormal (test code = 92756-0) [facility]28 Test Item Value Reference Range Interpretation Comments LIPASE (test code = 0298913607) 55 U/L 0-220 Lab Interpretation (test code = Normal 86613-6) [facility]"
[2022-12-26] MEDS ORDERED: ONDANSETRON 4 MG/2 ML VIAL ONE (15:29)
[2022-12-26] MEDS ORDERED: NA CHLORIDE 0.9% 1,000 ML ONE (15:30)
[2022-12-26 15:32] LABS: Absolute Lymphocytes (CBC) 4.9 K/uL (0.7-4.9); Hematocrit 42.3 % (36.0-45.0); Lymphocytes % 35.4 % (15.3-44.8); MCV 88.5 fL (80-100); MPV 9.8 fL (7.6-11.3); RBC Red Blood Cell Count 4.79 M/uL (3.86-4.86)
[2022-12-26 15:52] LABS: Albumin 3.4 g/dL (3.4-5.0); Bilirubin Total 0.4 mg/dL (0.2-1.0); Potassium 3.9 mmol/L (3.5-5.1); Protein, Total 7.5 g/dL (6.4-8.2)
--- NOTE | 2022-12-26 18:20 | RAD REPORT ---
EXAM DESCRIPTION: CTAbdomen Pelvis W Contrast - 12/26/2022 5:43 pm CLINICAL HISTORY: Abdominal pain. abdominal pain, vomiting COMPARISON: Abdomen Pelvis W Contrast dated 12/18/2022; Abdomen Pelvis W Contrast dated 11/13/2018 ; Abdomen Pelvis W Contrast dated 02/18/2018; Abdomen Pelvis W Contrast dated 10/13/2017 TECHNIQUE: Biphasic CT imaging of the abdomen and pelvis was performed with 100 ml non-ionic IV cont rast. All CT scans are performed using dose optimization technique as appropriate and may include automated exposure control or mA/KV adjustment according to patient size. FINDINGS: The lung bases are clear. The liver demonstrates diffuse fatty infiltration. Cholecystectomy. Spleen, pancreas, adrenal glands and kidneys are within normal limits. No bowel obstruction, free air, free fluid or abscess. Moderate stool is present throughout the colo n. No evidence of significant lymphadenopathy. No suspicious bony findings. IMPRESSION: No acute intra-abdominal or pelvic finding. Mild diffuse fatty liver infiltration. Moderate stool throughout the colon.
[2022-12-26 19:11] LABS: Urine Blood Negative (Negative); Urine Glucose 3+ (Negative); Urine Protein Negative (Negative)
[2022-12-26 19:29] LABS: Urine Bacteria >50 /HPF (<20); Urine Mucus Slight /HPF (None Seen)
[2022-12-26 21:23] VITALS: TEMP 98.2
[2022-12-26 21:28] VITALS: BP 132/84; O2SAT 100
--- NOTE | 2023-01-12 14:21 | EDPHYS ---
Physician Documentation [facility] Name: Pamela Bassett Age: 52 yrs Sex: Female : 1970 Arrival Date: 12/26/2022 Time: 13:35 Bed 10 Private MD: ED Physician Bhupendra Villa HPI: 12/26 14:14 This 52 yrs old Female presents to ER via Ambulatory with complaints of Abdominal Pain, jmm Vomiting. 14:14 The patient presents with abdominal pain. Onset: The symptoms/episode began/occurred jmm gradually, 3 week(s) ago. This 52-year-old female with history of diabetes mellitus, hypertension, Crohn's disease presents emerged part with complaints of ongoing abdominal pain. Patient was initially evaluated in the ED approximately 2 weeks ago diagnosed with viral gastroenteritis. Patient states she continues to have epigastric pain and vomiting. Patient has had a cholecystectomy. Denies fever. Patient not currently taking any medication for Crohn's disease. Historical: - Allergies: 14:08 No Known Allergies; mb9 - Home Meds: 14:08 Metformin Oral [Active]; losartan oral [Active]; Lovastatin Oral [Active]; mb9 - PMHx: 14:08 Diabetes - NIDDM; Hypertension; Irritable bowel syndrome; Migraines; PCOS; PUD; Stomach mb9 Ulcers; shingles; - PSHx: 14:08 Tonsillectomy; Cholecystectomy; mb9 - Immunization history:: Adult Immunizations up to date. - Social history:: Smoking status: Patient denies any tobacco usage or history of. ROS: 14:14 Constitutional: Negative for fever, chills, and weight loss, Cardiovascular: Negative jmm for chest pain, palpitations, and edema, Respiratory: Negative for shortness of breath, cough, wheezing, and pleuritic chest pain. 14:14 Abdomen/GI: Positive for abdominal pain, nausea and vomiting. 14:14 All other systems are negative. Exam: 14:14 Constitutional: This is a well developed, well nourished patient who is awake, alert, jmm and in no acute distress. Head/Face: atraumatic. Eyes: EOMI, no conjunctival erythema appreciated ENT: Moist Mucus Membranes Neck: Trachea midline, Supple Chest/axilla: Normal chest wall appearance and motion. Cardiovascular: Regular rate and rhythm. No edema appreciated Respiratory: Normal respirations, no respiratory distress appreciated 14:14 Back: Normal ROM Skin: General appearance color normal MS/ Extremity: Moves all extremities, no obvious deformities appreciated, no edema noted to the lower extremities Neuro: Awake and alert Psych: Behavior is normal, Mood is normal, Patient is cooperative and pleasant 14:14 Abdomen/GI: Inspection: abdomen appears normal, Bowel sounds: normal, Palpation: soft, mild abdominal tenderness, in the epigastric area. Vital Signs: 14:05 BP 128 / 76; Pulse 89; Resp 20; Temp 98.2; Pulse Ox 99% ; Weight 128.82 kg; Height 5 mb9 ft. 5 in. ; Pain 7/10; 19:56 BP 132 / 84; Pulse 78; Resp 20; Pulse Ox 100% ; Pain 0/10; mb9 14:05 Body Mass Index 47.26 (128.82 kg, 165.1 cm) mb9 14:05 Pain Scale: Adult mb9 19:56 Pain Scale: Adult mb9 MDM: 14:14 Patient medically screened. [facility] 19:11 Differential diagnosis: diverticulitis, gastritis, non-specific abd pain, pancreatitis, [facility] Peptic Ulcer Disease. Data reviewed: vital signs, nurses notes. I considered the following discharge prescriptions or medication management in the emergency department Medications were administered in the Emergency Department. See MAR. Counseling: I had a detailed discussion with the patient and/or guardian regarding: the historical points, exam findings, and any diagnostic results supporting the discharge/admit diagnosis, lab results, radiology results, the need for outpatient follow up, to return to the emergency department if symptoms worsen or persist or if there are any questions or concerns that arise at home. ED course: Patient is alert nontoxic in appearance NAD. Patient advised follow-up with gastroenterology for further evaluation. Patient understood and agrees plan of care.. 12/26 14:23 Order name: CBC with Diff [facility] 12/26 14:23 Order name: CMP [facility] 12/26 14:23 Order name: Lipase [facility] 12/26 15:32 Order name: CBC with Automated Diff; Complete Time: 15:37 EDMS 12/26 15:53 Order name: Comprehensive Metabolic Panel; Complete Time: 15:59 EDMS 12/26 15:53 Order name: Lipase; Complete Time: 15:59 EDMS 12/26 19:11 Order name: Urine Dipstick-Ancillary; Complete Time: 19:19 [facility] 12/26 19:12 Order name: Urine Microscopic Only; Complete Time: 19:34 [facility] 12/26 15:59 Order name: CT Abd/Pelvis - IV Contrast Only; Complete Time: 18:21 [facility] 12/26 14:23 Order name: IV Saline Lock; Complete Time: 15:14 [facility] 12/26 14:23 Order name: Labs collected and sent; Complete Time: 15:14 [facility] 12/26 18:22 Order name: Urine Dipstick-Ancillary (obtain specimen); Complete Time: 19:14 [facility] Administered Medications: 15:30 Drug: NS 0.9% IV 1000 ml Route: IV; Rate: 1 bolus; Site: left antecubital; iw 15:30 Drug: Ondansetron IVP 4 mg Route: IVP; Site: left antecubital; iw Disposition: 12/27 13:37 Co-signature as Attending Physician, Bhupendra LOREDO was immediately available on-site ms3 in the Emergency Department for consultation in the care of the patient. Disposition Summary: 12/26/22 19:12 Discharge Ordered Location: Home [facility] Condition: Stable [facility] Diagnosis - Vomiting jmm - Abdominal pain, unspecified jmm Followup: [facility] - With: Private Physician - When: 2 - 3 days - Reason: Recheck today's complaints, Continuance of care, Re-evaluation by your physician Discharge Instructions: - Discharge Summary Sheet jm - Abdominal Pain, Adult jmm - Vomiting, Adult jmm Forms: - Medication Reconciliation Form [facility] - Thank You Letter [facility] - Antibiotic Education [facility] - Prescription Opioid Use [facility] - Work release form kr3 Prescriptions: - Flagyl 500 mg Oral Tablet - take 1 tablet by ORAL route every 6 hours for 7 days; 28 tablet; Refills: 0, [facility] Product Selection Permitted - Reglan 10 mg Oral Tablet - take 1 tablet by ORAL route 2 times per day As needed take 30 minutes before [facility] meals and at bedtime; 20 tablet; Refills: 0, Product Selection Permitted - Cipro 500 mg Oral Tablet - take 1 tablet by ORAL route every 12 hours for 7 days; 14 tablet; Refills: 0, [facility] Product Selection Permitted - dicyclomine 20 mg Oral Tablet - take 1 tablet by ORAL route 3 times per day As needed; 20 tablet; Refills: 0, [facility] Product Selection Permitted Signatures: Dispatcher [employer] David Peña PA PA jmm Williams, Irene, RN RN iw Bhupendra Villa DO DO ms3 Marcela Rodrigues RN RN mb9
--- NOTE | 2023-01-12 14:21 | ER ---
Nurse's Notes [facility] Name: Pamela Bassett Age: 52 yrs Sex: Female : 1970 Arrival Date: 12/26/2022 Time: 13:35 Bed 10 Private MD: Diagnosis: Vomiting;Abdominal pain, unspecified Presentation: 12/26 14:05 Chief complaint: Patient states: "I was here last week for a stomach virus. I still mb9 have pain, dizzy, Headache, but no fever or diarrhea. My stomach hurts across the top and feels like I'm getting the crap beat out of me.". Coronavirus screen: Vaccine status: Patient reports receiving the 2nd dose of the covid vaccine. Ebola Screen: No symptoms or risks identified at this time. Initial Sepsis Screen: Does the patient meet any 2 criteria? No. Patient's initial sepsis screen is negative. Does the patient have a suspected source of infection? No. Patient's initial sepsis screen is negative. Risk Assessment: Do you want to hurt yourself or someone else? Patient reports no desire to harm self or others. Onset of symptoms was December 20, 2022. 14:05 Method Of Arrival: Ambulatory mb9 14:05 Acuity: ITALO 3 mb9 Historical: - Allergies: 14:08 No Known Allergies; mb9 - Home Meds: 14:08 Metformin Oral [Active]; losartan oral [Active]; Lovastatin Oral [Active]; mb9 - PMHx: 14:08 Diabetes - NIDDM; Hypertension; Irritable bowel syndrome; Migraines; PCOS; PUD; Stomach mb9 Ulcers; shingles; - PSHx: 14:08 Tonsillectomy; Cholecystectomy; mb9 - Immunization history:: Adult Immunizations up to date. - Social history:: Smoking status: Patient denies any tobacco usage or history of. Assessment: 19:56 Reassessment: No changes from previously documented assessment. Patient and/or family mb9 updated on plan of care and expected duration. Pain level reassessed. Patient is alert, oriented x 3, equal unlabored respirations, skin warm/dry/pink. Patient denies pain at this time. Patient states feeling better. Patient states symptoms have improved. Vital Signs: 14:05 BP 128 / 76; Pulse 89; Resp 20; Temp 98.2; Pulse Ox 99% ; Weight 128.82 kg; Height 5 mb9 ft. 5 in. ; Pain 7/10; 19:56 BP 132 / 84; Pulse 78; Resp 20; Pulse Ox 100% ; Pain 0/10; mb9 14:05 Body Mass Index 47.26 (128.82 kg, 165.1 cm) mb9 14:05 Pain Scale: Adult mb9 19:56 Pain Scale: Adult mb9 ED Course: 13:35 Patient arrived in ED. mr 14:01 David Stone PA is PHCP. jmm 14:01 Bhupendra Villa DO is Attending Physician. jmm 14:08 Triage completed. mb9 14:10 Arm band placed on. mb9 15:13 Love Olivas, RN is Primary Nurse. iw 15:45 Inserted saline lock: 22 gauge in left antecubital area, using aseptic technique. iw 17:45 CT Abd/Pelvis - IV Contrast Only In Process Unspecified. EDMS 19:57 IV discontinued, intact, bleeding controlled, No redness/swelling at site. Pressure mb9 dressing applied. Administered Medications: 15:30 Drug: NS 0.9% IV 1000 ml Route: IV; Rate: 1 bolus; Site: left antecubital; iw 15:30 Drug: Ondansetron IVP 4 mg Route: IVP; Site: left antecubital; iw Outcome: 19:12 Discharge ordered by MD. m 19:56 Discharged to home ambulatory. mb9 19:56 Condition: stable 19:56 Discharge instructions given to patient, Instructed on discharge instructions, follow up and referral plans. Demonstrated understanding of instructions, follow-up care, medications, Prescriptions given X 4. 19:57 Patient left the ED. mb9 Signatures: Dispatcher [employer] EDMS David Stone PA PA jmm Rivera, Mary mr Williams, Irene, RN Marcela Kaplan RN RN [email or web address]
== END 2022-12-26 19:57 | disposition home or self-care (01) ==
LOC: ER 13:32
DX: R11.2 Nausea with vomiting, unspecified (principal); R10.13 Epigastric pain
CPT/HCPCS: 85025; 36415; 83690; 80053; 74177; 96374; 99284; Q9967; J2405; J7030; 81003; 81015

== ENCOUNTER 2024-08-11 16:16 | Inpatient (IN) | payer OTHER ==
[2024-08-11 18:06] LABS: Absolute Basophils 0.4 K/uL (0-0.5); Absolute Eosinophils 0.2 K/uL (0-0.5); Absolute Lymphocytes (CBC) 5.3 K/uL (0.7-4.9); Absolute Monocytes 1.6 K/uL (0.1-1.3); Absolute Neutrophil 14.5 K/uL (1.8-8.0); Basophils % 1.8 % (0-1.3); Eosinophils % 0.8 % (0-4.4); Hematocrit 45.5 % (36.0-45.0); Hemoglobin 15.3 g/dL (12.0-15.0); MCH 30.2 pg (27.0-35.0); MCHC 33.7 g/dL (32.0-36.0); MCV 89.6 fL (80-100); MPV 9.4 fL (7.6-11.3); Monocytes % 7.3 % (3.3-12.3); Neutrophils % 66.1 % (41.7-73.7); Nucleated Red Blood Cells % 0.1 % (0-0); Platelets 292 thou/uL (152-406); RBC Red Blood Cell Count 5.08 M/uL (3.86-4.86); Red Cell Distribution Width 13.3 % (12.1-15.2)
[2024-08-11 18:09] LABS: Specific Gravity > 1.030 (1.005-1.030); Urine Bilirubin NEGATIVE (Negative); Urine Blood Negative (Negative); Urine Clarity Clear (Clear); Urine Color Light-Yellow (Yellow); Urine Glucose 4+ (Over) (Negative); Urine Ketones TRACE (Negative); Urine Microscopic Reflex YN NO UMIC; Urine Nitrite NEGATIVE (Negative); Urine Protein NEGATIVE (Negative); Urine Urobilinogen Normal (Normal)
[2024-08-11 18:27] LABS: Albumin 3.1 g/dL (3.4-5.0); Albumin/Globulin Ratio 0.6 (1.1-1.8); Anion Gap 10.8 mEq/L (5.0-15.0); Bilirubin Total 0.9 mg/dL (0.2-1.0); Globulin 5.4 g/dL (2.3-3.5); Protein, Total 8.5 g/dL (6.4-8.2)
[2024-08-11 18:28] LABS: Potassium 5.8 mEq/L (3.5-5.1)
[2024-08-11 18:30] LABS: SARS-CoV-2 Antigen CONTROL BLUE LINE VIS/BG OK; SARS-CoV-2 Antigen Rapid Res Negative (Negative)
[2024-08-11] MEDS ORDERED: NA CHLORIDE 0.9% 1,000 ML ONE (19:37)
--- NOTE | 2024-08-11 20:22 | EDPHYS ---
Physician Documentation [facility] Name: Pamela Bassett Age: 54 yrs Sex: Female : 1970 Arrival Date: 08/11/2024 Time: 16:16 Bed 25 Private MD: ED Physician Braydon Mccallum HPI: 08/11 20:02 This 54 yrs old Female presents to ER via Ambulatory with complaints of Flu Symptoms. bo1 20:02 Hx of RSV in Aug 2023, Covid in May 2024, persistent cough for weeks. Suspected bo1 bronchitis treated with rounds of Prednisone. PCP had dx "flu" but Rx Amoxil. Sent to ER for eval.. Onset: The symptoms/episode began/occurred gradually, 3 week(s) ago. It is unknown whether or not the patient has had similar symptoms in the past. Pt has had c-diff in the past. Known DM with poor control. . Historical: - Allergies: 16:24 No Known Allergies; ll1 - PMHx: 16:24 Diabetes - NIDDM; Hypertension; Irritable bowel syndrome; Migraines; PCOS; PUD; ll1 shingles; Stomach Ulcers; - PSHx: 16:24 Cholecystectomy; Tonsillectomy; ll1 - Immunization history:: Adult Immunizations up to date. - Social history:: Smoking status: Patient denies any tobacco usage or history of. ROS: 19:16 Constitutional: Negative for weight loss. bo1 19:16 Constitutional: Positive for fever, 19:16 ENT: Positive for sore throat, 19:16 Neck: Positive for pain at rest, At the back, 19:16 Respiratory: Positive for cough, 19:16 : Negative for urinary symptoms, 19:16 Skin: Negative for rash, 19:16 All other systems are negative, Exam: 20:07 Constitutional: This is a well developed, well nourished patient who is awake, alert, bo1 and in no acute distress. 20:07 Constitutional: The patient appears alert, awake, non-toxic, 20:07 Eyes: Sclera: no appreciated abnormality, 20:07 ENT: Posterior pharynx: is normal, airway is patent, No exudates or petechia, 20:07 Neck: External neck: is normal, swelling, is not appreciated, tenderness, that is mild, Supple, no meningismus, 20:07 Chest/axilla: Inspection: normal, 20:07 Cardiovascular: Rate: tachycardic, Rhythm: regular, Pulses: no pulse deficits are appreciated, 20:07 Respiratory: the patient does not display signs of respiratory distress, Respirations: normal, Breath sounds: are clear throughout, Respiratory rate: Normal rate 20:07 Abdomen/GI: Inspection: abdomen appears normal, Palpation: abdomen is soft and non-tender, rebound tenderness, is not appreciated, 20:07 Back: CVA tenderness, is absent, 20:07 Skin: Exam negative for lesions, petechiae, rash, 20:10 Neuro: Orientation: is normal, Mentation: is normal, Memory: is normal, bo1 Vital Signs: 16:48 BP 161 / 103; Pulse 112; Resp 18; Temp 97.4; Pulse Ox 98% ; Weight 114.76 kg; Height 5 ll1 ft. 5 in. ; Pain 8/10; 19:00 BP 150 / 65; Pulse 104; Resp 16; Pulse Ox 99% on R/A; jb4 20:00 BP 133 / 69; Pulse 102; Resp 16; Pulse Ox 96% on R/A; jb4 21:15 BP 140 / 71; Pulse 98; Resp 16; Pulse Ox 97% on R/A; jb4 22:00 BP 142 / 75; Pulse 97; Resp 16; Pulse Ox 96% on R/A; jb4 23:13 BP 132 / 92; Pulse 98; Resp 16; Temp 98.7(O); Pulse Ox 96% on R/A; jb4 16:48 Body Mass Index 42.10 (114.76 kg, 165.1 cm) ll1 16:48 Pain Scale: Adult ll1 MDM: 16:50 Medical Screening Exam initiated bo1 20:06 Differential Diagnosis sepsis, Viral illness, dehydration, hyperglycemia, bo1 immunocompromised state vs metabolic syndrome. Data reviewed: vital signs, lab test result(s), CBC, electrolytes, Flu: negative urinalysis, lactic acid, LDH; Covid and RSV: Negative. Consideration of Admission/Observation Patient was admitted/placed on observation. 20:11 Data reviewed: radiologic studies, plain films. bo1 08/11 17:27 Order name: CBC with Diff; Complete Time: 23:48 bo1 08/11 17:27 Order name: CMP; Complete Time: 18:53 bo1 08/11 17:27 Order name: Lipase; Complete Time: 18:53 bo1 08/11 17:28 Order name: Urinalysis w/ reflexes; Complete Time: 18:53 bo1 08/11 17:43 Order name: Flu; Complete Time: 18:53 jb4 08/11 17:43 Order name: SARS RAPID; Complete Time: 18:53 jb4 08/11 17:43 Order name: RSV; Complete Time: 18:53 jb4 08/11 18:54 Order name: Lactate w/ 2H reflex if indic.; Complete Time: 20:15 bo1 08/11 18:54 Order name: Lactic Dehydrogenase; Complete Time: 20:13 bo1 08/11 18:58 Order name: Blood Culture Adult (2) bo1 08/11 21:04 Order name: CBC Smear Scan; Complete Time: 23:48 EDMS 08/11 22:08 Order name: Lactate w/ 2H reflex if indic. EDMS 08/11 22:08 Order name: Urinalysis w/ reflexes EDMS 08/11 22:08 Order name: CBC with Automated Diff EDMS 08/11 22:08 Order name: CBC with Automated Diff EDMS 08/11 22:08 Order name: Comprehensive Metabolic Panel EDMS 08/11 22:08 Order name: Comprehensive Metabolic Panel EDMS 08/11 22:08 Order name: Hemoglobin A1c EDMS 08/11 22:08 Order name: Hemoglobin A1c EDMS 08/11 22:08 Order name: Magnesium EDMS 08/11 22:08 Order name: Magnesium EDMS 08/11 19:19 Order name: Chest Single View XRAY; Complete Time: 20:28 bo1 08/11 20:43 Order name: CT Chest, Abdomen, Pelvis - W/Contrast; Complete Time: 23:48 sp4 08/11 17:27 Order name: IV Saline Lock; Complete Time: 19:43 bo1 08/11 17:27 Order name: Labs collected and sent; Complete Time: 17:58 bo1 Administered Medications: 19:43 Drug: NS 0.9% IV 1000 ml IV at 1 bolus Per protocol; to be given as a bolus over 60 jb4 minutes Route: IV; Rate: 1 bolus; Site: right antecubital; 20:43 Follow up: Response: No adverse reaction; IV Status: Completed infusion; IV Intake: jb4 1000ml Disposition Summary: 08/11/24 20:22 Hospitalization Ordered Notes: Hospitalization Status: Inpatient Admission bo1 Provider: Gaib Rock Location: Telemetry/MedSurg (Inpatient) bo1 Condition: Fair bo1 Problem: chronic bo1 Symptoms: are unchanged bo1 Bed/Room Type: Standard [facility] Room Assignment: 410(08/11/24 22:21) rv1 Diagnosis - Fever, unspecified bo1 - Other specified diabetes mellitus with hyperglycemia bo1 - Hypo-osmolality and hyponatremia bo1 - Dehydration bo1 Forms: - Medication Reconciliation Form bo1 - SBAR form bo1 - Leadership Thank You Letter bo1 Signatures: Dispatcher [employer] EDMS Matt Cortez RN RN jb4 Mague Shea RN RN ll1 Rose Morgan rv1 Braydon Mccallum MD MD sp4 Gabi Rock, FOOT SPECIALIST FOOT SPECIALIST cm12 OeiOwen MD MD bo1 Corrections: (The following items were deleted from the chart) 17:28 17:28 CBC+H.LAB.BRZ ordered. EDMS EDMS 17:28 17:28 COMPREHENSIVE METABOLIC PANEL+C.LAB.BRZ ordered. EDMS EDMS 17:28 17:28 LIPASE+C.LAB.BRZ ordered. EDMS EDMS 22:21 20:22 bo1 rv1
--- NOTE | 2024-08-11 20:22 | ER ---
Nurse's Notes [facility] Name: Pamela Bassett Age: 54 yrs Sex: Female : 1970 Arrival Date: 08/11/2024 Time: 16:16 Bed 25 Private MD: Diagnosis: Fever, unspecified;Other specified diabetes mellitus with hyperglycemia;Hypo-osmolality and hyponatremia;Dehydration Presentation: 08/11 16:48 Chief complaint: Patient states: COLE, cough, fatigue, fever since Sunday. Coronavirus ll1 screen: Client denies travel out of the [place] in the last 14 days. cough unrelated to allergies, fatigue, fever, headache, shortness of breath, sore throat. Ebola Screen: Patient denies travel to an Ebola-affected area in the 21 days before illness onset. Initial Sepsis Screen: Does the patient meet any 2 criteria? No. Patient's initial sepsis screen is negative. Does the patient have a suspected source of infection? No. Patient's initial sepsis screen is negative. Risk Assessment: Do you want to hurt yourself or someone else? Patient reports no desire to harm self or others. Onset of symptoms was August 09, 2024. 16:48 Method Of Arrival: Ambulatory ll1 16:48 Acuity: ITALO 3 ll1 Triage Assessment: 16:48 General: Appears uncomfortable, Behavior is calm, cooperative, appropriate for age, ll1 Reports fever for feeling ill for fatigue for. Neuro: Reports headache. Respiratory: Reports cough that is. Historical: - Allergies: 16:24 No Known Allergies; ll1 - PMHx: 16:24 Diabetes - NIDDM; Hypertension; Irritable bowel syndrome; Migraines; PCOS; PUD; ll1 shingles; Stomach Ulcers; - PSHx: 16:24 Cholecystectomy; Tonsillectomy; ll1 - Immunization history:: Adult Immunizations up to date. - Social history:: Smoking status: Patient denies any tobacco usage or history of. Screenin/22 00:27 [facility] ED Fall Risk Assessment (Adult) History of falling in the last 3 months, jb4 including since admission No falls in past 3 months (0 pts) Confusion or Disorientation No (0 pts) Intoxicated or Sedated No (0 pts) Impaired Gait No (0 pts) Mobility Assist Device Used No (0 pt) Altered Elimination No (0 pt) Score/Fall Risk Level 0 - 2 = Low Risk Oriented to surroundings, Maintained a safe environment. Abuse screen: Denies threats or abuse. Nutritional screening: No deficits noted. Tuberculosis screening: No symptoms or risk factors identified. Assessment: 08/11 17:00 General: Appears in no apparent distress. comfortable, Behavior is calm, cooperative, jb4 appropriate for age. Pain: Complains of pain in headache Pain does not radiate. Pain currently is 9 out of 10 on a pain scale. Neuro: Level of Consciousness is awake, alert, obeys commands, Oriented to person, place, time, situation. Cardiovascular: Patient's skin is warm and dry. Respiratory: Airway is patent Respiratory effort is even, unlabored, Respiratory pattern is regular, symmetrical. GI: No signs and/or symptoms were reported involving the gastrointestinal system. : No signs and/or symptoms were reported regarding the genitourinary system. EENT: No signs and/or symptoms were reported regarding the EENT system. Derm: Skin is intact, Skin is pink, warm \T\ dry. Musculoskeletal: Circulation, motion, and sensation intact. Range of motion: intact in all extremities. 18:00 Reassessment: Patient appears in no apparent distress at this time. Patient and/or jb4 family updated on plan of care and expected duration. Pain level reassessed. Patient is alert, oriented x 3, equal unlabored respirations, skin warm/dry/pink. 19:00 Reassessment: Patient appears in no apparent distress at this time. Patient and/or jb4 family updated on plan of care and expected duration. Pain level reassessed. Patient is alert, oriented x 3, equal unlabored respirations, skin warm/dry/pink. 20:00 Reassessment: Patient appears in no apparent distress at this time. Patient and/or jb4 family updated on plan of care and expected duration. Pain level reassessed. Patient is alert, oriented x 3, equal unlabored respirations, skin warm/dry/pink. 21:00 Reassessment: Patient appears in no apparent distress at this time. Patient and/or jb4 family updated on plan of care and expected duration. Pain level reassessed. Patient is alert, oriented x 3, equal unlabored respirations, skin warm/dry/pink. 22:00 Reassessment: Patient appears in no apparent distress at this time. Patient and/or jb4 family updated on plan of care and expected duration. Pain level reassessed. Patient is alert, oriented x 3, equal unlabored respirations, skin warm/dry/pink. 23:14 Reassessment: Patient appears in no apparent distress at this time. Patient and/or jb4 family updated on plan of care and expected duration. Pain level reassessed. Patient is alert, oriented x 3, equal unlabored respirations, skin warm/dry/pink. Vital Signs: 16:48 BP 161 / 103; Pulse 112; Resp 18; Temp 97.4; Pulse Ox 98% ; Weight 114.76 kg; Height 5 ll1 ft. 5 in. ; Pain 8/10; 19:00 BP 150 / 65; Pulse 104; Resp 16; Pulse Ox 99% on R/A; jb4 20:00 BP 133 / 69; Pulse 102; Resp 16; Pulse Ox 96% on R/A; jb4 21:15 BP 140 / 71; Pulse 98; Resp 16; Pulse Ox 97% on R/A; jb4 22:00 BP 142 / 75; Pulse 97; Resp 16; Pulse Ox 96% on R/A; jb4 23:13 BP 132 / 92; Pulse 98; Resp 16; Temp 98.7(O); Pulse Ox 96% on R/A; jb4 16:48 Body Mass Index 42.10 (114.76 kg, 165.1 cm) ll1 16:48 Pain Scale: Adult ll1 ED Course: 16:20 Patient arrived in ED. mg5 16:24 Arm band placed on. ll1 16:50 Owen Ojeda MD is Attending Physician. bo1 16:50 Triage completed. ll1 17:58 CBC with Diff Sent. jb4 17:58 CMP Sent. jb4 17:58 Urinalysis w/ reflexes Sent. jb4 17:58 RSV Sent. jb4 17:58 SARS RAPID Sent. jb4 17:58 Flu Sent. jb4 20:19 Gabi Rock FNP is Hospitalizing Provider. bo1 20:20 Chest Single View XRAY In Process Unspecified. EDMS 20:42 Attending Physician role handed off by Owen Ojeda MD sp4 20:42 Braydon Mccallum MD is Attending Physician. sp4 21:14 CT Chest, Abdomen, Pelvis - W/Contrast In Process Unspecified. EDMS 08/12 00:27 Patient has correct armband on for positive identification. Bed in low position. Call jb4 light in reach. Side rails up X 1. Provided Education on: need for admit. 00:27 No provider procedures requiring assistance completed. Patient admitted, IV remains in jb4 place. Administered Medications: 08/11 19:43 Drug: NS 0.9% IV 1000 ml IV at 1 bolus Per protocol; to be given as a bolus over 60 jb4 minutes Route: IV; Rate: 1 bolus; Site: right antecubital; 20:43 Follow up: Response: No adverse reaction; IV Status: Completed infusion; IV Intake: jb4 1000ml Intake: 20:43 IV: 1000ml; Total: 1000ml. jb4 Outcome: 20:22 Decision to Hospitalize by Provider. bo1 08/12 00:27 Discharged to home ambulatory, jb4 Condition: stable Discharge instructions given to patient, Instructed on the need for admit, Demonstrated understanding of instructions, 00:29 Patient left the ED. jb4 Signatures: Dispatcher [employer] EDMS Matt Cortez, RN RN jb4 Mague Shea RN RN ll1 Braydon Mccallum MD MD sp4 Melvina Pop mg5 Owen Ojeda MD MD bo1
--- NOTE | 2024-08-11 20:25 | RAD REPORT ---
Procedure: Chest Single View HISTORY: Fever COMPARISON: 2018 FINDINGS: The lungs appear clear of acute infiltrate. No significant pleural effusion noted. The heart is normal size. IMPRESSION: No acute abnormality is displayed.
[2024-08-11 21:04] LABS: Blood Morphology Comment NOT SEEN (NOT SEEN); Platelet Estimate ADEQ; Platelets Clumped FEW; White Blood Cell Scan OK (OK)
--- NOTE | 2024-08-11 21:40 | RAD REPORT ---
EXAM: Chest Abdomen Pelvis W Cont CLINICAL INDICATION: Chest and abdominal pain. Cough TECHNIQUE: CT chest, abdomen and pelvis was performed, with 100 cc Isovue-300 IV contrast, as per de partment protocol. Axial, sagittal and coronal reconstructions were obtained. One or more of the following dose reduction techniques were used: Automated exposure control, adjustment of the mA and/o r kV according to the patient size, and/or iterative reconstruction. Unless otherwise specified, incidental findings do not require dedicated imaging follow-up. [id number]. Oral contrast not given. This limits evaluation of the bowel. COMPARISON: 2022 CT abdomen FINDINGS: Lungs are clear. No mediastinal or hilar lymphadenopathy. No pleural effusion.. No pericardial effusion Prominence of the caudate and left lobe liver may indicate cirrhosis. Portal vein is patent. , spleen, pancreas, adrenals, and kidneys appear unremarkable. There is no evidence of diverticulitis 2.5 cm right ovarian cyst. No follow-up imaging recommended. No significant free fluid. IMPRESSION: 2.5 cm right ovarian cyst without significant fluid.
[2024-08-11] MEDS ORDERED: ALPRAZOLAM 0.25 MG TABLET PO PRN (22:01)
[2024-08-11] MEDS: AZITHROMYCIN IV 500 MG in NA CHLORIDE 0.9% 250 ML IVPB SCH (22:03)
[2024-08-11] MEDS: CEFEPIME 2 GM in NA CHLORIDE 0.9% 100 ML IV SCH (22:04)
[2024-08-11] MEDS: BUDESONIDE 0.5 MG/2 ML NEB NEB SCH (22:05)
--- NOTE | 2024-08-11 23:51 | P.HP ---
Certification for Inpatient Patient admitted to: Observation <Gabi Rock - Last Filed: 08/12/24 01:43> Patient History Date of Service: 08/12/24 Reason for admission: Fever, leukocytosis History of Present Illness: 54 yrs old Female with past medical history Sjogren, diabetes - NIDDM; Hypertension; Irritable bowel syndrome; Migraines; PCOS; PUD; shingles; Stomach Ulcers; presented to the emergency room with persistent cough. Flulike symptoms, fevers over the last 2 days. She reports previously being treated with steroids. She reported symptoms coughing started with COVID and has been has been persistent. She reports being treated with antibiotics, Amoxil. recurrent bronchitis. She reports seeing Dr. Curiel she did. she denies chest pain, abdominal pain, shortness of breath, she reports blood sugars are uncon trolled, recently increasing Lantus to 50 mg at bedtime, plan to admit for leukocytosis, chronic bronchitis diabetes with hyperglycemia, Hypo-osmolality and hyponatremia Dehydration. ER evaluation - Past Medical/Surgical History Diabetic: Yes -: dm -: polycystic ovaries -: migraines -: Peptic ulcer disease -: Sjogren's -: Uncontrolled diabetes -: Hypertension -: PUD -: Shingles -: Stomach ulcers -: EGD - Social History Alcohol use: No CD- Drugs: No Caffeine use: Yes <Gabi Rock - Last Filed: 08/12/24 01:43> Date of Service: 08/11/24 <Anu Brock - Last Filed: 08/13/24 07:49> Allergies No Known Allergies Allergy (Verified 08/12/24 01:02) Home Medications: Cholestyramine (with Sugar) [Cholestyramine Packet] 1 packet PO DAILY 08/12/24 Dulaglutide [Trulicity] 08/12/24 Insulin Detemir [Levemir Flexpen] 08/12/24 Montelukast [Singulair] 10 mg PO BEDTIME 08/12/24 Omeprazole 20 mg PO DAILY 08/12/24 Review of Systems 10-point ROS is otherwise unremarkable General: As per HPI <Gabi Rock - Last Filed: 08/12/24 01:43> Physical Examination - Physical Exam General: Alert, In no apparent distress, Oriented x3, Obese HEENT: Atraumatic, Normocephalic Neck: Supple, 2+ carotid pulse no bruit Respiratory: Clear to auscultation bilaterally, Other (Chronic bronchitis, cough) Cardiovascular: Normal pulses, Regular rate/rhythm, Normal S1 S2 Gastrointestinal: Normal bowel sounds, Soft and benign Musculoskeletal: No swelling, No contractures Integumentary: No breakdown, No tenderness/swelling Neurological: Normal speech, Normal strength at 5/5 x4 extr - Studies Laboratory Data (last 24 hrs) 08/11/24 08/11/24 17:55 17:55 WBC 21.90 H Hgb 15.3 H Hct 45.5 H Plt Count 292 Sodium 130 L Potassium 5.8 H BUN 10 Creatinine 0.83 Glucose 282 H Total Bilirubin 0.9 AST 57 H ALT 24 Alkaline Phosphatase 137 H Lipase 22 Microbiology Data (last 24 hrs): 08/11/24 17:55 Nasopharnyx Respiratory Syncytial Virus Ag Scrn - Final 08/11/24 17:55 Nasopharnyx Influenza Type A Antigen Screen - Final 08/11/24 17:55 Nasopharnyx Influenza Type B Antigen Screen - Final <Gabi Rock - Last Filed: 08/12/24 01:43> - Studies Laboratory Data (last 24 hrs) 08/12/24 11:06 Sodium 135 L Potassium 3.9 BUN 7 Creatinine 0.54 L Glucose 280 H <Anu Brock - Last Filed: 08/13/24 07:49> Assessment and Plan - Plan Assessment plan Recurrent chronic bronchitis Leukocytosis Fever Budesonide, nebulizers, as needed antitussives Cefepime, azithromycin, pantoprazole Probiotic prevent history cdiff For pulmonary after discharge Other specified diabetes mellitus with hyperglycemia Accu-Cheks, sliding scale insulin, A1c in the a.m. Resume home Lantus Hypo-osmolality and hyponatremia Dehydration IV fluids, Full code DVT SCDs Diet diabetic Home independent prior Discharge Plan: Home - Advance Directives Does patient have a Living Will: No Does patient have a Durable POA for Healthcare: No - Code Status/Comfort Care Code Status: Full Code Critical Care: No Time Spent Managing Pts Care (In Minutes): 55 <Gabi Rock - Last Filed: 08/12/24 01:43> Date of Service: 08/11/24 Chart has been reviewed. Events of the last 24 hours have been noted. Case discussed with DANIEL. I performed a substantial part of the MDM during this patient's care today. I personally made or approved the documented management plan and acknowledge its risk of complications. I agree with the findings and documentation provided in the DANIEL's notes Patient's white blood cell count most likely related to steroid use. Otherwise workup for cough is pending. Pulmonary consultation. <Anu Brock - Last Filed: 08/13/24 07:49>
[2024-08-12] MEDS: INSULIN GLARGINE 100 UNIT/ML SQ SCH (00:59)
[2024-08-12] MEDS: GUAIFENESIN/CODEINE 5ML UCUP PO PRN (01:34)
[2024-08-12] MEDS: SODIUM ZIRCONIUM CYCLOSILICATE 10 GM/PKT PO SCH (06:00)
[2024-08-12 06:12] LABS: Absolute Basophils 0.1 K/uL (0-0.5); Absolute Eosinophils 0.2 K/uL (0-0.5); Absolute Lymphocytes (CBC) 4.4 K/uL (0.7-4.9); Absolute Monocytes 1.1 K/uL (0.1-1.3); Absolute Neutrophil 6.3 K/uL (1.8-8.0); Eosinophils % 1.6 % (0-4.4); Hematocrit 39.2 % (36.0-45.0); Hemoglobin 13.2 g/dL (12.0-15.0); Lymphocytes % 36.2 % (15.3-44.8); MCHC 33.7 g/dL (32.0-36.0); MCV 89.2 fL (80-100); Monocytes % 9.1 % (3.3-12.3); Neutrophils % 52.1 % (41.7-73.7); Platelets 250 thou/uL (152-406); RBC Red Blood Cell Count 4.39 M/uL (3.86-4.86); Red Cell Distribution Width 12.9 % (12.1-15.2)
[2024-08-12 06:24] LABS: Albumin 2.5 g/dL (3.4-5.0); Albumin/Globulin Ratio 0.6 (1.1-1.8); Alkaline Phosphatase 103 U/L (45-117); Anion Gap 7.7 mEq/L (5.0-15.0); BUN Blood Urea Nitrogen 7 mg/dL (7-18); Bicarbonate 26 mEq/L (21-32); Bilirubin Total 0.5 mg/dL (0.2-1.0); Globulin 3.9 g/dL (2.3-3.5); Glomerular Filtration Rate 119 ml/min (=/>90); Glucose Level 230 mg/dL (74-106); Magnesium 1.7 mg/dL (1.6-2.4); Potassium 3.7 mEq/L (3.5-5.1); Protein, Total 6.4 g/dL (6.4-8.2); Sodium Level 136 mEq/L (136-145)
[2024-08-12 06:25] LABS: ALT/SGPT < 14 U/L (13-56); AST/SGOT < 10 U/L (15-37)
[2024-08-12] MEDS: PANTOPRAZOLE 40MG TABLET PO SCH (06:40)
[2024-08-12] MEDS: LACTOBACILLUS/ACIDOPHILUS TAB PO SCH (08:52)
[2024-08-12] MEDS ORDERED: POTASSIUM CL SA 10 MEQ TAB PO ONE (09:00)
[2024-08-12] MEDS: MAGNESIUM SULFATE 1 gm IVPB 1 GM/100 ML BAG IV ONE (10:23)
[2024-08-12 11:35] LABS: Anion Gap 7.9 mEq/L (5.0-15.0); Potassium 3.9 mEq/L (3.5-5.1)
[2024-08-12] MEDS ORDERED: FLU (Fluarix Triv) TS24-25(6MOS UP)/PF 45 MCG/0.5 ML Syringe IM ONE (12:00)
[2024-08-12] MEDS: ALBUTEROL 2.5 MG/3 ML NEB SOL NEB PRN (20:33)
[2024-08-13 06:10] LABS: Anion Gap 8.7 mEq/L (5.0-15.0); Magnesium 1.8 mg/dL (1.6-2.4); Potassium 3.7 mEq/L (3.5-5.1)
[2024-08-13 07:45] VITALS: BMI 30.9
--- NOTE | 2024-08-13 07:53 | P.PN ---
Date of Service: 08/12/24 Subjective Patient still with cough but overall doing better. White blood cell count is improved. No source of infection noted. Pulmonary consulted. Physical Examination - Vitals Reviewed - Physical Exam General: Alert, In no apparent distress, Oriented x3, Obese Respiratory: Clear to auscultation bilaterally, Other (Chronic bronchitis, cough) Cardiovascular: Normal pulses, Regular rate/rhythm, Normal S1 S2 Gastrointestinal: Normal bowel sounds, Soft and benign Musculoskeletal: No swelling, No contractures Integumentary: No breakdown, No tenderness/swelling Neurological: No focal deficits Assessment and Plan - Assessment/Plan Assessment/Plan Recurrent chronic bronchitis Leukocytosis Fever Patient admitted for sepsis. However white count may be related to steroid use. Other specified diabetes mellitus with hyperglycemia Persistent cough. Pulmonary consulted. Strict blood sugar control and resume Lantus Hypo-osmolality and hyponatremia Dehydration IV fluids, Full code DVT SCDs Diet diabetic Home independent prior Discharge Plan: Home - Advance Directives Does patient have a Living Will: No Does patient have a Durable POA for Healthcare: No - Code Status/Comfort Care Code Status: Full Code Critical Care: No Time Spent Managing Pts Care (In Minutes): 35
[2024-08-13 10:32] VITALS: O2SAT 98
[2024-08-13 12:36] VITALS: BP 125/66; TEMP 98
--- NOTE | 2024-08-13 12:36 | P.PN ---
Subjective Date of Service: 08/13/24 Chief Complaint: Fever, leukocytosis Pt is resting comfortably in bed. Pt complains of dry cough. that has been going on for a while. CXR and CT chest are unremarkable. Waiting for pulm evaluation. No complaints. Review of Systems General: Unremarkable Eyes: Unremarkable ENT: Unremarkable Respiratory: Cough Cardiovascular: Unremarkable Gastrointestinal: Unremarkable Genitourinary: Unremarkable Musculoskeletal: Unremarkable Integumentary: Unremarkable Neurological: Unremarkable Lymphatics: Unremarkable Physical Examination - Vital Signs Temperature: 98.0 F Blood Pressure: 125/66 Pulse: 85 Respirations: 14 Pulse Ox (%): 96 - Physical Exam General: Alert, In no apparent distress, Oriented x3 HEENT: Atraumatic, Normocephalic, PERRLA Neck: Supple, 2+ carotid pulse no bruit, JVD not distended Respiratory: Clear to auscultation bilaterally, Normal air movement Cardiovascular: No edema, Normal pulses, Regular rate/rhythm Capillary refill: <2 Seconds Gastrointestinal: Normal bowel sounds, Soft and benign, Non-distended Musculoskeletal: No clubbing, No swelling, No contractures Integumentary: No rashes, No breakdown, No significant lesion Neurological: Normal gait, Normal speech, Normal strength at 5/5 x4 extr Lymphatics: No axilla or inguinal lymphadenopathy Assessment And Plan - Plan Possible Recurrent chronic bronchitis: CXR and CT chest are unremarkable. Will continue prn duoneb and oxygen. Consulted Pulm. Leukocytosis: Likely due to steroid use at home for asthma treatment. Will monitor. Will dc iv abx if ok with Pulm. Htn: Willcontinue metoprolol 5mg po daily DM II: Continue accuchek, SSI, lantus, and ADA Diet. Mild hyponatremia: Na is 135. Will continue IVF and monitor. Morbid obesity: Pt was advised to lose weight. DVT ppx: SCD Dispo: Pending hospital course.
[2024-08-13] MEDS ORDERED: METOPROLOL XL 25 MG TAB PO SCH (12:45)
--- NOTE | 2024-08-13 12:46 | P.CNS ---
Date of Consult: 08/13/24 Reason for Consult: Cough and sore throat Chief Complaint: Fever, leukocytosis History of Present Illness: Is 54 years of age currently contracted COVID in May and then developed a progressive cough treated with 2 courses of prednisone felt a little better also was prescribed albuterol recently developed some fever sore throat was advised to go to the emergency room where she was found to have leukocytosis better history of cardiopulmonary disorders never smoked Allergies No Known Allergies Allergy (Verified 08/12/24 01:02) Home Medications: Cholestyramine (with Sugar) [Cholestyramine Packet] 1 packet PO DAILY 08/12/24 Dulaglutide [Trulicity] 08/12/24 Insulin Detemir [Levemir Flexpen] 08/12/24 Montelukast [Singulair] 10 mg PO BEDTIME 08/12/24 Omeprazole 20 mg PO DAILY 08/12/24 Budesonide/Glycopyr/Formoterol [Breztri Aerosphere Inhaler] 10.7 gm IH BID 30 Days #1 aero 08/13/24 Levofloxacin [Levaquin] 500 mg PO DAILY 7 Days #7 tab 08/13/24 - Past Medical/Surgical History Diabetic: Yes -: dm -: polycystic ovaries -: migraines -: Peptic ulcer disease -: Sjogren's -: Uncontrolled diabetes -: Hypertension -: PUD -: Shingles -: Stomach ulcers -: EGD - Family History Mother Medical History: Diabetes - Social History Smoking Status: Unknown if ever smoked Alcohol use: No CD- Drugs: No Caffeine use: Yes Place of Residence: Home Review of Systems 10-point ROS is otherwise unremarkable Physical Examination Temp Pulse Resp BP Pulse Ox 98.0 F 85 14 125/66 96 08/13/24 12:38 08/13/24 12:38 08/13/24 12:38 08/13/24 12:38 08/13/24 12:38 General: Alert, In no apparent distress Neck: Supple Respiratory: Clear to auscultation bilaterally Cardiovascular: No edema, Regular rate/rhythm, Normal S1 S2 - Problems (1) Chronic cough Current Visit: Yes Status: Acute Plan: Patient is 54 years of age admitted with a chronic cough post COVID in May was treated with prednisone admitted with some fever elevated white count chest x-ray CAT scans are all normal serology for COVID is negative most likely she has post-COVID cough recommend treatment with respiratory and levofloxacin prescriptions have been sent follow-up with me in 2 weeks vital signs oxygenation satisfactory analysis negative white count has declined significantly
--- NOTE | 2024-08-13 14:01 | P.DS ---
Admission Date: 08/13/24 Discharge Date: 08/13/24 Disposition: ROUTINE DISCHARGE Discharge Condition: GOOD Reason for Admission: Fever, leukocytosis Brief History of Present Illness: 54 yrs old Female with past medical history Sjogren, diabetes - NIDDM; Hypertension; Irritable bowel syndrome; Migraines; PCOS; PUD; shingles; Stomach Ulcers; presented to the emergency room with persistent cough. Flulike symptoms, fevers over the last 2 days. She reports previously being treated with steroids. She reported symptoms coughing started with COVID and has been has been persistent. She reports being treated with antibiotics, Amoxil. recurrent bronchitis. She reports seeing Dr. Curiel she did. she denies chest pain, abdominal pain, shortness of breath, she reports blood sugars are uncontrolled, recently increasing Lantus to 50 mg at bedtime, plan to admit for leukocytosis, chronic bronchitis diabetes with hyperglycemia, Hypo-osmolality and hyponatremia Dehydration. Hospital Course: Pt is a 54 yrs old Female with past medical history Sjogren, diabetes - NIDDM, Hypertension, Irritable bowel syndrome, Migraines, PCOS, PUD, shingles, and Stomach Ulcers who presented with persistent cough, flu-like symptoms, and fevers over the past 2 days. Of note, she was treated with steroid Amoxicillin recently for recurrent bronchitis but the cough persisted. The cough started after she had COVID. We admitted pt for further evaluation. CXR and CT chest, abdomen and pelvis did not show any abnormality except 2.5cm right ovarian cyst. Pulm evaluated pt and diagnosed her with post COVID cough. Pt was advised to take levaquin 750mg po daily for 1 week and follow up with Pulm in clinic. We continued home med for other chronic medical problems. Pt was advised to lose weight. She was in NAD prior to discharge. Vital Signs/Physical Exam: Temp Pulse Resp BP Pulse Ox 98.0 F 85 14 125/66 96 08/13/24 12:38 08/13/24 12:38 08/13/24 12:38 08/13/24 12:38 08/13/24 12:38 Laboratory Data at Discharge: WBC 12.10 thou/uL (4.3-10.9) H 08/12/24 05:55 Hgb 13.2 g/dL (12.0-15.0) D 08/12/24 05:55 Hct 39.2 % (36.0-45.0) 08/12/24 05:55 Plt Count 250 thou/uL (152-406) 08/12/24 05:55 Sodium 135 mEq/L (136-145) L 08/13/24 05:37 Potassium 3.7 mEq/L (3.5-5.1) 08/13/24 05:37 BUN 8 mg/dL (7-18) 08/13/24 05:37 Creatinine 0.54 mg/dL (0.55-1.02) L 08/13/24 05:37 Glucose 223 mg/dL (74-106) H 08/13/24 05:37 Magnesium 1.8 mg/dL (1.6-2.4) 08/13/24 05:37 Total Bilirubin 0.5 mg/dL (0.2-1.0) 08/12/24 05:55 AST < 10 U/L (15-37) L 08/12/24 05:55 ALT < 14 U/L (13-56) 08/12/24 05:55 Alkaline Phosphatase 103 U/L (45-117) D 08/12/24 05:55 Lipase 22 U/L (13-75) 08/11/24 17:55 Home Medications: Cholestyramine (with Sugar) [Cholestyramine Packet] 1 packet PO DAILY 08/12/24 Dulaglutide [Trulicity] 08/12/24 Insulin Detemir [Levemir Flexpen] 08/12/24 Montelukast [Singulair] 10 mg PO BEDTIME 08/12/24 Omeprazole 20 mg PO DAILY 08/12/24 Budesonide/Glycopyr/Formoterol [Breztri Aerosphere Inhaler] 10.7 gm IH BID 30 Days #1 aero 08/13/24 Levofloxacin [Levaquin] 500 mg PO DAILY 7 Days #7 tab 08/13/24 New Medications: Budesonide/Glycopyr/Formoterol [Breztri Aerosphere Inhaler] 10.7 gm IH BID 30 Days #1 aero Levofloxacin [Levaquin] 500 mg PO DAILY 7 Days #7 tab Physician Discharge Instructions: Continue ad tori activity as tolerated. Take levaquin 750mg po daily for 1 week as prescribed. Follow up with Pulmonology and PCP within 2 weeks. Diet: AHA Activity: Ad tori Followup: Josh Messina DO [Primary Care Provider] - 1-2 Weeks
== END 2024-08-13 13:52 | disposition left against medical advice (07) | DRG 202 ==
LOC: ER 16:16 → ERHOLD 22:00 → 4TH 23:12 → OBSVTOIN 08-13 00:30
PROVIDERS: ADMIT Hospitalist; ATTEND Hospitalist
DX: J20.8 Acute bronchitis due to other specified organisms (principal); E87.1 Hypo-osmolality and hyponatremia; Z68.41 Body mass index [BMI] 40.0-44.9, adult; U09.9 Post COVID-19 condition, unspecified; E66.01 Morbid (severe) obesity due to excess calories; E86.0 Dehydration; E13.65 Other specified diabetes mellitus with hyperglycemia; I10 Essential (primary) hypertension; N83.201 Unspecified ovarian cyst, right side; D72.829 Elevated white blood cell count, unspecified; T38.0X5A Adverse effect of glucocorticoids and synthetic analogues, initial encounter; Z79.4 Long term (current) use of insulin; Z11.52 Encounter for screening for COVID-19; Z90.49 Acquired absence of other specified parts of digestive tract; Z53.29 Procedure and treatment not carried out because of patient's decision for other reasons; Z79.899 Other long term (current) drug therapy
CPT/HCPCS: 36415; 71045; 71260; 74177; 80048; 80053; 81003; 82947; 83036; 83605; 83615; 83690; 83735; 85025; 87040; 87804; 87807; 87811; 94640; 96360; 99284; G0378; J0692; J3475; J7030; J7050; J7626; Q9967